=== PATIENT | female | born 1930 | race Caucasian/White ===

== ENCOUNTER 2017-03-23 16:14 | Observation (INO) | payer MEDICARE, BC ==
[2017-03-23 16:52] LABS: Mean Platelet Volume 5.7 fL (7.4-10.4); Red Blood Cell (RBC) Count 3.39 mill/uL (4.20-5.40); White Blood Cell (WBC) Count 8.8 thou/uL (4.8-10.8)
--- NOTE | 2017-03-23 17:10 | RAD ---
PORTABLE AP CHEST X-RAY 03/23/17 HISTORY: Dizziness and left sided rib pain. History of CHF. COMPARISON: 09/22/16. Biapical pleural and parenchymal scarring is again seen, asymmetrically greater on the left, but sim ilar to the prior exam. The cardiac silhouette and pulmonary vasculature are within normal limits. I nterstitial prominence noted on the prior study is not appreciated on today's exam. The lungs are ot herwise clear. Vascular calcifications are seen in the thoracic aorta. There is osteopenia. No other interval change. IMPRESSION: 1. Stable chronic lung changes with biapical pleural and parenchymal scarring, asymmetrically g reater on the left. No acute cardiopulmonary process is seen. 2. Osteopenia. POS: [facility]
[2017-03-23 17:11] LABS: #Basophils 0.1 thou/uL (0.0-0.2); #Eosinphils 0.1 thou/uL (0.0-0.7); #Lymphocytes 2.7 thou/uL (1.20-3.40); #Monocytes 0.8 thou/uL (0.11-0.59); #Neutrophils 5.2 thou/uL (1.40-6.50); %Basophils 0.6 % (0.0-1.0); %Eosinophils 1.2 % (0.0-10.0); %Lymphocytes 30.6 % (21.0-51.0); %Monocytes 8.7 % (0.0-10.0)
[2017-03-23 17:12] LABS: Macrocytosis SLIGHT = 6-15 cells (100X) (0-5/hpf)
[2017-03-23 17:18] LABS: ALT (SGPT) 28 U/L (8-55); AST (SGOT) 32 U/L (5-34); Alkaline Phosphatase 59 U/L (40-150); Anion Gap 11 mmol/L (10-20); BUN (Urea Nitrogen) 47 mg/dL (9.8-20.1); Bilirubin, Total 0.4 mg/dL (0.2-1.2); Calc. Creatinine Clearance 0 mL/min (70-130); Calcium 10.1 mg/dL (7.8-10.44); Carbon Dioxide 30 mmol/L (23-31); Chloride 103 mmol/L (98-107); Estimated GFR-MDRD 31; Protein, Total 7.8 g/dL (6.0-8.3); Troponin I Less than 0.010 ng/mL (< 0.028)
[2017-03-23] MEDS ORDERED: Acetaminophen 500 MG TAB ONE (18:02)
--- NOTE | 2017-03-23 18:14 | CT ---
CT ABDOMEN AND PELVIS WITHOUT IV CONTRAST 03/23/17 HISTORY: Left sided abdominal pain, predominantly in the left upper quadrant. history of hysterectomy as well as prior bowel resection and appendectomy and cholecystectomy. COMPARISON: 07/12/13. FINDINGS: As noted on a prior exam, there are bilateral nonobstructing renal calculi. There is a large hypodense lesion at the inferior pole left kidney with prominent hypodense lesion a gain seen at the superior pole left kidney, each of which is large in size compared to the prior angella dy but again likely represents cysts. There are subcentimeter too small to characterize hypodense l esions in the right kidney also statistically likely representing cysts. The liver, spleen, pancreas, bilateral adrenal glands, and urinary bladder demonstrate a grossly nor mal nonenhanced CT appearance. No ureteral calculi are seen and there is no hydronephrosis. Dense vascular calcifications are again seen in the abdominal aorta and involving the iliac arteries . Moderate amount of retained fecal material seen throughout the colon suggesting an element of consti pation. Degenerative changes are again present in the spine. Postsurgical changes related to cholecystectomy as well as hysterectomy are noted. There has been no other interval change from prior exam. IMPRESSION: 1. Nonobstructing bilateral renal calculi. 2. Large left renal cyst with difficult to characterize hypodense right renal lesions also stat istically likely representing cysts. 3. Cholecystectomy and hysterectomy. 4. Constipation. 5. Prominent degenerative changes in the spine. 6. No evidence of a bowel obstruction. POS: [facility]
[2017-03-23 18:36] LABS: Bilirubin Negative (Negative); Blood, Urine Negative (Negative); Glucose, Urine (Dipstick) Negative (Negative); Ketone, Urine Negative (Negative); Nitrite Negative (Negative); Protein, Urine (Dipstick) Negative (Neg-Trace); Urobilinogen 0.2 mg/dL (0.2-1.0)
[2017-03-23 21:55] LABS: Troponin I Less than 0.010 ng/mL (< 0.028)
[2017-03-23] MEDS ORDERED: Ondansetron ODT 4 MG TAB SL PRN (22:13)
[2017-03-23] MEDS ORDERED: Ondansetron HCl/PF 4 MG/2 ML Vial IVP PRN ×2 (22:13→22:36)
[2017-03-23] MEDS ORDERED: Acetaminophen 325 MG TAB PO PRN (22:13)
[2017-03-23] MEDS ORDERED: Ondansetron ODT 4 MG TAB PO PRN (22:36)
[2017-03-23] MEDS ORDERED: cloNIDine HCl 0.1 MG TAB PO PRN (22:36)
[2017-03-23] MEDS ORDERED: Acetaminophen 500 MG TAB PO PRN (22:36)
[2017-03-23 22:58] VITALS: BMI 16.6
[2017-03-24 00:22] LABS: Troponin I 0.012 ng/mL (< 0.028)
[2017-03-24] MEDS: Sodium Chloride 0.9% 1,000 ML IV SCH ×2 (00:50→13:36)
--- NOTE | 2017-03-24 01:07 | HP ---
DATE OF ADMISSION: 03/23/2017 PRIMARY CARE PHYSICIAN: Dr. Sukhwinder Dawson. CHIEF COMPLAINT: General weakness, headache, abdominal pain, and rib pain. HISTORY OF PRESENT ILLNESS: This is an 86-year-old female who presents to [facility] with a multitude of complaints seemingly unrelated. The patient's history is dif ficult to follow as she complains of multiple somatic complaints including abdominal pain, constipat ion, rib pain, headache and general weakness. The patient denies any specific fever, chills or expo sure history. The patient states she is living in the [place], [place] area with her family. Ambulates with a rolling walker, but does have a history of falls. The patient denies any recent fall or inj ury, decreased appetite or change to her bowel habits other than the constipation, which is chronic. The patient denies any specific increased shortness of breath, fever, chills, cough, congestion or recent vaccinations. The patient is unsure of any change to her chronic medication regimen. The p atient gives a vague description of her symptoms and does not correlate them as clusters of symptoms or any relationship. The patient denied any specific visual change, unilateral weakness, recent lo calize trauma, hematemesis or melena. In the emergency room, the patient underwent general evaluati on including CT of the abdomen and pelvis showing large amount of retained fecal material consistent with constipation. Chronic changes noted on the scan, please see dictated report for full details. The patient also underwent chest imaging showing no evidence of acute infiltrate. The patient rec eived Tylenol and was transferred to the telemetry unit for observation. PAST MEDICAL HISTORY: 1. History of diastolic congestive heart failure with ejection fraction of 50% to 55%. 2. Hypertension. 3. Hypothyroidism. 4. Chronic kidney disease, stage 3. 5. Chronic macrocytic anemia. 6. Moderate protein calorie malnutrition. 7. Gastroesophageal reflux disease. 8. Anxiety. 9. Question of Alzheimer's dementia. 10. Chronic obstructive pulmonary disease. 11. Chronic hyponatremia. PAST SURGICAL HISTORY: 1. Status post appendectomy. 2. Status post cholecystectomy. 3. Status post renal lithiasis with lithotripsy. 4. Status post hysterectomy. CURRENT MEDICATIONS: 1. Vitamin C 1 tab p.o. daily. 2. Azelastine 0.15% one spray in each naris daily p.r.n. 3. Symbicort 160/4.5 one puff inhaled b.i.d. 4. Multivitamin 1 tab p.o. daily. 5. Coreg 6.25 mg p.o. b.i.d. 6. Cranberry extract 500 mg p.o. daily. 7. Vitamin B12 of 1000 mcg p.o. daily. 8. Estradiol 0.01% vaginal cream 1 unit vaginally daily. 9. Ferrous sulfate 325 mg p.o. b.i.d. 10. Flovent Diskus 50 mcg 1 spray in each naris daily. 11. Latanoprost 0.005% ophthalmic solution 1 drop to each eye daily. 12. Levothyroxine 50 mcg p.o. daily. 13. Lisinopril 10 mg one tab p.o. daily. 14. Myrbetriq 50 mg p.o. daily. 15. Remeron 15 mg p.o. at bedtime. 16. Osphena 60 mg 1 tab p.o. daily. 17. Protonix 40 mg 1 tab p.o. daily. 18. MiraLax 17 grams p.o. daily. 19. Seroquel 50 mg p.o. at bedtime. 20. BuSpar 15 mg p.o. b.i.d. ALLERGIES: ASPIRIN, CODEINE, DOXYCYCLINE, ERYTHROMYCIN, and ADHESIVE TAPE. FAMILY HISTORY: No inheritable diseases per patient report. SOCIAL HISTORY: The patient resides with multiple family members in the [place], [place] area. Ambulat ory with use of a rolling walker. No current tobacco, alcohol or illicit drug use. REVIEW OF SYSTEMS: The following complete review of systems was negative, unless otherwise mentione d in the HPI or below: Constitutional: Weight loss or gain, ability to conduct usual activities. Skin: Rash, itching. Eyes: Double vision, pain. ENT/Mouth: Nose bleeding, neck stiffness, pain, tenderness. Cardiovascular: Palpitations, dyspnea on exertion, orthopnea. Respiratory: Shortness of breath, wheezing, cough, hemoptysis, fever or night sweats. Gastrointestinal: Poor appetite, abdominal pain, heartburn, nausea, vomiting, constipation, or diar jayshree. Genitourinary: Urgency, frequency, dysuria, nocturia. Musculoskeletal: Pain, swelling. Neurologic/Psychiatric: Anxiety, depression. Allergy/Immunologic: Skin rash, bleeding tendency. PHYSICAL EXAMINATION: VITAL SIGNS: On admission, blood pressure 127/67, pulse 80, respiratory rate 20, temperature 98 deg alyssia Fahrenheit, O2 saturation 100% on room air. GENERAL APPEARANCE: This is an 86-year-old female, alert and oriented x2, pleasant, conve rsant, in no acute distress. HEENT: Pupils are equal, round, and reactive to light and accommodation. Extraocular muscles are i ntact. No scleral icterus, no conjunctival injection. Nares patent. OP is clear. Teeth in fair r epair. NECK: Supple, no cervical adenopathy, no thyromegaly, no carotid bruits, no JVD appreciated. Cervi patrica spine with full active and passive range of motion. CHEST: Lungs are clear to auscultation bilaterally. CARDIOVASCULAR: S1, S2, with a 2/6 systolic ejection murmur in the left upper sternal border. ABDOMEN: Rounded, soft, nontender, nondistended. Bowel sounds are positive in all four quadrants. There is no hepatosplenomegaly, no abdominal bruits, no rebound or guarding appreciated. EXTREMITIES: Warm and dry with fair turgor. No clubbing, cyanosis or asymmetric edema appreciated. Pulses palpable distally at the dorsalis pedis, posterior tibial and popliteal arteries bilaterall y. Capillary refill less than 2 seconds. NEUROLOGIC: Cranial nerves II-XII are grossly intact. No focal or lateralizing signs appreciated. PERTINENT LABORATORY AND X-RAY FINDINGS: BUN 47, creatinine 1.59 with estimated GFR of 31, glucose 131, calcium 10.1. LFTs within normal limits. Troponin I negative x2. BNP 251, previously noted 1 423 on 09/22/2016. CBC showed a white blood cell count of 8.8, hemoglobin 12, hematocrit 37, MCV 10 9, platelet count 344 with normal differential. Urinalysis shows small leukocyte esterase. Portabl e chest x-ray dated 03/23/2017 showed chronic changes in bilateral lung glass. CT of the abdomen a nd pelvis dated 03/23/2017 showed moderate amount of retained fecal material throughout the colon maldonado ggestive of constipation. Large left renal cyst. Right renal lesion consistent with cysts. Nonobs tructive bilateral renal calculi. Prominent degenerative changes of the spine. EKG dated 7 by my interpretation shows sinus mechanism with heart rates in the 80s. Premature atrial complexe s noted. Normal R-wave progression noted in the precordial leads. Normal axis. No acute ST-T wave changes appreciated. ASSESSMENT AND PLAN: 1. Abdominal pain, appears secondary to constipation. Continue supportive measures. Stool softene rs and lactulose 20 grams p.o. daily p.r.n. Continue to monitor voiding. 2. Multiple somatic complaints, etiology unclear. No specific evidence of acute pathology. Suspec t musculoskeletal in origin. 3. Acute kidney injury on chronic kidney disease, stage 2-3. We will continue intravenous normal s lian at 75 mL per hour and avoid nephrotoxic agents and contrast media. Repeat creatinine in the a .m. 4. Anxiety/depression. Appears prominent role in patient's presentation. We will resume home nakia men of anxiolytics and monitor clinically. 5. Hypertension. We will resume home antihypertensive regimen and monitor clinically. Hold lisino pril due to acute kidney injury. 6. Deconditioning with history of falls. We will obtain PT evaluation in the a.m. General fall pr ecautions. 7. Prophylaxis. Sequential compression devices while in bed. Pepcid 20 mg p.o. b.i.d. PT evaluat ion pending. 8. Code status is FULL. Surrogate medical decision maker is the patient's daughter.
[2017-03-24 05:47] LABS: Band 7 % (5-11); Hematocrit 33.2 % (36.0-47.0); Mean Platelet Volume 5.7 fL (7.4-10.4); Neutrophil 55 % (42-75); Red Blood Cell (RBC) Count 3.03 mill/uL (4.20-5.40); White Blood Cell (WBC) Count 8.5 thou/uL (4.8-10.8)
[2017-03-24 05:52] LABS: Anion Gap 9 mmol/L (10-20); BUN (Urea Nitrogen) 49 mg/dL (9.8-20.1); Calc. Creatinine Clearance 20 mL/min (70-130); Calcium 9.3 mg/dL (7.8-10.44); Carbon Dioxide 28 mmol/L (23-31); Chloride 107 mmol/L (98-107); Estimated GFR-MDRD 34
[2017-03-24] MEDS ORDERED: Levothyroxine Sodium 50 MCG TAB PO SCH (06:00)
[2017-03-24] MEDS ORDERED: Polyethylene Glycol 3350 17 GM Packet PO SCH (09:00)
[2017-03-24] MEDS ORDERED: FLU VACC TS2017-18 (>65YR) 0.5 ML SYRINGE IM ONE (09:00)
[2017-03-24] MEDS ORDERED: Latanoprost 0.005% Ophth Soln 2.5 ml Bottle EA EYE SCH (09:00)
[2017-03-24] MEDS ORDERED: Famotidine 20 MG TAB PO SCH (09:00)
[2017-03-24] MEDS: Carvedilol 6.25 MG TAB PO SCH ×2 (09:16→20:36)
--- NOTE | 2017-03-24 13:56 | PDOC.PN ---
- Subjective Encounter Start Date: 03/24/17 Encounter Start Time: 08:00 Pt seen for followup re: constipation. Reports generalized weakness. No chest pain, fevers or chills. - Objective Resuscitation Status: Resuscitation Status FULL:Full Resuscitation MAR Reviewed: Yes Vital Signs & Weight: Vital Signs (12 hours) Temp Pulse Resp BP BP Pulse Ox 03/24/17 11:10 96.1 F L 83 12 132/99 H 96 03/24/17 09:16 169/74 H 03/24/17 09:10 96.1 F L 83 12 169/74 H 95 03/24/17 04:00 98.1 F 90 18 167/78 H 94 L Weight Admit Weight 100 lb Weight 100 lb I&O: 03/23/17 03/24/17 03/25/17 06:59 06:59 06:59 Intake Total 650 Output Total 600 Balance 50 Result Diagrams: 03/24/17 05:10 03/24/17 05:10 EKG Reviewed by me: Yes (Tele: NSR) Phys Exam - Physical Examination Constitutional: NAD HEENT: moist MMs, oral pharynx no lesions Neck: supple Respiratory: no wheezing, no rales, no rhonchi, clear to auscultation bilateral Cardiovascular: RRR, no rub Gastrointestinal: soft, no distention, positive bowel sounds Mild suprapubic tenderness, no guarding or rigidity Musculoskeletal: pulses present Neurological: moves all 4 limbs Psychiatric: normal affect Skin: no rash, normal turgor, cap refill <2 seconds Dx/Plan (1) Constipation Code(s): K59.00 - CONSTIPATION, UNSPECIFIED Status: Acute (2) Generalized weakness Code(s): R53.1 - WEAKNESS Status: Acute (3) Alzheimer's dementia Code(s): G30.9 - ALZHEIMER'S DISEASE, UNSPECIFIED Status: Chronic (4) COPD (chronic obstructive pulmonary disease) Status: Chronic Comment: (5) GERD (gastroesophageal reflux disease) Code(s): K21.9 - GASTRO-ESOPHAGEAL REFLUX DISEASE WITHOUT ESOPHAGITIS Status: Chronic (6) Glaucoma Code(s): H40.9 - UNSPECIFIED GLAUCOMA Status: Chronic (7) Hypertension Code(s): I10 - ESSENTIAL (PRIMARY) HYPERTENSION Status: Chronic (8) Hypothyroidism Code(s): E03.9 - HYPOTHYROIDISM, UNSPECIFIED Status: Chronic (9) Protein-calorie malnutrition, moderate Code(s): E44.0 - MODERATE PROTEIN-CALORIE MALNUTRITION Status: Chronic - Plan PT/OT, out of bed/ambulate, DVT proph w/SCDs * . laxatives for constipation. Rehab screen. CKD stable. Dementia stable. GERD stable. Monitor vital signs and titrate antihypertensives as needed. Review of Systems - Review of Systems Constitutional: negative: Fever, Chills, Sweats, Weakness, Malaise Respiratory: negative: Cough, Dry, Shortness of Breath, Hemoptysis, SOB with Excertion, Pleuritic Pain, Sputum, Wheezing Cardiovascular: negative: Chest Pain, Palpitations, Orthopnea, Paroxysmal Noc. Dyspnea, Edema, Light Headedness Gastrointestinal: Abdominal Pain, Constipation. negative: Nausea, Vomiting, Diarrhea, Melena, Hematochezia Genitourinary: negative: Dysuria, Frequency, Incontinence, Hematuria, Retention - Medications/Allergies Allergies/Adverse Reactions: Allergies Allergy/AdvReac Type Severity Reaction Status Date / Time adhesive Allergy Verified 09/04/16 03:52 aspirin Allergy Verified 09/04/16 03:52 codeine Allergy Verified 09/04/16 03:52 doxycycline Allergy Verified 09/04/16 03:52 erythromycin base Allergy Verified 09/04/16 03:52 [Erythromycin Base] Latex, Natural Rubber Allergy Verified 09/04/16 03:52 montelukast Allergy Verified 09/04/16 03:52 Penicillins Allergy Verified 09/04/16 03:52 Sulfa (Sulfonamide Allergy Verified 09/04/16 03:52 Antibiotics) Medications: Current Medications Acetaminophen (Tylenol) 1,000 mg PO Q6H PRN PRN Reason: Headache/Fever or Mild Pain Last Admin: 03/24/17 00:49 Dose: 1,000 mg Carvedilol (Coreg) 6.25 mg PO BID [facility] Last Admin: 03/24/17 09:16 Dose: 6.25 mg Clonidine HCl (Catapres) 0.1 mg PO Q4H PRN PRN Reason: Systolic BP > 180 Famotidine (Pepcid) 20 mg PO DAILY [facility] Last Admin: 03/24/17 09:17 Dose: 20 mg Hydralazine HCl (Apresoline) 10 mg SLOW IVP Q4H PRN PRN Reason: Systolic BP > 180 Sodium Chloride (Normal Saline 0.9%) 1,000 mls @ 75 mls/hr IV .[id number] [facility] Last Admin: 03/24/17 13:36 Dose: 1,000 mls Lactulose (Lactulose) 20 gm PO DAILYPRN PRN PRN Reason: Constipation Last Admin: 03/24/17 09:47 Dose: 20 gm Latanoprost (Xalatan 0.005% Ophth Soln) 1 drop EA EYE DAILY [facility] Last Admin: 03/24/17 08:24 Dose: Not Given Levothyroxine Sodium (Synthroid) 50 mcg PO 0600 [facility] Last Admin: 03/24/17 05:23 Dose: 50 mcg Mirabegron (Myrbetriq Er) 50 mg PO DAILY [facility] Last Admin: 03/24/17 08:24 Dose: Not Given Ondansetron HCl (Zofran Odt) 4 mg PO Q6H PRN PRN Reason: Nausea/Vomiting Ondansetron HCl (Zofran) 4 mg IVP Q6H PRN PRN Reason: Nausea/Vomiting Polyethylene Glycol (Miralax) 17 gm PO DAILY [facility] Last Admin: 03/24/17 09:17 Dose: 17 gm Sodium Chloride (Flush - Normal Saline) 10 ml IVF Q12HR [facility] Sodium Chloride (Flush - Normal Saline) 10 ml IVF PRN PRN PRN Reason: Saline Flush
[2017-03-24] MEDS ORDERED: Bisacodyl 5 MG TAB PO PRN (14:00)
[2017-03-24] MEDS ORDERED: Bisacodyl 5 MG TAB PO SCH (14:00)
--- NOTE | 2017-03-24 18:37 | DIS ---
DATE OF ADMISSION: 03/23/2017 DATE OF DISCHARGE: 03/24/2017 PRIMARY CARE PROVIDER: Sukhwinder Dawson M.D. DISCHARGE DIAGNOSIS: Constipation, resolved. CONDITION OF PATIENT AT THE TIME OF DISCHARGE: Stable. I assessed Ms. Pineda on the day of discha rge. Please refer to my daily hospitalist progress note for further information regarding this face -to-face encounter. DISCHARGE MEDICATIONS: In addition to the preadmission home medications listed on history and physi patrica note from 03/23/2017, she is being started on Dulcolax 10 mg daily as needed. HOSPITAL COURSE: Ms. Pineda is a pleasant 86-year-old lady who was admitted to [facility] for abdominal discomfort on 03/23/2017. She was found to be constipated. She improv ed with laxatives. She is being discharged home in a stable condition. On the day of discharge, she has sodium 140, potassium 4.3, blood urea nitrogen 49, creatinine 1.44, white count 8500, hemoglobin 10.9, and platelet count 282,000. She is advised to follow up with her primary care provider in 3-5 days. She was offered rehab sunge n during this admission. She refused rehab screen and wished to go home. She was ambulating with animal rehabilitator today without any complaints. Many thanks for allowing me to participate in your patient's care. Please feel free to contact me w ith any questions or concerns. DISCHARGE DISPOSITION: Home.
[2017-03-24 20:07] VITALS: BP 178/77; TEMP 97.9
== END 2017-03-24 21:29 | disposition home or self-care (01) ==
LOC: ERS 16:14 → 2NO 20:00
PROVIDERS: ADMIT Internal Medicine; ATTEND Internal Medicine
DX: K59.00 Constipation, unspecified (principal); R10.9 Unspecified abdominal pain; R07.81 Pleurodynia; R53.1 Weakness; I13.0 Hypertensive heart and chronic kidney disease with heart failure and stage 1 through stage 4 chronic kidney disease, or unspecified chronic kidney disease; I50.30 Unspecified diastolic (congestive) heart failure; N18.3 Chronic kidney disease, stage 3 (moderate); N17.9 Acute kidney failure, unspecified; E03.9 Hypothyroidism, unspecified; D64.9 Anemia, unspecified; E44.0 Moderate protein-calorie malnutrition; F41.9 Anxiety disorder, unspecified; F32.9 Major depressive disorder, single episode, unspecified; K21.9 Gastro-esophageal reflux disease without esophagitis; J44.9 Chronic obstructive pulmonary disease, unspecified; E87.1 Hypo-osmolality and hyponatremia; Z79.51 Long term (current) use of inhaled steroids; Z79.1 Long term (current) use of non-steroidal anti-inflammatories (NSAID); Z79.890 Hormone replacement therapy; Z79.899 Other long term (current) drug therapy; Z88.6 Allergy status to analgesic agent; Z88.1 Allergy status to other antibiotic agents; Z88.5 Allergy status to narcotic agent; Z91.048 Other nonmedicinal substance allergy status; Z91.040 Latex allergy status; Z88.0 Allergy status to penicillin; Z88.2 Allergy status to sulfonamides; Z90.49 Acquired absence of other specified parts of digestive tract; Z90.710 Acquired absence of both cervix and uterus; Z98.890 Other specified postprocedural states; Z91.81 History of falling; Z87.891 Personal history of nicotine dependence
CPT/HCPCS: 71010; 74176; 80048; 80053; 82553; 83880; 84484 ×2; 85007; 85025; 85027; 93005; 96360; 96361; 97116; 97139 ×2; 99285; G0378; G8978; G8979; G8980; 36415; 81003; 81015; A4353

== ENCOUNTER 2018-01-23 13:33 | Emergency (ER) | payer MEDICARE, BC ==
[2018-01-23 14:40] LABS: Bilirubin Negative (Negative); Clarity CLEAR (Clear); Glucose, Urine (Dipstick) Negative (Negative); Leukocyte Trace (Negative); Nitrite Negative (Negative); Protein, Urine (Dipstick) Negative (Neg-Trace); Specific Gravity, Urine 1.012 (1.002-1.036); Urobilinogen 0.2 mg/dL (0.2-1.0); pH, Urine 5.5 (5.0-9.0)
[2018-01-23 14:41] LABS: Bacteria/HPF None Seen HPF (None Seen); Hyaline Casts/LPF 0-3 HYALINE CAST LPF (0-3 Hyaline); Pathc Cast-AUWi Flag 0.29 (0-2.49); Squamous Epithelial 0-3 HPF (0-3)
[2018-01-23 14:53] LABS: Blood, Urine Small (Negative)
[2018-01-23 14:59] LABS: #Basophils 0.1 thou/uL (0.0-0.2); #Eosinphils 0.1 thou/uL (0.0-0.7); #Lymphocytes 1.3 thou/uL (1.20-3.40); #Monocytes 0.9 thou/uL (0.11-0.59); #Neutrophils 9.3 thou/uL (1.40-6.50); %Basophils 0.5 % (0.0-1.0); %Eosinophils 0.8 % (0.0-10.0); %Monocytes 7.9 % (0.0-10.0); %Neutrophils 79.8 % (42.0-75.0); Hemoglobin 10.3 g/dL (12.0-16.0); Mean Corpuscular HGB CONC 34.7 g/dL (32.0-36.0); Mean Corpuscular Hemoglobin 35.1 pg (27.0-31.0); Mean Platelet Volume 5.8 fL (7.4-10.4); Platelet Count 277 thou/uL (130-400); Red Blood Cell (RBC) Count 2.94 mill/uL (4.20-5.40); White Blood Cell (WBC) Count 11.7 thou/uL (4.8-10.8)
[2018-01-23 15:11] LABS: ALT (SGPT) 18 U/L (8-55); AST (SGOT) 29 U/L (5-34); Alkaline Phosphatase 129 U/L (40-150); Anion Gap 10 mmol/L (10-20); BUN (Urea Nitrogen) 43 mg/dL (9.8-20.1); Bilirubin, Total 0.5 mg/dL (0.2-1.2); Calc. Creatinine Clearance 0 mL/min (70-130); Calcium 9.3 mg/dL (7.8-10.44); Carbon Dioxide 27 mmol/L (23-31); Chloride 107 mmol/L (98-107); Estimated GFR-MDRD 31; Globulin 3.4 g/dL (2.4-3.5); Glucose 109 mg/dL (83-110); Potassium 4.4 mmol/L (3.5-5.1); Protein, Total 7.4 g/dL (6.0-8.3); Sodium 140 mmol/L (136-145)
--- NOTE | 2018-01-23 15:13 | RAD ---
CHEST 1 VIEW: HISTORY: Weakness. COMPARISON: Chest radiograph 03/23/17. FINDINGS: There is an abnormal nodular density in the left lung apex. Lungs are slightly hyperinflated. There is some scarring in the right lung apex. There is mild ectasia of the aorta. Dense calcifications of transverse aorta. IMPRESSION: Abnormal nodular density in the left lung apex appears relatively similar to slightly increased from 2016. Nonemergent CT chest may be performed if clinically warranted. POS: [facility]
[2018-01-23 15:16] LABS: CKMB 2.4 ng/mL (0-6.6); Troponin I Less than 0.010 ng/mL (< 0.028)
== END 2018-01-23 17:09 | disposition home or self-care (01) ==
LOC: ERS 13:33
DX: I11.0 Hypertensive heart disease with heart failure (principal); I50.9 Heart failure, unspecified; R55 Syncope and collapse; E03.9 Hypothyroidism, unspecified; Z79.899 Other long term (current) drug therapy
CPT/HCPCS: 36415; 51701; 71045; 80053; 81003; 81015; 82553; 83880; 84484; 85025; 87086; 93005; A4353

== ENCOUNTER 2018-02-17 10:49 | Inpatient (IN) | payer MEDICARE, BC ==
[~2018-02-17 10:49] MED LIST: ISOVUE-370 76%-LOCM 1 ML ONE
[2018-02-17 11:22] LABS: Hemoglobin 8.9 g/dL (12.0-16.0); Mean Corpuscular HGB CONC 31.4 g/dL (32.0-36.0); Mean Corpuscular Hemoglobin 31.5 pg (27.0-31.0); Platelet Count 278 thou/uL (130-400); RBC Distribution Width 12.4 % (11.5-14.5); Red Blood Cell (RBC) Count 2.82 mill/uL (4.20-5.40)
[2018-02-17] MEDS ORDERED: cefTRIAXone\\ROCEPHIN 2 GM VIAL ONE (11:29)
[2018-02-17] MEDS ORDERED: Acetaminophen 325 MG TAB ONE (11:29)
[2018-02-17 11:43] LABS: ALT (SGPT) 14 U/L (8-55); AST (SGOT) 23 U/L (5-34); Albumin 3.8 g/dL (3.4-4.8); Alkaline Phosphatase 114 U/L (40-150); Anion Gap 15 mmol/L (10-20); BUN (Urea Nitrogen) 37 mg/dL (9.8-20.1); Bilirubin, Total 0.3 mg/dL (0.2-1.2); Calc. Creatinine Clearance 26 mL/min (70-130); Calcium 9.3 mg/dL (7.8-10.44); Carbon Dioxide 19 mmol/L (23-31); Chloride 106 mmol/L (98-107); Estimated GFR-MDRD 42; Globulin 3.7 g/dL (2.4-3.5); Glucose 124 mg/dL (83-110); Potassium 4.3 mmol/L (3.5-5.1); Protein, Total 7.5 g/dL (6.0-8.3); Sodium 136 mmol/L (136-145)
[2018-02-17] MEDS ORDERED: GENTAMICIN SULFATE IVPB SCH (11:45)
[2018-02-17] MEDS ORDERED: SODIUM CHLORIDE 0.9% IVPB SCH (11:45)
[2018-02-17 11:58] LABS: Bilirubin Negative (Negative); Blood, Urine Small (Negative); Clarity CLEAR (Clear); Glucose, Urine (Dipstick) Negative (Negative); Leukocyte Negative (Negative); Nitrite Negative (Negative); Protein, Urine (Dipstick) Negative (Neg-Trace); Specific Gravity, Urine 1.014 (1.002-1.036); Urobilinogen 0.2 mg/dL (0.2-1.0)
[2018-02-17 11:59] LABS: Bacteria/HPF None Seen HPF (None Seen); Hyaline Casts/LPF 0-3 HYALINE CAST LPF (0-3 Hyaline); Pathc Cast-AUWi Flag 0.29 (0-2.49); Squamous Epithelial None Seen HPF (0-3); WBC/HPF 0-3 HPF (0-3)
[2018-02-17 12:00] LABS: Band 5 % (5-11); Hypochromia MODERATE=16-30 cells (100X) (0-5/hpf); Lymphocytes 8 % (21-51); MDiff Complete? YES; Mean Platelet Volume 6.5 fL (7.4-10.4); Microcytosis SLIGHT = 6-15 cells (100X) (0-5/hpf); Neutrophil 85 % (42-75); Reactive Lymphocytes 2 % (0-10); White Blood Cell (WBC) Count 20.5 thou/uL (4.8-10.8)
--- NOTE | 2018-02-17 14:21 | RAD ---
CHEST 1 VIEW: HISTORY: An 87-year-old female with a history of fever and urinary retention. COMPARISON: 01/23/18. FINDINGS: Stable biapical pleural-based parenchymal changes slightly more prominent on the left. Bilateral david ulder joint arthrosis. Minimal stable increased linear and interstitial markings in the lungs bilate rally. Heart size is within normal limits. IMPRESSION: Stable parenchymal changes bilaterally, particularly in the apices. No confluent pneumonia, overt ed graham, or pleural effusion. Atherosclerosis of the aorta with ectasia. No evidence for pneumonia. POS: [facility]
--- NOTE | 2018-02-17 14:49 | CT ---
ABDOMEN AND PELVIC CT SCAN WITH IV CONTRAST: HISTORY: An 87-year-old female with a history of urinary retention with chills and fever last night. FINDINGS: The lung bases show no acute process. Status post cholecystectomy. Minimal dilatation of the common bile duct and some mild central hepatic ductal dilatation. The pancreas is somewhat small. The spl een is unremarkable. Multiple bilateral renal cysts with some nonobstructing bilateral renal calculi . No evidence for acute obstruction. Postoperative changes in the region of the cecum. There is a Johnson catheter within the urinary bladder. There is some multilevel lumbar spinal canal stenosis. Arteriovascular calcific changes. No abscess or abnormal fluid collection. IMPRESSION: Nonobstructing bilateral renal calculi. Multiple bilateral renal cysts. Status post cholecystectomy with mild dilatation of the common bile duct and central intrahepatic ducts. No evidence for other significant acute process in the abdomen or pelvis. Other findings as above. Small right fat-contai jared inguinal hernia. POS: [facility]
[2018-02-17] MEDS ORDERED: PROVENTIL INHALER 6.7 G (200 INHALATIONS) INH PRN (15:31)
--- NOTE | 2018-02-17 16:13 | HP ---
REASON FOR ADMISSION: Sepsis, possible urinary tract infection. HISTORY OF PRESENTING ILLNESS: The patient gives history of having lower quadrant abdominal pain fro m yesterday evening. She initially thought she had trouble passing urine. She had to go multiple ti mes and was in fact having incontinence in addition to that. She woke up early this morning with fev er and chills. As this was unrelenting, patient was brought to emergency room. Patient says she has had upper respiratory infection 2 weeks back and was given doxycycline for 5 days along with antihis tamine as well. Her last bowel movement was yesterday. No diarrhea, nausea or vomiting. No complai nts of chest pain or palpitation. The patient normally ambulates by herself, but occasionally uses a walker. No complaints of cough or expectoration at present. PAST MEDICAL AND SURGICAL HISTORY: History of recurrent urinary tract infections, hypertension, hist ory of diastolic dysfunction with ejection fraction of 50%-55%, hypothyroidism, chronic anemia, GERD, anxiety, dementia, COPD, history of recurrent chronic hyponatremia, appendectomy, cholecystectomy, p rior history of multiple cysts in the kidneys with stones and prior lithotripsy, history of hysterect tad. CURRENT MEDICATIONS: Patient is on mirtazapine 15 mg p.o. daily, levothyroxine 50 mcg p.o. daily, as pirin 81 mg p.o. daily, Tylenol 500 mg p.o. twice daily, Osphena 60 mg twice daily, this is to build her vaginal tissue in view of recurrent UTIs and low estrogen, Coreg 6.25 mg twice daily, Seroquel 50 mg p.o. at bedtime, Meloxicam 15 mg p.o. daily, buspirone 15 mg p.o. twice daily, lisinopril 10 mg p .o. q.a.m., ferrous sulfate 325 mg twice daily, glucosamine 1000 mg daily, Symbicort inhaler 160/4.5 mcg 2 puffs twice daily, azelastine nasal spray, albuterol inhaler q.6 hourly p.r.n., vitamin D 600 m g p.o. daily, Lasix 20 mg daily, lisinopril 10 mg daily. ALLERGIES: ADHESIVES, CODEINE, ERYTHROMYCIN, LATEX, SINGULAIR and SULFA. Please note, patient is no t allergic to aspirin and has been taking it for the last 2 weeks now. PERSONAL HISTORY: Quit smoking more than 30 years ago. Does not abuse alcohol or drugs. Ambulates by herself, occasionally uses a walker. She lives with her daughter. FAMILY HISTORY: There is no history of heart disease, stroke or cancer in the family. CODE STATUS: The patient is a DNR. I have discussed this with her at bedside. This was confirmed w ith her daughter, Ms. Minor. Ms. Minor is the power of environmental sciences professor for her and the number to reach her is [phone] and [phone] that is her cell number; in case one cannot reach Ms. Minor, her nep hew's number, who also lives with them is [phone]. REVIEW OF SYSTEMS: The following complete review of systems was negative, unless otherwise mentioned in the HPI or below: Constitutional: Weight loss or gain, ability to conduct usual activities. Skin: Rash, itching. Eyes: Double vision, pain. ENT/Mouth: Nose bleeding, neck stiffness, pain, tenderness. Cardiovascular: Palpitations, dyspnea on exertion, orthopnea. Respiratory: Shortness of breath, wheezing, cough, hemoptysis, fever or night sweats. Gastrointestinal: Poor appetite, abdominal pain, heartburn, nausea, vomiting, constipation, or diarr hea. Genitourinary: Urgency, frequency, dysuria, nocturia. Musculoskeletal: Pain, swelling. Neurologic/Psychiatric: Anxiety, depression. Allergy/Immunologic: Skin rash, bleeding tendency. PHYSICAL EXAMINATION: GENERAL: The patient is an 87-year-old female who is currently not in any acute distress. VITAL SIGNS: Blood pressure 120/64, pulse 120 per minute, respiratory rate 20 per minute, temperatur e 98.6 degrees Fahrenheit, saturating 94% on room air. NECK: Supple, no elevated JVD. EYES: Extraocular muscles intact. Pupils reacting to light. ORAL CAVITY: Mucous membranes are dry. No exudates or congestion. CARDIOVASCULAR SYSTEM: S1, S2 heard. Regular rhythm. RESPIRATORY SYSTEM: Air entry 1+ bilaterally. No rales or rhonchi. ABDOMEN: Soft, bowel sounds heard. Mild tenderness in the suprapubic area. No guarding or rigidity . EXTREMITIES: Mild peripheral edema. There is mild calf tenderness in the right lower extremity. No ischemic ulcerations or gangrene. CENTRAL NERVOUS SYSTEM: No gross focal deficits noted. Patient moves all 4 extremities. PSYCHIATRIC SYSTEM: The patient's mood is euthymic. No hallucinations or delusions. IMAGING DATA AND LABORATORY DATA: EKG done shows sinus tachycardia at 112 beats per minute. White c ount of 20, hemoglobin and hematocrit 9 and 28, platelet count 278 with 85% neutrophils, MCV is 100, serum bicarbonate 19, BUN 37, creatinine 1.2, glucose 124. Liver enzymes are within normal limits. Albumin is 3.8. Chest x-ray done shows no acute infiltrate. CT of the abdomen and pelvis with IV co ntrast done shows nonobstructing bilateral renal calculi and multiple bilateral renal cysts. There i s no acute process in the abdomen or pelvis. There is a small right fat-containing inguinal hernia. CLINICAL IMPRESSION AND PLAN: The patient will be admitted to medical floor for sepsis from unknown source. She has had fever with chills early this morning and has had abdominal colic last evening. No diarrhea as such. Her last bowel movement was yesterday. Patient has plenty of stool seen on the CAT scan. It is unclear if patient has constipation in addition to probable urinary tract infection . Blood and urine cultures have been obtained in the ER. She will be placed on Levaquin for now. S he is also dehydrated and we will gently hydrate her. The patient has been on fluid restriction for diastolic dysfunction at home and also takes Lasix. For now, she will be on Symbicort inhaler, buspi carine, Coreg, Xalatan eyedrops, Seroquel, MiraLax, Colace, Osphena, Remeron, Synthroid as before. She will be on normal saline at 80 mL per hour for a total of 2 liters for now.
--- NOTE | 2018-02-17 16:42 | ULT ---
VENOUS DUPLEX SONOGRAM BILATERAL LOWER EXTREMITY 02/17/18 HISTORY: Bilateral leg pain and edema. FINDINGS: Each common femoral vein and greater saphenous junction are evaluated along with each femoral, deep f emoral, popliteal, and posterior tibial vein. Incompletely occlusive thrombus involves the right femo ral vein with incomplete compressibility. Good color and spectral doppler flow are present throughout the remainder of the visualized deep venous structures of each lower extremity. IMPRESSION: Incompletely occlusive thrombus right femoral vein. Findings were called to Dr. Dennison in the Emergency Department at 1629 hours. Code CR POS: [facility]
[2018-02-17 17:30] VITALS: BMI 21.7
[2018-02-17] MEDS: Mometasone/Formoterol 120 PUFF INHALER INH SCH (18:10)
[2018-02-17] MEDS: Sodium Chloride 0.9% 1,000 ML IV SCH (18:16)
[2018-02-17 18:34] LABS: INR-International Normal Ratio 1.1; PTT 32.2 SEC (22.9-36.1); Prothrombin Time 14.1 SEC (12.0-14.7)
[2018-02-17] MEDS: Docusate 100 MG CAP PO SCH (20:57)
[2018-02-17] MEDS: Famotidine 20 MG TAB PO SCH (20:57)
[2018-02-17] MEDS: Carvedilol 6.25 MG TAB PO SCH (20:57)
[2018-02-17] MEDS: Mirtazapine 15 MG TAB PO SCH (20:57)
[2018-02-17] MEDS: busPIRone HCl 10 MG TAB PO SCH (20:57)
[2018-02-17] MEDS: Enoxaparin Sodium 60 MG/0.6 ML SYRINGE SC SCH (20:58)
[2018-02-17] MEDS: Latanoprost 0.005% Ophth Soln 2.5 ml Bottle EA EYE SCH (20:58)
[2018-02-17] MEDS: Guaifenesin DM 100-10/5 ML UDCUP PO PRN (21:23)
[2018-02-17] MEDS: Acetaminophen 325 MG TAB PO PRN (21:23)
[2018-02-18] MEDS ORDERED: Ondansetron HCl/PF 4 MG/2 ML Vial IVP PRN (02:55)
[2018-02-18] MEDS ORDERED: Ondansetron ODT 4 MG TAB PO PRN (02:55)
[2018-02-18 05:29] LABS: #Eosinphils 0.1 thou/uL (0.0-0.7); #Lymphocytes 1.7 thou/uL (1.20-3.40); #Monocytes 1.2 thou/uL (0.11-0.59); #Neutrophils 14.3 thou/uL (1.40-6.50); %Basophils 0.1 % (0.0-1.0); %Eosinophils 0.5 % (0.0-10.0); %Lymphocytes 9.9 % (21.0-51.0); %Monocytes 6.9 % (0.0-10.0); %Neutrophils 82.6 % (42.0-75.0); Hemoglobin 9.2 g/dL (12.0-16.0); Mean Corpuscular HGB CONC 33.9 g/dL (32.0-36.0); Mean Corpuscular Hemoglobin 34.7 pg (27.0-31.0); Mean Platelet Volume 6.2 fL (7.4-10.4); Platelet Count 262 thou/uL (130-400); RBC Distribution Width 12.4 % (11.5-14.5); Red Blood Cell (RBC) Count 2.63 mill/uL (4.20-5.40); White Blood Cell (WBC) Count 17.3 thou/uL (4.8-10.8)
[2018-02-18 05:34] LABS: Anion Gap 14 mmol/L (10-20); BUN (Urea Nitrogen) 28 mg/dL (9.8-20.1); Calc. Creatinine Clearance 30 mL/min (70-130); Calcium 8.6 mg/dL (7.8-10.44); Carbon Dioxide 18 mmol/L (23-31); Chloride 107 mmol/L (98-107); Estimated GFR-MDRD 49; Glucose 90 mg/dL (83-110); Potassium 4.6 mmol/L (3.5-5.1); Sodium 134 mmol/L (136-145)
[2018-02-18] MEDS: Levothyroxine Sodium 50 MCG TAB PO SCH (06:08)
[2018-02-18] MEDS: Sodium Chloride 0.9% 1,000 ML IV SCH (06:08)
[2018-02-18] MEDS: Mometasone/Formoterol 120 PUFF INHALER INH SCH ×2 (07:01→19:18)
[2018-02-18] MEDS ORDERED: Ospemifene [Osphena] 60 MG PO SCH (08:00)
[2018-02-18] MEDS: busPIRone HCl 10 MG TAB PO SCH ×2 (08:12→20:57)
[2018-02-18] MEDS: Carvedilol 6.25 MG TAB PO SCH ×2 (08:12→20:57)
[2018-02-18] MEDS: Docusate 100 MG CAP PO SCH ×2 (08:13→20:58)
[2018-02-18] MEDS: Polyethylene Glycol 3350 17 GM Packet PO SCH (08:13)
[2018-02-18] MEDS ORDERED: Enoxaparin Sodium 40 MG/0.4 ML SYRINGE SC SCH (09:00)
[2018-02-18] MEDS: Enoxaparin Sodium 60 MG/0.6 ML SYRINGE SC SCH ×2 (09:02→20:59)
--- NOTE | 2018-02-18 11:17 | PDOC.PN ---
- Subjective Encounter Start Date: 02/18/18 Encounter Start Time: 08:00 Subjective: awake, oriented well -: no sob or abd pain -: feels better, is fixing to eat her breakfast - Objective Resuscitation Status: Resuscitation Status DNR:Do Not Resuscitate MAR Reviewed: Yes Vital Signs & Weight: Vital Signs (12 hours) Temp Pulse Resp BP BP Pulse Ox 02/18/18 08:12 154/71 H 02/18/18 08:00 98.3 F 95 16 98 02/18/18 07:30 98.3 F 95 16 154/71 H 98 02/18/18 07:01 89 18 100 02/18/18 04:07 98.7 F 91 16 154/82 H 98 02/18/18 00:07 98.7 F 74 16 144/72 H 98 Weight Weight 115 lb 1.6 oz I&O: 02/17/18 02/18/18 02/19/18 06:59 06:59 06:59 Intake Total 1320 Output Total 625 Balance 695 Result Diagrams: 02/18/18 04:41 02/18/18 04:41 Phys Exam - Physical Examination HEENT: PERRLA dry mucosa Neck: no JVD, supple Respiratory: no wheezing, no rales Cardiovascular: RRR, no significant murmur Gastrointestinal: soft, non-tender, positive bowel sounds Musculoskeletal: no edema, pulses present Neurological: non-focal, moves all 4 limbs Psychiatric: A&O x 3 Dx/Plan (1) Sepsis Code(s): A41.9 - SEPSIS, UNSPECIFIED ORGANISM Status: Acute (2) CHF (congestive heart failure) Code(s): I50.9 - HEART FAILURE, UNSPECIFIED Status: Chronic Qualifiers: Qualified Code(s): I50.31 - Acute diastolic (congestive) heart failure Comment: diastolic ef 50-55% (3) Constipation Code(s): K59.00 - CONSTIPATION, UNSPECIFIED Status: Acute Qualifiers: Constipation type: unspecified constipation type Qualified Code(s): K59.00 - Constipation, unspecified (4) Alzheimer's dementia Code(s): G30.9 - ALZHEIMER'S DISEASE, UNSPECIFIED Status: Chronic Qualifiers: Alzheimer's disease onset: unspecified onset Dementia behavioral disturbance: without behavioral disturbance Qualified Code(s): G30.9 - Alzheimer's disease, unspecified; F02.80 - Dementia in other diseases classified elsewhere without behavioral disturbance (5) Anxiety and depression Code(s): F41.9 - ANXIETY DISORDER, UNSPECIFIED; F32.9 - MAJOR DEPRESSIVE DISORDER, SINGLE EPISODE, UNSPECIFIED Status: Chronic (6) COPD (chronic obstructive pulmonary disease) Status: Chronic Qualifiers: COPD type: chronic bronchitis Chronic bronchitis type: unspecified Qualified Code(s): J42 - Unspecified chronic bronchitis Comment: (7) GERD (gastroesophageal reflux disease) Code(s): K21.9 - GASTRO-ESOPHAGEAL REFLUX DISEASE WITHOUT ESOPHAGITIS Status: Chronic Qualifiers: Esophagitis presence: esophagitis presence not specified Qualified Code(s) : K21.9 - Gastro-esophageal reflux disease without esophagitis (8) Hypertension Code(s): I10 - ESSENTIAL (PRIMARY) HYPERTENSION Status: Chronic Qualifiers: Hypertension type: essential hypertension Qualified Code(s): I10 - Essential (primary) hypertension (9) Hypothyroidism Code(s): E03.9 - HYPOTHYROIDISM, UNSPECIFIED Status: Chronic Qualifiers: Hypothyroidism type: unspecified Qualified Code(s): E03.9 - Hypothyroidism , unspecified - Plan is on levaquin, prelim blood and urine cs show no growth -: CT abd/pelvis no ac path -: has dvt of right LE-incomplete occlusion, on lovenox -: d/w patient and daughter about going home on anticoagulant pills -: wbc down to 17k, unclear source. DC if fluids after 2nd bag. * . Review of Systems - Medications/Allergies Allergies/Adverse Reactions: Allergies Allergy/AdvReac Type Severity Reaction Status Date / Time adhesive Allergy Verified 02/17/18 17:23 aspirin Allergy Verified 09/04/16 03:52 codeine Allergy Verified 09/04/16 03:52 doxycycline Allergy Verified 09/04/16 03:52 erythromycin base Allergy Verified 09/04/16 03:52 [Erythromycin Base] Latex, Natural Rubber Allergy Verified 09/04/16 03:52 montelukast Allergy Verified 09/04/16 03:52 Penicillins Allergy Verified 02/17/18 17:24 Sulfa (Sulfonamide Allergy Verified 09/04/16 03:52 Antibiotics) Medications: Current Medications Acetaminophen (Tylenol) 650 mg PO Q4H PRN PRN Reason: Headache/Fever or Pain Last Admin: 09/08/18 21:23 Dose: 650 mg Albuterol Sulfate (Proventil Hfa) 2 puff INH Q6HR PRN PRN Reason: SOB &/or Wheezing Buspirone HCl (Buspar) 15 mg PO BID [facility] Last Admin: 02/18/18 08:12 Dose: 15 mg Carvedilol (Coreg) 6.25 mg PO BID [facility] Last Admin: 02/18/18 08:12 Dose: 6.25 mg Docusate Sodium (Colace) 100 mg PO BID [facility] Last Admin: 02/18/18 08:13 Dose: 100 mg Enoxaparin Sodium (Lovenox) 50 mg SC 00,2099 [facility] Last Admin: 02/18/18 09:02 Dose: 50 mg Famotidine (Pepcid) 20 mg PO 2100 [facility] Last Admin: 02/17/18 20:57 Dose: 20 mg Guaifenesin/Dextromethorphan (Robitussin Dm) 15 ml PO Q4H PRN PRN Reason: Cough Last Admin: 02/17/18 21:23 Dose: 15 ml Levofloxacin 500 mg/ Device 100 mls @ 100 mls/hr IVPB Q2D@1700 [facility] Sodium Chloride (Normal Saline 0.9%) 1,000 mls @ 80 mls/hr IV .[id number] [facility] Stop: 02/18/18 16:30 Last Admin: 02/18/18 06:08 Dose: 1,000 mls Latanoprost (Xalatan 0.005% Oph Soln) 1 drop EA [facility] Last Admin: 02/17/18 20:58 Dose: 1 drop Levothyroxine Sodium (Synthroid) 50 mcg PO 0600 [facility] Last Admin: 02/18/18 06:08 Dose: 50 mcg Mirtazapine (Remeron) 15 mg PO [facility] Last Admin: 02/17/18 20:57 Dose: 15 mg Mometasone Furoate/Formoterol Fumar (Dulera 200 Mcg/5 Mcg Inhaler) 2 puff INH BID-RT [facility] Last Admin: 02/18/18 07:01 Dose: 2 puff Ondansetron HCl (Zofran) 4 mg IVP Q6H PRN PRN Reason: Nausea/Vomiting Ondansetron HCl (Zofran Odt) 4 mg PO Q6H PRN PRN Reason: Nausea/Vomiting Ospemifene [Osphena] (60 Mg) 0 each PO QAM[facility] Polyethylene Glycol (Miralax) 17 gm PO DAILY [facility] Last Admin: 02/18/18 08:13 Dose: 17 gm Quetiapine Fumarate (Seroquel) 50 mg PO [facility] Last Admin: 02/17/18 20:57 Dose: 50 mg
[2018-02-18] MEDS: Famotidine 20 MG TAB PO SCH (20:57)
[2018-02-18] MEDS: Mirtazapine 15 MG TAB PO SCH (20:57)
[2018-02-18] MEDS: Latanoprost 0.005% Ophth Soln 2.5 ml Bottle EA EYE SCH (20:58)
[2018-02-18] MEDS: Guaifenesin DM 100-10/5 ML UDCUP PO PRN (20:59)
[2018-02-19] MEDS: Levothyroxine Sodium 50 MCG TAB PO SCH (05:43)
[2018-02-19] MEDS: Mometasone/Formoterol 120 PUFF INHALER INH SCH ×2 (06:37→18:50)
[2018-02-19] MEDS: Polyethylene Glycol 3350 17 GM Packet PO SCH (09:42)
[2018-02-19] MEDS: Docusate 100 MG CAP PO SCH ×2 (09:42→21:05)
[2018-02-19] MEDS: busPIRone HCl 10 MG TAB PO SCH ×2 (09:46→21:05)
[2018-02-19] MEDS: Enoxaparin Sodium 60 MG/0.6 ML SYRINGE SC SCH (09:46)
[2018-02-19] MEDS: Carvedilol 6.25 MG TAB PO SCH ×2 (09:48→21:05)
[2018-02-19 10:50] LABS: #Eosinphils 0.3 thou/uL (0.0-0.7); #Lymphocytes 1.9 thou/uL (1.20-3.40); #Monocytes 0.7 thou/uL (0.11-0.59); #Neutrophils 4.7 thou/uL (1.40-6.50); %Basophils 0.1 % (0.0-1.0); %Eosinophils 4.4 % (0.0-10.0); %Lymphocytes 24.4 % (21.0-51.0); %Monocytes 9.4 % (0.0-10.0); %Neutrophils 61.8 % (42.0-75.0); Hemoglobin 8.9 g/dL (12.0-16.0); Mean Corpuscular HGB CONC 33.8 g/dL (32.0-36.0); Mean Corpuscular Hemoglobin 34.6 pg (27.0-31.0); Mean Platelet Volume 6.1 fL (7.4-10.4); Platelet Count 304 thou/uL (130-400); RBC Distribution Width 12.2 % (11.5-14.5); Red Blood Cell (RBC) Count 2.57 mill/uL (4.20-5.40); White Blood Cell (WBC) Count 7.6 thou/uL (4.8-10.8)
[2018-02-19 11:10] LABS: Anion Gap 12 mmol/L (10-20); BUN (Urea Nitrogen) 22 mg/dL (9.8-20.1); Calc. Creatinine Clearance 33 mL/min (70-130); Calcium 8.7 mg/dL (7.8-10.44); Carbon Dioxide 22 mmol/L (23-31); Chloride 107 mmol/L (98-107); Estimated GFR-MDRD 54; Glucose 99 mg/dL (83-110); Potassium 4.3 mmol/L (3.5-5.1); Sodium 137 mmol/L (136-145)
--- NOTE | 2018-02-19 13:18 | RAD ---
CHEST ONE VIEW: History: Infiltrate. Dyspnea. Follow up. Comparison: 02-17-18 FINDINGS: Cardiac silhouette is magnified by projection. Pulmonary vasculature upper limits of normal. Mediasti num is midline with aortic calcification. Linear parenchymal opacities of each apex and to a lesser e xtent, at the lung bases, are stable. No lobar consolidation or evidence of pneumothorax. IMPRESSION: Stable radiographic appearance of the chest. POS: [facility]
--- NOTE | 2018-02-19 13:57 | PDOC.PN ---
- Subjective Encounter Start Date: 02/19/18 Encounter Start Time: 11:50 Subjective: feels better, no sob or chest pain -: eating better - Objective Resuscitation Status: Resuscitation Status DNR:Do Not Resuscitate MAR Reviewed: Yes Vital Signs & Weight: Vital Signs (12 hours) Temp Pulse Resp BP BP Pulse Ox 02/19/18 09:48 147/68 H 02/19/18 08:00 99.0 F 79 18 02/19/18 07:08 99.0 F 79 18 147/68 H 95 Weight Weight 115 lb 1.6 oz I&O: 02/18/18 02/19/18 02/20/18 06:59 06:59 06:59 Intake Total 1320 2290 Output Total 625 1975 Balance 695 315 Result Diagrams: 02/19/18 10:25 02/19/18 10:25 Phys Exam - Physical Examination HEENT: PERRLA, moist MMs Neck: no JVD, supple Respiratory: no wheezing, no rales Cardiovascular: RRR, no significant murmur Gastrointestinal: soft, non-tender, positive bowel sounds Musculoskeletal: no edema, pulses present Neurological: non-focal, moves all 4 limbs Psychiatric: normal affect, A&O x 3 Dx/Plan (1) Sepsis Code(s): A41.9 - SEPSIS, UNSPECIFIED ORGANISM Status: Acute Qualifiers: Sepsis type: sepsis due to unspecified organism Qualified Code(s): A41.9 - Sepsis, unspecified organism (2) CHF (congestive heart failure) Code(s): I50.9 - HEART FAILURE, UNSPECIFIED Status: Chronic Qualifiers: Qualified Code(s): I50.31 - Acute diastolic (congestive) heart failure Comment: diastolic ef 50-55% (3) Constipation Code(s): K59.00 - CONSTIPATION, UNSPECIFIED Status: Resolved Qualifiers: Constipation type: unspecified constipation type Qualified Code(s): K59.00 - Constipation, unspecified (4) Alzheimer's dementia Code(s): G30.9 - ALZHEIMER'S DISEASE, UNSPECIFIED Status: Chronic Qualifiers: Alzheimer's disease onset: unspecified onset Dementia behavioral disturbance: without behavioral disturbance Qualified Code(s): G30.9 - Alzheimer's disease, unspecified; F02.80 - Dementia in other diseases classified elsewhere without behavioral disturbance (5) Anxiety and depression Code(s): F41.9 - ANXIETY DISORDER, UNSPECIFIED; F32.9 - MAJOR DEPRESSIVE DISORDER, SINGLE EPISODE, UNSPECIFIED Status: Chronic (6) COPD (chronic obstructive pulmonary disease) Status: Chronic Qualifiers: COPD type: chronic bronchitis Chronic bronchitis type: unspecified Qualified Code(s): J42 - Unspecified chronic bronchitis Comment: (7) GERD (gastroesophageal reflux disease) Code(s): K21.9 - GASTRO-ESOPHAGEAL REFLUX DISEASE WITHOUT ESOPHAGITIS Status: Chronic Qualifiers: Esophagitis presence: esophagitis presence not specified Qualified Code(s) : K21.9 - Gastro-esophageal reflux disease without esophagitis (8) Hypertension Code(s): I10 - ESSENTIAL (PRIMARY) HYPERTENSION Status: Chronic Qualifiers: Hypertension type: essential hypertension Qualified Code(s): I10 - Essential (primary) hypertension (9) Hypothyroidism Code(s): E03.9 - HYPOTHYROIDISM, UNSPECIFIED Status: Chronic Qualifiers: Hypothyroidism type: unspecified Qualified Code(s): E03.9 - Hypothyroidism , unspecified (10) DVT (deep venous thrombosis) Code(s): I82.409 - ACUTE EMBOLISM AND THOMBOS UNSP DEEP VN UNSP LOWER EXTREMITY Status: Acute Qualifiers: DVT location: lower extremity Affected thrombotic vein of extremity: femoral Chronicity: acute Laterality: right Qualified Code(s): I82.411 - Acute embolism and thrombosis of right femoral vein Comment: nonocclusive - Plan is on lovenox full dose, will start eliquis from today -: repeat cxr no ac infiltrate -: wbc down to 7 now, likely had dehydration with roxie and margination -: await opinion -: continue coreg, buspar. DC plan in am * . d/w pts daughter over phone last evening about her coming home on anticoagulation and safety issues including fall etc. Review of Systems - Medications/Allergies Allergies/Adverse Reactions: Allergies Allergy/AdvReac Type Severity Reaction Status Date / Time adhesive Allergy Verified 02/17/18 17:23 aspirin Allergy Verified 09/04/16 03:52 codeine Allergy Verified 09/04/16 03:52 doxycycline Allergy Verified 09/04/16 03:52 erythromycin base Allergy Verified 09/04/16 03:52 [Erythromycin Base] Latex, Natural Rubber Allergy Verified 09/04/16 03:52 montelukast Allergy Verified 09/04/16 03:52 Penicillins Allergy Verified 02/17/18 17:24 Sulfa (Sulfonamide Allergy Verified 09/04/16 03:52 Antibiotics) Medications: Current Medications Acetaminophen (Tylenol) 650 mg PO Q4H PRN PRN Reason: Headache/Fever or Pain Last Admin: 02/17/18 21:23 Dose: 650 mg Albuterol Sulfate (Proventil Hfa) 2 puff INH Q6HR PRN PRN Reason: SOB &/or Wheezing Buspirone HCl (Buspar) 15 mg PO BID [facility] Last Admin: 02/19/18 09:46 Dose: 15 mg Carvedilol (Coreg) 6.25 mg PO BID [facility] Last Admin: 02/19/18 09:48 Dose: 6.25 mg Docusate Sodium (Colace) 100 mg PO BID [facility] Last Admin: 02/19/18 09:42 Dose: Not Given Enoxaparin Sodium (Lovenox) 50 mg SC 0900,2100 [facility] Last Admin: 02/19/18 09:46 Dose: 50 mg Famotidine (Pepcid) 20 mg PO 2100 [facility] Last Admin: 02/18/18 20:57 Dose: 20 mg Guaifenesin/Dextromethorphan (Robitussin Dm) 15 ml PO Q4H PRN PRN Reason: Cough Last Admin: 02/18/18 20:59 Dose: 15 ml Levofloxacin 500 mg/ Device 100 mls @ 100 mls/hr IVPB Q2D@1700 [facility] Latanoprost (Xalatan 0.005% Oph Soln) 1 drop [facility] Last Admin: 02/18/18 20:58 Dose: 1 drop Levothyroxine Sodium (Synthroid) 50 mcg PO 0600 [facility] Last Admin: 02/19/18 05:43 Dose: 50 mcg Mirtazapine (Remeron) 15 mg PO HS [facility] Last Admin: 02/18/18 20:57 Dose: 15 mg Mometasone Furoate/Formoterol Fumar (Dulera 200 Mcg/5 Mcg Inhaler) 2 puff INH BID-RT [facility] Last Admin: 02/19/18 06:37 Dose: 2 puff Ondansetron HCl (Zofran) 4 mg IVP Q6H PRN PRN Reason: Nausea/Vomiting Ondansetron HCl (Zofran Odt) 4 mg PO Q6H PRN PRN Reason: Nausea/Vomiting Ospemifene [Osphena] (60 Mg) 0 each PO QAM[facility] Polyethylene Glycol (Miralax) 17 gm PO DAILY [facility] Last Admin: 02/19/18 09:42 Dose: Not Given Quetiapine Fumarate (Seroquel) 50 mg PO HS [facility] Last Admin: 02/18/18 20:58 Dose: 50 mg
--- NOTE | 2018-02-19 15:28 | CON ---
DATE OF CONSULTATION: 02/19/2018 REASON FOR CONSULTATION: Fever. HISTORY OF PRESENT ILLNESS: This is an 87-year-old, who has a history of COPD, recurrent UTIs, hypertension, some element of cognitive dysfunction, who has had chronic history of abdominal pain, which she localized to the suprapubic area. According to her, she has had this for years. The notes from admission, however, gives us a different account that this was more of an acute event associated with some element of dysuria. She developed fever and chills, was brought to the emergency room. Before this, there was some element of respiratory symptoms, which had been treated with doxycycline and antihistaminics. No headaches, no visual symptoms, sore throat, odynophagia, dysphagia. Some back pain, which is chronic. No diarrhea, no bleeding, vomiting, or nausea. No chest pain. She did have some lower extremity pain as well, particularly on the left side. PAST MEDICAL HISTORY: Recurrent UTIs, hypertension, diastolic dysfunction, GERD , COPD, hyponatremia, appendectomy, cholecystectomy, nephrolithiasis, prior lithotripsy. ALLERGIES: ADHESIVE, ERYTHROMYCIN, LATEX, SINGULAIR, SULFA DRUGS. MEDICATIONS: Mirtazapine, levothyroxine, aspirin, Tylenol, Osphena, Coreg, Seroquel, Meloxicam, BuSpar, lisinopril, ferrous sulfate, Symbicort, glucosamine , azelastine, albuterol, vitamin D, Lasix. SOCIAL HISTORY: Former smoker, quit many years ago, lives with family. Uses a walker for ambulation, but is mobility impaired. FAMILY HISTORY: Noncontributory. PHYSICAL EXAMINATION: VITAL SIGNS: T-max 99.2, blood pressure 147/68, pulse of 79, respirations 18, O2 sat 95%. SKIN EXAM: Shows areas of bruising in the lower extremities, peripheral IV access, and she is voiding with a Johnson catheter assistance. No lymphadenopathy. HEENT: Ocular movements conjugate. Oral cavity with no remarkable findings. NECK: Supple, no jugular vein distention. LUNGS: With diminished breath sounds, but no crackles or wheezing. Mild tenderness in the spine area on palpation. HEART: S1 and S2 with a soft aortic murmur. No S3 or S4. Regular rate. ABDOMEN: Soft with tenderness in the suprapubic area. She has some tenderness in lower extremities, particularly on the left side, medial thigh and medial calf region. NEUROLOGIC: Plantar responses are flexure. Pulses 1+ in dorsalis pedis. She has quite a bit of hearing impairment. Recollection is somewhat limited. Ability to place a sequence of events is also limited. LABORATORY DATA: White cell count 20,000, down to 7.6, hemoglobin 8.9, platelets 305,000, 85% neutrophils. The chemistry with creatinine down to 0.97. Liver profile normal. Urinalysis was essentially normal with 0-3 wbcs. IMAGING STUDIES: Include an abdomen and pelvis CT, which shows a nonobstructing bilateral renal calculi, renal cysts, mild dilatation of common bile duct. No other acute process noted. There is a venogram done on admission , which showed incompletely occlusive thrombus, right femoral vein. ASSESSMENT: 1. Chronic obstructive pulmonary disease. 2. Recurrent urinary tract infections. 3. Mobility impairment. 4. Deep vein thrombosis, right lower extremity 5. New onset of fever. 6. Chronic low abdominal tenderness. 7. Neutrophilia, which has improved since admission. DISCUSSION: The urinalysis argues against urinary tract infection. She does not have evidence of obstruction, so I believe that we can probably rule out urinary tract infection as the culprit here. She does have this deep vein thrombosis in the right lower extremity, and the possibility of pulmonary embolism needs to be considered, particularly in view of the respiratory symptoms that she has had for the past few days, which has been treated as pneumonia with doxycycline. Pulmonary embolism may mimick pneumonia even with fever as part of clinical presentation. If blood cultures remain negative, discontinue antimicrobial therapy. Check respiratory virus PCR. [facility]
[2018-02-19] MEDS: Latanoprost 0.005% Ophth Soln 2.5 ml Bottle EA EYE SCH (21:04)
[2018-02-19] MEDS: Apixaban 2.5 MG TAB PO SCH (21:05)
[2018-02-19] MEDS: Mirtazapine 15 MG TAB PO SCH (21:05)
[2018-02-19] MEDS: Famotidine 20 MG TAB PO SCH (21:05)
[2018-02-19] MEDS ORDERED: hydrALAZINE 20 MG/ML VIAL SLOW IVP PRN (22:57)
[2018-02-19] MEDS ORDERED: hydrALAZINE 20 MG/ML VIAL SLOW IVP SCH (23:00)
[2018-02-20] MEDS: Acetaminophen 325 MG TAB PO PRN ×2 (00:05→20:12)
[2018-02-20 04:31] LABS: #Eosinphils 0.3 thou/uL (0.0-0.7); #Neutrophils 4.5 thou/uL (1.40-6.50); %Basophils 0.1 % (0.0-1.0); %Eosinophils 3.5 % (0.0-10.0); %Lymphocytes 25.8 % (21.0-51.0); %Monocytes 12.7 % (0.0-10.0); %Neutrophils 57.8 % (42.0-75.0); Hemoglobin 8.8 g/dL (12.0-16.0); Mean Corpuscular Hemoglobin 34.4 pg (27.0-31.0); Mean Platelet Volume 6.2 fL (7.4-10.4); Platelet Count 307 thou/uL (130-400); RBC Distribution Width 12.1 % (11.5-14.5); Red Blood Cell (RBC) Count 2.55 mill/uL (4.20-5.40); White Blood Cell (WBC) Count 7.7 thou/uL (4.8-10.8)
[2018-02-20 04:50] LABS: Anion Gap 12 mmol/L (10-20); BUN (Urea Nitrogen) 25 mg/dL (9.8-20.1); Calc. Creatinine Clearance 34 mL/min (70-130); Calcium 9.2 mg/dL (7.8-10.44); Carbon Dioxide 25 mmol/L (23-31); Chloride 104 mmol/L (98-107); Estimated GFR-MDRD 56; Glucose 97 mg/dL (83-110); Potassium 4.1 mmol/L (3.5-5.1); Sodium 137 mmol/L (136-145)
[2018-02-20] MEDS: Levothyroxine Sodium 50 MCG TAB PO SCH (05:38)
[2018-02-20] MEDS: Mometasone/Formoterol 120 PUFF INHALER INH SCH ×2 (07:15→19:06)
[2018-02-20] MEDS: Carvedilol 6.25 MG TAB PO SCH ×2 (10:05→20:05)
[2018-02-20] MEDS: Apixaban 2.5 MG TAB PO SCH ×2 (10:05→20:04)
[2018-02-20] MEDS: busPIRone HCl 10 MG TAB PO SCH ×2 (10:05→20:08)
[2018-02-20] MEDS: Polyethylene Glycol 3350 17 GM Packet PO SCH (10:33)
[2018-02-20] MEDS: Docusate 100 MG CAP PO SCH ×2 (10:33→20:05)
--- NOTE | 2018-02-20 15:00 | PDOC.PN ---
- Subjective Encounter Start Date: 02/20/18 Encounter Start Time: 11:15 Subjective: didn't sleep last night, no sob or abd pain or diarrhea - Objective Resuscitation Status: Resuscitation Status DNR:Do Not Resuscitate MAR Reviewed: Yes Vital Signs & Weight: Vital Signs (12 hours) Temp Pulse Resp BP BP Pulse Ox 02/20/18 11:57 174/70 H 02/20/18 10:05 177/88 H 02/20/18 08:00 98.4 F 87 16 179/67 H 97 02/20/18 03:30 97.7 F 93 16 138/68 94 L Weight Weight 115 lb 1.6 oz I&O: 02/19/18 02/20/18 02/21/18 06:59 06:59 06:59 Intake Total 2290 1240 Output Total 1975 2650 Balance 315 -1410 Result Diagrams: 02/20/18 03:57 02/20/18 03:57 Phys Exam - Physical Examination HEENT: PERRLA, moist MMs Neck: no JVD, supple Respiratory: no wheezing, no rales Cardiovascular: RRR, no significant murmur Gastrointestinal: soft, non-tender, positive bowel sounds Musculoskeletal: no edema, pulses present Neurological: non-focal, moves all 4 limbs Psychiatric: normal affect, A&O x 3 Dx/Plan (1) Sepsis Code(s): A41.9 - SEPSIS, UNSPECIFIED ORGANISM Status: Acute Qualifiers: Sepsis type: sepsis due to unspecified organism Qualified Code(s): A41.9 - Sepsis, unspecified organism (2) CHF (congestive heart failure) Code(s): I50.9 - HEART FAILURE, UNSPECIFIED Status: Chronic Qualifiers: Qualified Code(s): I50.31 - Acute diastolic (congestive) heart failure Comment: diastolic ef 50-55% (3) Constipation Code(s): K59.00 - CONSTIPATION, UNSPECIFIED Status: Resolved Qualifiers: Constipation type: unspecified constipation type Qualified Code(s): K59.00 - Constipation, unspecified (4) Alzheimer's dementia Code(s): G30.9 - ALZHEIMER'S DISEASE, UNSPECIFIED Status: Chronic Qualifiers: Alzheimer's disease onset: unspecified onset Dementia behavioral disturbance: without behavioral disturbance Qualified Code(s): G30.9 - Alzheimer's disease, unspecified; F02.80 - Dementia in other diseases classified elsewhere without behavioral disturbance (5) Anxiety and depression Code(s): F41.9 - ANXIETY DISORDER, UNSPECIFIED; F32.9 - MAJOR DEPRESSIVE DISORDER, SINGLE EPISODE, UNSPECIFIED Status: Chronic (6) COPD (chronic obstructive pulmonary disease) Status: Chronic Qualifiers: COPD type: chronic bronchitis Chronic bronchitis type: unspecified Qualified Code(s): J42 - Unspecified chronic bronchitis Comment: (7) GERD (gastroesophageal reflux disease) Code(s): K21.9 - GASTRO-ESOPHAGEAL REFLUX DISEASE WITHOUT ESOPHAGITIS Status: Chronic Qualifiers: Esophagitis presence: esophagitis presence not specified Qualified Code(s) : K21.9 - Gastro-esophageal reflux disease without esophagitis (8) Hypertension Code(s): I10 - ESSENTIAL (PRIMARY) HYPERTENSION Status: Chronic Qualifiers: Hypertension type: essential hypertension Qualified Code(s): I10 - Essential (primary) hypertension (9) Hypothyroidism Code(s): E03.9 - HYPOTHYROIDISM, UNSPECIFIED Status: Chronic Qualifiers: Hypothyroidism type: unspecified Qualified Code(s): E03.9 - Hypothyroidism , unspecified (10) DVT (deep venous thrombosis) Code(s): I82.409 - ACUTE EMBOLISM AND THOMBOS UNSP DEEP VN UNSP LOWER EXTREMITY Status: Acute Qualifiers: DVT location: lower extremity Affected thrombotic vein of extremity: femoral Chronicity: acute Laterality: right Qualified Code(s): I82.411 - Acute embolism and thrombosis of right femoral vein Comment: nonocclusive - Plan on eliquis, no fever last 24hrs, wbc is normal -: dc neil -: on levaquin, will dc in am -: dc plan in am -: to amb as tolerated * . Review of Systems - Medications/Allergies Allergies/Adverse Reactions: Allergies Allergy/AdvReac Type Severity Reaction Status Date / Time adhesive Allergy Verified 02/17/18 17:23 aspirin Allergy Verified 09/04/16 03:52 codeine Allergy Verified 09/04/16 03:52 doxycycline Allergy Verified 09/04/16 03:52 erythromycin base Allergy Verified 09/04/16 03:52 [Erythromycin Base] Latex, Natural Rubber Allergy Verified 09/04/16 03:52 montelukast Allergy Verified 09/04/16 03:52 Penicillins Allergy Verified 02/17/18 17:24 Sulfa (Sulfonamide Allergy Verified 09/04/16 03:52 Antibiotics) Medications: Current Medications Acetaminophen (Tylenol) 650 mg PO Q4H PRN PRN Reason: Headache/Fever or Pain Last Admin: 02/20/18 00:05 Dose: 650 mg Albuterol Sulfate (Proventil Hfa) 2 puff INH Q6HR PRN PRN Reason: SOB &/or Wheezing Apixaban (Eliquis) 2.5 mg PO BID [facility] Last Admin: 02/20/18 10:05 Dose: 2.5 mg Buspirone HCl (Buspar) 15 mg PO BID [facility] Last Admin: 02/20/18 10:05 Dose: 15 mg Carvedilol (Coreg) 6.25 mg PO BID [facility] Last Admin: 02/20/18 10:05 Dose: 6.25 mg Docusate Sodium (Colace) 100 mg PO BID [facility] Last Admin: 02/20/18 10:33 Dose: Not Given Famotidine (Pepcid) 20 mg PO 2100 [facility] Last Admin: 02/19/18 21:05 Dose: 20 mg Guaifenesin/Dextromethorphan (Robitussin Dm) 15 ml PO Q4H PRN PRN Reason: Cough Last Admin: 02/18/18 20:59 Dose: 15 ml Hydralazine HCl (Apresoline) 10 mg SLOW IVP Q6H PRN PRN Reason: SBP > 180 Levofloxacin 500 mg/ Device 100 mls @ 100 mls/hr IVPB Q2D@1700 [facility] Last Admin: 02/19/18 18:22 Dose: 100 mls Latanoprost (Xalatan 0.005% [facility]) 1 drop EA EYE [facility] Last Admin: 02/19/18 21:04 Dose: 1 drop Levothyroxine Sodium (Synthroid) 50 mcg PO 0600 [facility] Last Admin: 02/20/18 05:38 Dose: 50 mcg Mirtazapine (Remeron) 15 mg PO [facility] Last Admin: 02/19/18 21:05 Dose: 15 mg Mometasone Furoate/Formoterol Fumar (Dulera 200 Mcg/5 Mcg Inhaler) 2 puff INH BID-RT [facility] Last Admin: 02/20/18 07:15 Dose: 2 puff Ondansetron HCl (Zofran) 4 mg IVP Q6H PRN PRN Reason: Nausea/Vomiting Ondansetron HCl (Zofran Odt) 4 mg PO Q6H PRN PRN Reason: Nausea/Vomiting Ospemifene [Osphena] (60 Mg) 0 each PO QAM-WM [facility] Polyethylene Glycol (Miralax) 17 gm PO DAILY [facility] Last Admin: 02/20/18 10:33 Dose: Not Given Quetiapine Fumarate (Seroquel) 50 mg PO HS [facility] Last Admin: 02/19/18 21:05 Dose: 50 mg
--- NOTE | 2018-02-20 16:48 | PQF ---
CLINICAL DOCUMENTATION IMPROVEMENT CLARIFICATION FORM: ICD-10 Updated PLEASE DO AN ADDENDUM TO THE PROGRESS NOTE WITH ANY DOCUMENTATION UPDATES OR ADDITIONS AND CARRY THROUGH TO DC SUMMARY. THANK YOU. DATE: 02/20/18 ATTN: Dr. Warner Please exercise your independent, professional judgment in responding to the clarification form. Clinical indicators are provided on the bottom of this form for your review Please check appropriate box(s): Conflicting documentation was noted in the Medical Record, please clarify if patient is being treated/monitored for: [ x ] Chronic Diastolic CHF [ ] Acute Diastolic CHF [ ] Other diagnosis [ ] Unable to determine In addition, please specify: Present on Admission (POA): [ ] Yes [ ] No [ ] Unable to determine For continuity of documentation, please document condition throughout progress notes and discharge summary. Thank You. CLINICAL INDICATORS - SIGNS / SYMPTOMS/ LABS H&P: MILD PERIPHERAL EDEMA. CHEST XRAY DONE SHOWS NO ACUTE INFILTRATE PN 02/18-02/20: CHF (CONGESTIVE HEART FAILURE) STATUS: CHRONIC. ACUTE DIASTOLIC (CONGESTIVE) HEART FAILURE RISKS H&P 02/17: HX OF DIASTOLIC DYSFUNCTION WITH EF 50-55%. HX HTN, COPD. ADMITTED TO MEDICAL FLOOR FOR SEPSIS FROM UNKNOWN SOURCE. TREATMENT: CPOE 02/17: COREG 6.25 MG PO BID Thank you, Cher (This form is maintained as a part of the permanent medical record) 2014 [employer], [place] All Rights Reserved Cher Mendoza RN, BSN [email or web address] Office: [phone] [facility]
[2018-02-20] MEDS: Famotidine 20 MG TAB PO SCH (20:05)
[2018-02-20] MEDS: Mirtazapine 15 MG TAB PO SCH (20:05)
[2018-02-20] MEDS: Latanoprost 0.005% Ophth Soln 2.5 ml Bottle EA EYE SCH (20:08)
[2018-02-21 04:24] LABS: #Basophils 0.1 thou/uL (0.0-0.2); #Eosinphils 0.2 thou/uL (0.0-0.7); #Lymphocytes 1.9 thou/uL (1.20-3.40); #Monocytes 0.9 thou/uL (0.11-0.59); #Neutrophils 4.3 thou/uL (1.40-6.50); %Basophils 0.8 % (0.0-1.0); %Eosinophils 2.7 % (0.0-10.0); %Lymphocytes 26.3 % (21.0-51.0); %Monocytes 11.8 % (0.0-10.0); %Neutrophils 58.4 % (42.0-75.0); Hemoglobin 9.1 g/dL (12.0-16.0); Mean Corpuscular HGB CONC 33.5 g/dL (32.0-36.0); Mean Platelet Volume 6.2 fL (7.4-10.4); Platelet Count 326 thou/uL (130-400); RBC Distribution Width 12.1 % (11.5-14.5); Red Blood Cell (RBC) Count 2.68 mill/uL (4.20-5.40); White Blood Cell (WBC) Count 7.3 thou/uL (4.8-10.8)
[2018-02-21 04:47] LABS: Anion Gap 13 mmol/L (10-20); BUN (Urea Nitrogen) 26 mg/dL (9.8-20.1); Calc. Creatinine Clearance 29 mL/min (70-130); Carbon Dioxide 25 mmol/L (23-31); Chloride 103 mmol/L (98-107); Estimated GFR-MDRD 46; Glucose 99 mg/dL (83-110); Potassium 4.6 mmol/L (3.5-5.1); Sodium 136 mmol/L (136-145)
[2018-02-21] MEDS: Levothyroxine Sodium 50 MCG TAB PO SCH (05:29)
[2018-02-21] MEDS: Mometasone/Formoterol 120 PUFF INHALER INH SCH (07:11)
[2018-02-21] MEDS: Carvedilol 6.25 MG TAB PO SCH (08:54)
[2018-02-21] MEDS: busPIRone HCl 10 MG TAB PO SCH (08:54)
[2018-02-21] MEDS: Docusate 100 MG CAP PO SCH (08:55)
[2018-02-21] MEDS: Polyethylene Glycol 3350 17 GM Packet PO SCH (08:55)
[2018-02-21] MEDS: Apixaban 2.5 MG TAB PO SCH (08:55)
[2018-02-21 10:58] VITALS: BP 121/57; TEMP 98.5
--- NOTE | 2018-02-21 11:39 | PDOC.PN ---
- Subjective Encounter Start Date: 02/21/18 Encounter Start Time: 08:30 Subjective: awake, feels good, no sob or abd pain -: no leg pain or diarrhea - Objective Resuscitation Status: Resuscitation Status DNR:Do Not Resuscitate MAR Reviewed: Yes Vital Signs & Weight: Vital Signs (12 hours) Temp Pulse Resp BP BP BP Pulse Ox 02/21/18 10:57 98.5 F 83 20 121/57 L 94 L 02/21/18 08:54 174/74 H 02/21/18 08:00 96 02/21/18 07:28 98.0 F 101 H 18 175/74 H 96 02/21/18 07:11 83 16 95 Weight Weight 115 lb 1.6 oz I&O: 02/20/18 02/21/18 02/22/18 06:59 06:59 06:59 Intake Total 1240 900 Output Total 2650 1095 Balance -2760 195 Result Diagrams: 02/21/18 03:49 02/21/18 03:49 Phys Exam - Physical Examination HEENT: PERRLA, moist MMs Neck: no JVD, supple Respiratory: no wheezing, no rales Cardiovascular: RRR, no significant murmur Gastrointestinal: soft, non-tender, positive bowel sounds Musculoskeletal: no edema, pulses present Neurological: non-focal, moves all 4 limbs Psychiatric: normal affect, A&O x 3 Dx/Plan (1) Sepsis Code(s): A41.9 - SEPSIS, UNSPECIFIED ORGANISM Status: Acute Qualifiers: Sepsis type: sepsis due to unspecified organism Qualified Code(s): A41.9 - Sepsis, unspecified organism (2) CHF (congestive heart failure) Code(s): I50.9 - HEART FAILURE, UNSPECIFIED Status: Chronic Qualifiers: Qualified Code(s): I50.31 - Acute diastolic (congestive) heart failure Comment: diastolic ef 50-55%, class 2 (3) Constipation Code(s): K59.00 - CONSTIPATION, UNSPECIFIED Status: Resolved Qualifiers: Constipation type: unspecified constipation type Qualified Code(s): K59.00 - Constipation, unspecified (4) Alzheimer's dementia Code(s): G30.9 - ALZHEIMER'S DISEASE, UNSPECIFIED Status: Chronic Qualifiers: Alzheimer's disease onset: unspecified onset Dementia behavioral disturbance: without behavioral disturbance Qualified Code(s): G30.9 - Alzheimer's disease, unspecified; F02.80 - Dementia in other diseases classified elsewhere without behavioral disturbance (5) Anxiety and depression Code(s): F41.9 - ANXIETY DISORDER, UNSPECIFIED; F32.9 - MAJOR DEPRESSIVE DISORDER, SINGLE EPISODE, UNSPECIFIED Status: Chronic (6) COPD (chronic obstructive pulmonary disease) Status: Chronic Qualifiers: COPD type: chronic bronchitis Chronic bronchitis type: unspecified Qualified Code(s): J42 - Unspecified chronic bronchitis Comment: (7) GERD (gastroesophageal reflux disease) Code(s): K21.9 - GASTRO-ESOPHAGEAL REFLUX DISEASE WITHOUT ESOPHAGITIS Status: Chronic Qualifiers: Esophagitis presence: esophagitis presence not specified Qualified Code(s) : K21.9 - Gastro-esophageal reflux disease without esophagitis (8) Hypertension Code(s): I10 - ESSENTIAL (PRIMARY) HYPERTENSION Status: Chronic Qualifiers: Hypertension type: essential hypertension Qualified Code(s): I10 - Essential (primary) hypertension (9) Hypothyroidism Code(s): E03.9 - HYPOTHYROIDISM, UNSPECIFIED Status: Chronic Qualifiers: Hypothyroidism type: unspecified Qualified Code(s): E03.9 - Hypothyroidism , unspecified (10) DVT (deep venous thrombosis) Code(s): I82.409 - ACUTE EMBOLISM AND THOMBOS UNSP DEEP VN UNSP LOWER EXTREMITY Status: Acute Qualifiers: DVT location: lower extremity Affected thrombotic vein of extremity: femoral Chronicity: acute Laterality: right Qualified Code(s): I82.411 - Acute embolism and thrombosis of right femoral vein Comment: nonocclusive - Plan on eliquis based on age -: hemostable -: dc pt home -: d/w daughter over phone * .
--- NOTE | 2018-02-22 01:26 | DIS ---
DATE OF ADMISSION: 02/17/2018 DATE OF DISCHARGE: 02/21/2018 DISCHARGE DISPOSITION: To home. PRIMARY DISCHARGE DIAGNOSES: Sepsis, right lower extremity nonocclusive deep venous thrombosis, hypothyroidism, hypertension, chronic obstructive pulmonary disease, anxiety, depression, gastroesophageal reflux disease, dementia, congestive heart failure with diastolic dysfunction an ejection fraction of 50%- 55%, constipation. PROCEDURES DONE DURING HOSPITALIZATION: CTA of the abdomen and pelvis with IV contrast done showed nonobstructing bilateral renal calculi, multiple bilateral renal cysts were seen. Mild dilatation of common bile duct with prior history of cholecystectomy, no evidence of acute process in the abdomen or pelvis. There is a small right fat-containing inguinal hernia seen. Ultrasound venous Doppler of lower extremities done showed incompletely occlusive thrombus in the right femoral vein. Chest x-ray done showed chronic parenchymal changes bilaterally. No acute infiltrate was seen. Blood cultures x2 no growth. Urine culture no growth. Had a white count of 20 on the day of admission with discharge numbers of 7, H&H 9 and 27, platelet count 326. BUN 26, creatinine 1.1. Albumin is 3.8. DISCHARGE MEDICATIONS: Patient to continue Eliquis 2.5 mg p.o. twice daily, vitamin C 500 mg p.o. daily, albuterol inhaler q.6 hourly p.r.n., Symbicort inhaler 2 puffs twice daily, buspirone 15 mg twice daily, estradiol daily vaginal cream, ferrous sulfate 325 mg p.o. twice daily, Flovent inhaler daily, latanoprost eyedrops as before, levothyroxine 50 mcg p.o. daily, lisinopril 10 mg p.o. daily, meloxicam 15 mg p.o. daily, Myrbetriq 50 mg p.o. daily extended release, Remeron 15 mg p.o. at bedtime, Osphena 60 mg p.o. daily, MiraLax 17 grams daily, Colace 100 mg twice daily, Seroquel 50 mg p.o. at bedtime, Coreg 6.25 mg twice daily, Lasix 20 mg daily, Levaquin 250 mg daily for another 4 days. ALLERGIES: Patient is allergic to ADHESIVES, ASPIRIN, CODEINE, DOXYCYCLINE, ERYTHROMYCIN, PENICILLIN, SULFA, SINGULAIR, and LATEX. INPATIENT CONSULTS: Dr. Castañeda for infectious disease. DISCHARGE PLAN: Patient to follow up with primary care physician in 1 week. BRIEF COURSE DURING HOSPITALIZATION: Patient initially was brought to emergency room for complaints of lower quadrant abdominal pain. She also had trouble passing urine and had to go multiple times. She was also constipated. Her initial white count was 20 and she was essentially admitted to medical floor for sepsis from unknown source. Patient had multiple workups done and was found to have had nonocclusive thrombus in right lower extremity. She was placed on Lovenox and later switched over to Eliquis age-based dosing for DVT. Her fever has subsided. Patient's white count also is back to normal at 7.3. Patient likely had ntphithb-oh-xsstit dehydration. Multiple workups done including blood culture and urine cultures have not grown any organism or a source for infection as such. I have discussed her findings with her daughter, Ms. Minor and the need for blood thinners. Blood thinner safety including fall precautions were discussed with Ms. Minor the patient's daughter and patient Ms. Pineda as well. She needs to follow up with primary care physician in 1 week. Please see a [id number] day [facility]. MEGAND
== END 2018-02-21 12:58 | disposition home or self-care (01) | DRG 872 ==
LOC: ERS 10:49 → T4-A 17:12
PROVIDERS: ADMIT Internal Medicine; ATTEND Internal Medicine
DX: A41.9 Sepsis, unspecified organism (principal); I82.411 Acute embolism and thrombosis of right femoral vein; I50.32 Chronic diastolic (congestive) heart failure; E03.9 Hypothyroidism, unspecified; J44.9 Chronic obstructive pulmonary disease, unspecified; F41.9 Anxiety disorder, unspecified; F32.9 Major depressive disorder, single episode, unspecified; K21.9 Gastro-esophageal reflux disease without esophagitis; F03.90 Unspecified dementia, unspecified severity, without behavioral disturbance, psychotic disturbance, mood disturbance, and anxiety; I11.0 Hypertensive heart disease with heart failure; K59.00 Constipation, unspecified; Z88.0 Allergy status to penicillin; Z88.2 Allergy status to sulfonamides; E86.0 Dehydration; Z66 Do not resuscitate; G30.9 Alzheimer's disease, unspecified; F02.80 Dementia in other diseases classified elsewhere, unspecified severity, without behavioral disturbance, psychotic disturbance, mood disturbance, and anxiety
CPT/HCPCS: 36415; 51702; 71045; 74177; 80048; 80053; 81003; 81015; 83605; 85025; 85610; 85730; 87040; 87070; 87086; 87205; 93005; 93970; 96365; 96367; G8978-GP-CI; G8979-GP-CI; G8980-GP-CI; G8987-GO-CI; G8988-GO-CI; G8989-GO-CI; J0360; J0696; J1580; J1650; J1956; J2405; J3370; J7050

== ENCOUNTER 2018-03-09 16:45 | Inpatient (IN) | payer MEDICARE, BC ==
[2018-03-09 17:28] LABS: Hemoglobin 5.7 g/dL (12.0-16.0); Mean Corpuscular HGB CONC 32.5 g/dL (32.0-36.0); Mean Corpuscular Hemoglobin 34.8 pg (27.0-31.0); Mean Platelet Volume 5.8 fL (7.4-10.4); Platelet Count 407 thou/uL (130-400); RBC Distribution Width 16.2 % (11.5-14.5); Red Blood Cell (RBC) Count 1.65 mill/uL (4.20-5.40); White Blood Cell (WBC) Count 9.2 thou/uL (4.8-10.8)
[2018-03-09 17:39] LABS: ALT (SGPT) 14 U/L (8-55); AST (SGOT) 26 U/L (5-34); Albumin 3.8 g/dL (3.4-4.8); Alkaline Phosphatase 82 U/L (40-150); Anion Gap 14 mmol/L (10-20); BUN (Urea Nitrogen) 43 mg/dL (9.8-20.1); Bilirubin, Total 0.3 mg/dL (0.2-1.2); Calc. Creatinine Clearance 0 mL/min (70-130); Calcium 8.8 mg/dL (7.8-10.44); Carbon Dioxide 20 mmol/L (23-31); Chloride 106 mmol/L (98-107); Estimated GFR-MDRD 32; Glucose 108 mg/dL (83-110); Potassium 4.5 mmol/L (3.5-5.1); Protein, Total 6.8 g/dL (6.0-8.3); Sodium 135 mmol/L (136-145)
[2018-03-09 17:45] LABS: #Eosinphils 0.1 thou/uL (0.0-0.7); #Lymphocytes 1.4 thou/uL (1.20-3.40); #Monocytes 0.7 thou/uL (0.11-0.59); %Basophils 0.2 % (0.0-1.0); %Eosinophils 1.1 % (0.0-10.0); %Lymphocytes 14.9 % (21.0-51.0); %Monocytes 7.6 % (0.0-10.0); %Neutrophils 76.3 % (42.0-75.0); Anisocytosis SLIGHT = 6-15 cells (100X) (0-5/hpf); Band 3 % (5-11); Eosinophils 1 % (0-10); Lymphocytes 13 % (21-51); MDiff Complete? YES; Macrocytosis SLIGHT = 6-15 cells (100X) (0-5/hpf); Monocytes 7 % (0-10); Neutrophil 76 % (42-75); PLT Morphology Comment Appears Increased; Poikilocytosis SLIGHT = 6-15 cells (100X) (0-5/hpf); Polychromasia SLIGHT = 2-3 cells (100X) (0-2/hpf)
[2018-03-09 18:18] LABS: INR-International Normal Ratio 1.3; PTT 32.1 SEC (22.9-36.1); Prothrombin Time 16.1 SEC (12.0-14.7)
[2018-03-09 18:30] LABS: Troponin I Less than 0.010 ng/mL (< 0.028)
[2018-03-09 18:40] LABS: Bilirubin Negative (Negative); Blood, Urine Negative (Negative); Clarity CLOUDY (Clear); Glucose, Urine (Dipstick) Negative (Negative); Leukocyte Moderate (Negative); Nitrite Negative (Negative); Protein, Urine (Dipstick) Negative (Neg-Trace); Specific Gravity, Urine 1.009 (1.002-1.036); Urobilinogen 0.2 mg/dL (0.2-1.0)
[2018-03-09 18:43] LABS: Bacteria/HPF 4+ HPF (None Seen); Hyaline Casts/LPF 4-6 HYALINE CAST LPF (0-3 Hyaline); Pathc Cast-AUWi Flag 0.58 (0-2.49); RBC/HPF 0-3 HPF (0-3); Squamous Epithelial None Seen HPF (0-3); WBC/HPF 21-50 HPF (0-3)
[2018-03-09] MEDS ORDERED: diphenhydrAMINE 50 MG/ML VIAL ONE (20:33)
[2018-03-09] MEDS ORDERED: methylPREDNISolone Sod Succ/PF 125 MG/2 ML VIAL ONE (20:33)
--- NOTE | 2018-03-09 20:44 | CT ---
CT ABDOMEN WITH CONTRAST CT PELVIS WITH CONTRAST: DATE: 03/09/18 HISTORY: 87-year-old female with fever, chills, and urinary retention. COMPARISON: 02/17/18. TECHNIQUE: IV injection of iodinated contrast media: Isovue Oral contrast media: not administered. FINDINGS: Multiple bilateral renal cysts, including large ones on the left. Several bilateral small renal calcu li. No hydronephrosis. Hepatic margins are mildly nodular, which may or may not represent cirrhosis. No portal vein thrombosis. No focal hepatic neoplasm or abscess. Heavy atherosclerotic calcification without aneurysm, of abdominal aorta. Pelvic relaxation. Thin, normal miles of bladder. Absent uterus . No abscess, colonic diverticulitis, small bowel dilation, pneumoperitoneum, or ascites. The appendi x is difficult to identify and to separate from the multiple adjacent small caliber small bowel loops in the right lower quadrant adjacent to the cecum. Absent gallbladder. Moderate dilation of common d uct, presumably due to the status post cholecystectomy. No acute pancreatitis or pancreatic mass. Adr enals and spleen normal. Lung bases are clear of consolidation and pleural effusion. No major interva l change. IMPRESSION: 1. No acute findings. 2. Multiple bilateral renal cysts. 3. Bilateral nephrolithiasis. 4. Status post cholecystectomy and hysterectomy. 5. Pelvic relaxation. EMILIANO Meraz POS: KIMANI
[2018-03-09 21:05] LABS: #Eosinphils 0.1 thou/uL (0.0-0.7); #Lymphocytes 1.7 thou/uL (1.20-3.40); #Monocytes 0.9 thou/uL (0.11-0.59); #Neutrophils 7.8 thou/uL (1.40-6.50); %Basophils 0.3 % (0.0-1.0); %Eosinophils 0.8 % (0.0-10.0); %Lymphocytes 16.1 % (21.0-51.0); %Monocytes 8.5 % (0.0-10.0); %Neutrophils 74.3 % (42.0-75.0); Hemoglobin 8.3 g/dL (12.0-16.0); Mean Corpuscular HGB CONC 33.6 g/dL (32.0-36.0); Mean Corpuscular Hemoglobin 32.9 pg (27.0-31.0); Mean Platelet Volume 6.1 fL (7.4-10.4); Platelet Count 364 thou/uL (130-400); RBC Distribution Width 19.9 % (11.5-14.5); Red Blood Cell (RBC) Count 2.53 mill/uL (4.20-5.40); White Blood Cell (WBC) Count 10.6 thou/uL (4.8-10.8)
[2018-03-09 21:21] LABS: Anion Gap 16 mmol/L (10-20); BUN (Urea Nitrogen) 40 mg/dL (9.8-20.1); Calc. Creatinine Clearance 0 mL/min (70-130); Calcium 8.9 mg/dL (7.8-10.44); Carbon Dioxide 19 mmol/L (23-31); Chloride 103 mmol/L (98-107); Estimated GFR-MDRD 34; Glucose 96 mg/dL (83-110); Potassium 4.4 mmol/L (3.5-5.1); Sodium 134 mmol/L (136-145)
[2018-03-09] MEDS ORDERED: Ondansetron HCl/PF 4 MG/2 ML Vial IVP PRN (21:43)
[2018-03-09 22:30] VITALS: BMI 19.2
--- NOTE | 2018-03-09 23:36 | ULT ---
ULTRASOUND WITH DOPPLER DUPLEX VENOUS LOWER EXTREMITIES BILATERAL: 03/09/18 HISTORY: Bilateral lower extremity pain in 87-year-old female. TECHNIQUE: Color flow Doppler, spectral waveform analysis of pulsed Doppler, and adan-scale imaging with saroj jimmy and augmentation, were used to evaluate the bilateral common femoral, femoral, popliteal, security investigator ior tibial, and superficial femoral, veins; and the proximal portions of the profunda femoral and gre ater saphenous, veins. FINDINGS: There is normal compressibility, demonstration of blood flow by color Doppler and pulsed Doppler, and response to augmentation, in all interrogated veins. IMPRESSION: Negative. No deep vein thrombosis in the bilateral lower extremities. jn[] POS: KIMANI
[2018-03-10] MEDS: Acetaminophen 325 MG TAB PO PRN (01:00)
[2018-03-10 05:00] LABS: Anion Gap 13 mmol/L (10-20); BUN (Urea Nitrogen) 41 mg/dL (9.8-20.1); Calc. Creatinine Clearance 22 mL/min (70-130); Calcium 8.9 mg/dL (7.8-10.44); Carbon Dioxide 21 mmol/L (23-31); Chloride 104 mmol/L (98-107); Estimated GFR-MDRD 33; Glucose 154 mg/dL (83-110); Potassium 4.5 mmol/L (3.5-5.1); Sodium 133 mmol/L (136-145)
[2018-03-10] MEDS ORDERED: PROVENTIL INHALER 6.7 G (200 INHALATIONS) INH PRN (05:44)
[2018-03-10] MEDS ORDERED: Azelastine 137 MCG/Spray 30 ML NS PRN (05:44)
[2018-03-10] MEDS: Sodium Chloride 0.9% 1,000 ML IV SCH ×2 (05:57→15:27)
[2018-03-10] MEDS ORDERED: Levothyroxine Sodium 50 MCG TAB PO SCH (06:15)
[2018-03-10] MEDS: Mometasone/Formoterol 120 PUFF INHALER INH SCH ×2 (06:24→18:59)
[2018-03-10 07:16] LABS: #Monocytes 0.1 thou/uL (0.11-0.59); #Neutrophils 7.3 thou/uL (1.40-6.50); %Basophils 0.2 % (0.0-1.0); %Eosinophils 0.3 % (0.0-10.0); %Lymphocytes 11.5 % (21.0-51.0); %Monocytes 0.6 % (0.0-10.0); %Neutrophils 87.5 % (42.0-75.0); Anisocytosis SLIGHT = 6-15 cells (100X) (0-5/hpf); MDiff Complete? YES; Mean Corpuscular Hemoglobin 33.2 pg (27.0-31.0); Mean Corpuscular Volume 97.8 fL (78.0-98.0); Platelet Count 363 thou/uL (130-400); Polychromasia SLIGHT = 2-3 cells (100X) (0-2/hpf); RBC Distribution Width 20.6 % (11.5-14.5); White Blood Cell (WBC) Count 8.4 thou/uL (4.8-10.8)
--- NOTE | 2018-03-10 08:18 | HP ---
TIME OF EVALUATION: 7:40 p.m. PRIMARY CARE PHYSICIAN: Sukhwinder Dawson MD CODE STATUS: DNR/DNI as stated by the patient, thought it was a witnessed CHIEF COMPLAINT: Severe weakness. HISTORY OF PRESENT ILLNESS: This is an 87-year-old female patient with a past medical history of hyp othyroidism, hypertension, chronic UTIs, came to the hospital after having generalized weakness, that was severe, worsening with exertion, patient had been started on Eliquis in previous admissions due to presence of DVT in the lower extremities. The patient had been doing well; however, due to worsen ing weakness, patient decided to come to the hospital. She was found to have hemoglobin of 5. REVIEW OF SYSTEMS: Constitutional: No fever or chills. The patient reported generalized weakness. Respiratory: No cough, sputum production, or shortness of breath. Cardiovascular: No chest pain o r palpitation. Gastrointestinal: No nausea, vomiting, diarrhea, or abdominal pain. Central Nervous Systems: No dizziness, headache, or feeling lightheaded. Genitourinary: No burning on urination. Extremities: No leg swelling. All other systems were reviewed and are negative except for the find ings mentioned above. PAST MEDICAL HISTORY: Already mentioned in the HPI. PAST SURGICAL HISTORY: Appendectomy, cholecystectomy, hysterectomy. PSYCHIATRIC HISTORY: No previous psych history. SOCIAL HISTORY: Patient drinks socially, denies any drug use. No smoking history. Lives in home wi th family. KNOWN ALLERGIES: ADHESIVES, CODEINE, ERYTHROMYCIN, LATEX, . REPORTED MEDICATIONS: Diazepam, levothyroxine, Tylenol, Coreg, Seroquel, meloxicam, buspirone, lisin opril, Lasix, iron, glucosamine sulfate, Symbicort, azelastine, ProAir HFA, Caltrate 600, aspirin 81, Eliquis 2.5 mg. PHYSICAL EXAMINATION: VITAL SIGNS: On presentation, blood pressure 117/66 with heart rate 98, respiratory rate was 18, tem perature 98.8, pain 8, oxygen saturation 95 on room air. GENERAL APPEARANCE: Patient is alert, oriented, not in any acute distress. Patient is pale. HEENT: Eyes: Normal conjunctivae. Moist oral mucosa, anicteric. RESPIRATORY: Bilateral air entry. No rales, no wheezes. Symmetric expansion. CARDIOVASCULAR: Normal rate, regular rhythm. No murmurs, no gallop. EXTREMITIES: no edema. ABDOMEN: Soft with normal bowel sounds. MUSCULOSKELETAL: Baseline range of motion and strength. No tenderness. Peripheral pulses are prese nt. Capillary refill seems to be intact. SKIN: Warm and intact. Pale, no rash, no redness. NEUROLOGIC: Baseline sensory. No evidence of any new focal weakness. Baseline speech. Cranial ner ves seem to be intact. PSYCHIATRIC: The patient is in good mood. No anxiety. Oriented, optimal judgment. IMAGING: EKG showed normal sinus rhythm at the rate of 92. ST segments are normal. T waves are nor mal. CT abdomen with contrast showed no acute findings. Multiple bilateral renal cysts, bilateral n ephrolithiasis, status post cholecystectomy and hysterectomy, pelvic relaxation. DVT studies were re peated, no deep vein thrombosis of the bilateral lower extremities worsen. LABORATORY DATA: The patient has white count 9.2, the patient's hemoglobin was 5.7 and after the inf usion 8.3, hematocrit 17, went up to 24, platelet count 407. Chemistry: Sodium 135, potassium 4.5, carbon dioxide was 20, anion gap 14, BUN 43 with a creatinine of 1.5. In previous admissions, the pa tient's creatinine was 1.1. The UA was positive for an infection with a white count of 21-50. ASSESSMENT AND PLAN: The patient will be placed in the hospital with following medical problems: 1. Severe anemia, likely secondary for the patient to blood thinners probably have chronic gastroint estinal bleeding. Patient has been stable, receiving blood transfusion. We will stop blood thinners at this point. Deep vein thrombosis studies were repeated and there is no clot present in the study , so we safely to stop the blood thinners at this point. Continue to monitor hemoglobin. We will tr ansfuse as needed. 2. Hyponatremia. This is mild. Sodium 135. No need for any acute intervention at this point. We will monitor. 3. Acute kidney injury. The patient presented with a creatinine of 1.5; in previous admission, it w as 1.1. There is an increase of more than 0.3 mg per deciliter from previous admission. Likely due to hypovolemia due to acute blood loss. We will monitor. Adjust as needed. We will place the patien t on hydration. 4. Hypothyroidism. Continue hormone replacement. 5. Uncontrolled hypertension. Reconcile home meds, take p.r.n. medication might be needed for optim al control. 6. Urinary tract infection. The patient will be placed on antibiotics. Cultures will follow.
[2018-03-10] MEDS ORDERED: Sodium Bicarb 50 MEQ/50 ML Abboject 8.4% SYRINGE ONE (08:33)
[2018-03-10] MEDS ORDERED: Ospemifene [Osphena] 60 MG PO SCH (09:00)
[2018-03-10] MEDS ORDERED: Aspirin 81 mg Enteric Coated Tablet PO SCH (09:00)
[2018-03-10] MEDS ORDERED: Apixaban 2.5 MG TAB PO SCH (09:00)
[2018-03-10] MEDS ORDERED: Meloxicam 15 MG TAB PO SCH (09:00)
[2018-03-10] MEDS: Estradiol 0.01% Vaginal Cream 42.5 gm Tube VAG SCH (09:04)
[2018-03-10] MEDS: busPIRone HCl 5 MG TAB PO SCH ×2 (09:08→20:36)
[2018-03-10] MEDS: Carvedilol 6.25 MG TAB PO SCH ×2 (09:09→20:36)
[2018-03-10] MEDS: Calcium Carbonate + Vit D 1 TAB PO SCH ×2 (09:09→20:36)
[2018-03-10] MEDS: Lisinopril 10 MG TAB PO SCH (09:09)
[2018-03-10] MEDS: Acetaminophen 500 MG TAB PO SCH ×2 (09:09→20:36)
[2018-03-10] MEDS: Ascorbic Acid 500 mg Chewable Tablet PO SCH (09:09)
[2018-03-10] MEDS: Latanoprost 0.005% Ophth Soln 2.5 ml Bottle EA EYE SCH (09:10)
[2018-03-10] MEDS: Ferrous Sulfate 325 MG TAB PO SCH ×2 (09:10→17:27)
[2018-03-10] MEDS: Fluticasone Propionate Nasal Spray 16 gm Bottle NASAL SCH (09:10)
[2018-03-10] MEDS: Polyethylene Glycol 3350 17 GM Packet PO SCH (09:10)
[2018-03-10] MEDS ORDERED: Midazolam HCl 2 mg/2 ml Vial ONE (12:54)
[2018-03-10] MEDS ORDERED: Propofol 1,000 MG/100 ML VIAL IV ONE (13:16)
--- NOTE | 2018-03-10 13:22 | PDOC.PN ---
- Subjective Encounter Start Date: 03/10/18 Encounter Start Time: 13:19 Subjective: feels weak but no new complaints -: denies naay BRB [place].mild abd pain but chronic - Objective Resuscitation Status: Resuscitation Status DNR:Do Not Resuscitate MAR Reviewed: Yes Vital Signs & Weight: Vital Signs (12 hours) Temp Pulse Resp BP Pulse Ox 03/10/18 12:05 97.8 F 101 H 16 138/63 100 03/10/18 07:55 97.2 F L 91 18 130/55 L 95 03/10/18 07:46 98 03/10/18 06:24 99 16 99 03/10/18 04:00 99.3 F 90 18 127/61 98 Weight Weight 115 lb 6.4 oz I&O: 03/09/18 03/10/18 03/11/18 06:59 06:59 06:59 Intake Total 500 Balance 500 Result Diagrams: 03/10/18 04:10 03/10/18 04:10 Additional Labs: Laboratory Tests 02/20/18 02/21/18 02/21/18 03:57 03:49 03:49 Hgb 9.1 L Creatinine 0.95 1.12 H 03/09/18 03/09/18 03/09/18 10:40 10:40 17:08 Hgb 7.8 L 5.7 L* Creatinine 1.35 H 03/09/18 03/09/18 03/09/18 17:08 20:54 20:54 Hgb 8.3 L Creatinine 1.54 H 1.46 H 03/10/18 03/10/18 04:10 04:10 Hgb 8.0 L Creatinine 1.49 H Phys Exam - Physical Examination Constitutional: NAD HEENT: PERRLA, moist MMs, sclera anicteric, oral pharynx no lesions Neck: no nodes, no JVD, supple, full ROM Respiratory: no wheezing, no rales, no rhonchi, clear to auscultation bilateral Cardiovascular: RRR, no significant murmur, no rub Gastrointestinal: soft, non-tender, no distention, positive bowel sounds Musculoskeletal: no edema, pulses present Neurological: non-focal, normal sensation, moves all 4 limbs Psychiatric: normal affect, A&O x 3 Skin: no rash Dx/Plan (1) Anemia due to acute blood loss Code(s): D62 - ACUTE POSTHEMORRHAGIC ANEMIA Status: Acute (2) UTI (urinary tract infection) Status: Acute (3) Generalized weakness Code(s): R53.1 - WEAKNESS Status: Acute (4) CKD (chronic kidney disease) stage 3, GFR 30-59 ml/min Code(s): N18.3 - CHRONIC KIDNEY DISEASE, STAGE 3 (MODERATE) Status: Chronic (5) Alzheimer's dementia Code(s): G30.9 - ALZHEIMER'S DISEASE, UNSPECIFIED Status: Chronic Qualifiers: Alzheimer's disease onset: unspecified onset Dementia behavioral disturbance: without behavioral disturbance Qualified Code(s): G30.9 - Alzheimer's disease, unspecified; F02.80 - Dementia in other diseases classified elsewhere without behavioral disturbance (6) Anxiety and depression Code(s): F41.9 - ANXIETY DISORDER, UNSPECIFIED; F32.9 - MAJOR DEPRESSIVE DISORDER, SINGLE EPISODE, UNSPECIFIED Status: Chronic (7) CHF (congestive heart failure) Code(s): I50.9 - HEART FAILURE, UNSPECIFIED Status: Chronic Qualifiers: Qualified Code(s): I50.31 - Acute diastolic (congestive) heart failure Comment: diastolic ef 50-55%, class 2 (8) COPD (chronic obstructive pulmonary disease) Status: Chronic Qualifiers: COPD type: chronic bronchitis Chronic bronchitis type: unspecified Qualified Code(s): J42 - Unspecified chronic bronchitis Comment: (9) GERD (gastroesophageal reflux disease) Code(s): K21.9 - GASTRO-ESOPHAGEAL REFLUX DISEASE WITHOUT ESOPHAGITIS Status: Chronic Qualifiers: Esophagitis presence: esophagitis presence not specified Qualified Code(s) : K21.9 - Gastro-esophageal reflux disease without esophagitis (10) Glaucoma Code(s): H40.9 - UNSPECIFIED GLAUCOMA Status: Chronic (11) Hypertension Code(s): I10 - ESSENTIAL (PRIMARY) HYPERTENSION Status: Chronic Qualifiers: Hypertension type: essential hypertension Qualified Code(s): I10 - Essential (primary) hypertension (12) Hypothyroidism Code(s): E03.9 - HYPOTHYROIDISM, UNSPECIFIED Status: Chronic Qualifiers: Hypothyroidism type: unspecified Qualified Code(s): E03.9 - Hypothyroidism , unspecified (13) Protein-calorie malnutrition, moderate Code(s): E44.0 - MODERATE PROTEIN-CALORIE MALNUTRITION Status: Chronic - Plan PT/OT, out of bed/ambulate, DVT proph w/SCDs Hold ASA,NSAIDs.Stop eliquis as H/O GIB and No DVT at this time -: monitor H/H -: EGD/Colonoscopy last year.no active bleed this time.suspect chr bleed -: Hemodynamically stable. -: If further drop in H/H-will get GI consult. * .OT.PT. * Empiric ABx,urine cx * am labs Review of Systems - Review of Systems Constitutional: weakness. negative: fever, chills, sweats, malaise, other ENT: negative: Ear Pain, Ear Discharge, Nose Pain, Nose Discharge, Nose Congestion, Mouth Pain, Mouth Swelling, Throat Pain, Throat Swelling, Other Respiratory: negative: Cough, Dry, Shortness of Breath, Hemoptysis, SOB with Excertion, Pleuritic Pain, Sputum, Wheezing Cardiovascular: negative: chest pain, palpitations, orthopnea, paroxysmal nocturnal dyspnea, edema, light headedness, other Gastrointestinal: Abdominal Pain. negative: Nausea, Vomiting, Diarrhea, Constipation, Melena, Hematochezia, Other Genitourinary: negative: Dysuria, Frequency, Incontinence, Hematuria, Retention , Other Musculoskeletal: negative: Neck Pain, Shoulder Pain, Arm Pain, Back Pain, Hand Pain, Leg Pain, Foot Pain, Other Skin: negative: Rash, Lesions, Hoang, Bruising, Other Neurological: negative: Weakness, Numbness, Incoordination, Change in Speech, Confusion, Seizures, Other - Medications/Allergies Allergies/Adverse Reactions: Allergies Allergy/AdvReac Type Severity Reaction Status Date / Time adhesive Allergy Verified 02/17/18 17:23 codeine Allergy Verified 09/04/16 03:52 doxycycline Allergy Verified 09/04/16 03:52 erythromycin base Allergy Verified 09/04/16 03:52 [Erythromycin Base] Latex, Natural Rubber Allergy Verified 09/04/16 03:52 montelukast Allergy Verified 09/04/16 03:52 Penicillins Allergy Verified 02/17/18 17:24 Sulfa (Sulfonamide Allergy Verified 09/04/16 03:52 Antibiotics) Medications: Current Medications Acetaminophen (Tylenol) 650 mg PO Q4H PRN PRN Reason: Headache/Fever or Pain Last Admin: 03/10/18 01:00 Dose: 650 mg Acetaminophen (Tylenol) 1,000 mg PO BID [facility] Last Admin: 03/10/18 09:09 Dose: 1,000 mg Albuterol Sulfate (Proventil Hfa) 2 puff INH Q6H PRN PRN Reason: SOB &/or Wheezing Ascorbic Acid (Vitamin C) 500 mg PO DAILY [facility] Last Admin: 03/10/18 09:09 Dose: 500 mg Azelastine HCl (Azelastine) 0 ml NS PRN PRN PRN Reason: DRAINAGE Buspirone HCl (Buspar) 15 mg PO BID [facility] Last Admin: 03/10/18 09:08 Dose: 15 mg Calcium/Vitamin D (Caltrate 600 + Vit D) 1 tab PO BID [facility] Last Admin: 03/10/18 09:09 Dose: 1 tab Carvedilol (Coreg) 6.25 mg PO BID [facility] Last Admin: 03/10/18 09:09 Dose: 6.25 mg Estradiol (Estrace 0.01% Vaginal Cream) 0 gm VAG DAILY [facility] Last Admin: 03/10/18 09:04 Dose: 1 gm Ferrous Sulfate (Feosol) 325 mg PO BID-[facility] Last Admin: 03/10/18 09:10 Dose: 325 mg Fluticasone Propionate (Flonase Nasal [place]) 0 gm NASAL DAILY [facility] Last Admin: 03/10/18 09:10 Dose: 1 spr Levofloxacin 750 mg/ Device 150 mls @ 100 mls/hr IVPB Q2D [facility] Sodium Chloride (Normal Saline 0.9%) 1,000 mls @ 75 mls/hr IV .[id number] PEND[facility] TO [facility] Last Admin: 03/10/18 05:57 Dose: 1,000 mls Latanoprost (Xalatan 0.005% [facility]) 1 drop EA EYE DAILY [facility] Last Admin: 03/10/18 09:10 Dose: 1 drop Levothyroxine Sodium (Synthroid) 50 mcg PO 0600 [facility] Lisinopril (Zestril) 10 mg PO DAILY [facility] Last Admin: 03/10/18 09:09 Dose: 10 mg Mirabegron (Myrbetriq Er) 50 mg PO DAILY [facility] Last Admin: 03/10/18 09:07 Dose: 50 mg Mirtazapine (Remeron) 15 mg PO HS [facility] Mometasone Furoate/Formoterol Fumar (Dulera 200 Mcg/5 Mcg Inhaler) 2 puff INH BID-RT [facility] Last Admin: 03/10/18 06:24 Dose: 2 puff Ondansetron HCl (Zofran) 4 mg IVP Q6H PRN PRN Reason: Nausea/Vomiting Pantoprazole Sodium (Protonix) 40 mg PO DAILY [facility] Glucosamine Sulfate [Glucosamine Sulfate ] 1,000 Mg 0 each PO BID [facility] Ospemifene [Osphena] (60 Mg) 0 each PO DAILY [facility] Polyethylene Glycol (Miralax) 17 gm PO DAILY [facility] Last Admin: 03/10/18 09:10 Dose: 17 gm Quetiapine Fumarate (Seroquel) 50 mg PO HS [facility] Quetiapine Fumarate (Seroquel) 50 mg PO HS [facility]
[2018-03-10] MEDS: Mirtazapine 15 MG TAB PO SCH (20:37)
[2018-03-10] MEDS: Enoxaparin Sodium 40 MG/0.4 ML SYRINGE SC SCH (20:37)
[2018-03-11 05:40] LABS: Hemoglobin 7.4 g/dL (12.0-16.0); Platelet Count 350 thou/uL (130-400)
[2018-03-11] MEDS: Levothyroxine Sodium 50 MCG TAB PO SCH (06:18)
[2018-03-11] MEDS: Sodium Chloride 0.9% 1,000 ML IV SCH ×3 (06:43→20:31)
--- NOTE | 2018-03-11 07:02 | CON ---
DATE OF CONSULTATION: 03/10/2018 HISTORY OF PRESENT ILLNESS: Ms. Pineda is an 87-year-old female who presented with severe anemia. Her complaints were weakness. She has been on Eliquis for DVT in the past. She subsequently feeling better after transfusion. She has had a Doppler this admission showing no clots. Discharge with DVT actually was only 6 days ago. PAST MEDICAL HISTORY: Remarkable for; 1. Urinary tract infections. 2. Hypertension. 3. Diastolic dysfunction. 4. Hypothyroidism. 5. Reflux disease. 6. COPD. 7. History reportedly in past admissions of dementia. 8. History of appendectomy. 9. History of cholecystectomy. 10. History of nephrolithiasis with lithotripsy in the past. 11. Status post hysterectomy. SOCIAL HISTORY: She is a nonsmoker and had smoked in over 30 years. She got drank. She is weak. Ambulates with a walker, lives with her daughter. ALLERGIES: She reports allergies to CODEINE, ERYTHROMYCIN, SINGULAIR, LATEX, AND SULFA. FAMILY HISTORY: Negative for lung disease in early age. REVIEW OF SYSTEMS: 10 point system review completed, otherwise negative. PHYSICAL EXAMINATION: GENERAL: Her complaints were weakness VITAL SIGNS: Afebrile, heart rate 94, respiratory rate 16, blood pressure 152/ 66. HEENT: Pupils react. Sclerae are anicteric. Extraocular movements are full. NECK: Supple. LUNGS: Clear. HEART: Regular rhythm. S1 and S2 are normal. ABDOMEN: Soft and nontender. EXTREMITIES: Without clubbing, cyanosis, or edema. LABORATORY DATA: Hemoglobin yesterday afternoon at 5:00 was 5.7. It is interesting that her MCV is 107 on her initial blood. Obviously, after transfusion, her hemoglobin is 8.3 and her MCV has come down to 98. Renal function is adequate with a creatinine of 1.49, potassium 4.5. B12 and folate levels normal. IMPRESSION: Severe anemia with an elevated mean corpuscular volume. I would wonder about myelodysplasia. There is no history of bleeding. She has been on iron tablets and says her stools green, but she says it always been green when she takes iron. It is reasonable to withhold anticoagulants at this point. It is also reasonable transfer out of the Intermediate Care Unit before. I would recommend placing an inferior vena cava filter in her. Before I would place an inferior vena cava filter, I would be sure the patient does have a blood loss anemia. I do not find any documentation of heme positive stool or blood per rectum. In her age group likely that she has myelodysplasia accounting for her dramatically elevated mean corpuscular volume. She has had an MCV is high as 110 dating back to 2017 where she does have cystitis again. I will be happy to follow with the other physicians caring for her. This was a 70-minute consult with greater than 50% of the time being spent on unit coordinating care. BINU
[2018-03-11] MEDS: Mometasone/Formoterol 120 PUFF INHALER INH SCH ×2 (07:03→18:58)
[2018-03-11] MEDS: Acetaminophen 500 MG TAB PO SCH ×2 (08:27→20:34)
[2018-03-11] MEDS: Calcium Carbonate + Vit D 1 TAB PO SCH ×2 (08:27→20:32)
[2018-03-11] MEDS: Ferrous Sulfate 325 MG TAB PO SCH ×2 (08:27→16:30)
[2018-03-11] MEDS: Lisinopril 10 MG TAB PO SCH (08:27)
[2018-03-11] MEDS: Ascorbic Acid 500 mg Chewable Tablet PO SCH (08:28)
[2018-03-11] MEDS: busPIRone HCl 5 MG TAB PO SCH ×2 (08:28→20:31)
[2018-03-11] MEDS: Carvedilol 6.25 MG TAB PO SCH ×2 (08:28→20:32)
[2018-03-11] MEDS: Polyethylene Glycol 3350 17 GM Packet PO SCH (08:28)
[2018-03-11] MEDS ORDERED: Meropenem 1 GM in Sodium Chloride 0.9% 100 ML IVPB SCH (09:11)
[2018-03-11] MEDS: Latanoprost 0.005% Ophth Soln 2.5 ml Bottle EA EYE SCH (09:53)
[2018-03-11] MEDS: Estradiol 0.01% Vaginal Cream 42.5 gm Tube VAG SCH (09:53)
[2018-03-11] MEDS: Fluticasone Propionate Nasal Spray 16 gm Bottle NASAL SCH (09:54)
[2018-03-11] MEDS: MEROPENEM 1 GM/50 ML 1 GM in Premix Bag 1 BAG IVPB SCH ×2 (11:33→20:31)
--- NOTE | 2018-03-11 13:12 | PDOC.PN ---
- Subjective Encounter Start Date: 03/11/18 Encounter Start Time: 12:54 Subjective: feels better.denies any abd pain/chest pain/SOB -: having greenish stools. no obviuos blood in stools - Objective Resuscitation Status: Resuscitation Status DNR:Do Not Resuscitate MAR Reviewed: Yes Vital Signs & Weight: Vital Signs (12 hours) Temp Pulse Resp BP BP Pulse Ox 03/11/18 08:28 165/79 H 03/11/18 08:27 165/79 H 03/11/18 08:00 98.2 F 98 18 165/79 H 96 03/11/18 07:03 81 16 95 03/11/18 04:00 98.3 F 98 16 179/68 H 98 Weight Weight 115 lb 6.4 oz I&O: 03/10/18 03/11/18 03/12/18 06:59 06:59 06:59 Intake Total 500 2048 Balance 500 2048 Result Diagrams: 03/11/18 05:20 03/11/18 05:20 Additional Labs: Microbiology 03/11/18 08:50 Stool - Formed Stool Occult Blood (PATRICIA) - Final 03/09/18 18:15 Urine clean catch Urine Culture - Preliminary Gram Negative Cristofer 03/09/18 10:40 Urine clean catch Urine Culture - Preliminary Escherichia coli Phys Exam - Physical Examination Constitutional: NAD HEENT: PERRLA, moist MMs, sclera anicteric, oral pharynx no lesions Neck: no nodes, no JVD, supple, full ROM Respiratory: no wheezing, no rales, no rhonchi, wheezing present, clear to auscultation bilateral Cardiovascular: RRR, no significant murmur, no rub Gastrointestinal: soft, non-tender, no distention, positive bowel sounds Musculoskeletal: no edema, pulses present Neurological: non-focal, normal sensation, moves all 4 limbs Psychiatric: normal affect, A&O x 3 Skin: no rash Dx/Plan (1) Anemia due to acute blood loss Code(s): D62 - ACUTE POSTHEMORRHAGIC ANEMIA Status: Acute Comment: FOBT positive but history of Internal hemmorhoids (2) UTI (urinary tract infection) Status: Acute Comment: E.coli resistant to Quinolones.Pt allergic to PCN (3) Generalized weakness Code(s): R53.1 - WEAKNESS Status: Acute (4) CKD (chronic kidney disease) stage 3, GFR 30-59 ml/min Code(s): N18.3 - CHRONIC KIDNEY DISEASE, STAGE 3 (MODERATE) Status: Chronic (5) Alzheimer's dementia Code(s): G30.9 - ALZHEIMER'S DISEASE, UNSPECIFIED Status: Chronic Qualifiers: Alzheimer's disease onset: unspecified onset Dementia behavioral disturbance: without behavioral disturbance Qualified Code(s): G30.9 - Alzheimer's disease, unspecified; F02.80 - Dementia in other diseases classified elsewhere without behavioral disturbance (6) Anxiety and depression Code(s): F41.9 - ANXIETY DISORDER, UNSPECIFIED; F32.9 - MAJOR DEPRESSIVE DISORDER, SINGLE EPISODE, UNSPECIFIED Status: Chronic (7) CHF (congestive heart failure) Code(s): I50.9 - HEART FAILURE, UNSPECIFIED Status: Chronic Qualifiers: Qualified Code(s): I50.31 - Acute diastolic (congestive) heart failure Comment: diastolic ef 50-55%, class 2 (8) COPD (chronic obstructive pulmonary disease) Status: Chronic Qualifiers: COPD type: chronic bronchitis Chronic bronchitis type: unspecified Qualified Code(s): J42 - Unspecified chronic bronchitis Comment: (9) GERD (gastroesophageal reflux disease) Code(s): K21.9 - GASTRO-ESOPHAGEAL REFLUX DISEASE WITHOUT ESOPHAGITIS Status: Chronic Qualifiers: Esophagitis presence: esophagitis presence not specified Qualified Code(s) : K21.9 - Gastro-esophageal reflux disease without esophagitis (10) Glaucoma Code(s): H40.9 - UNSPECIFIED GLAUCOMA Status: Chronic (11) Hypertension Code(s): I10 - ESSENTIAL (PRIMARY) HYPERTENSION Status: Chronic Qualifiers: Hypertension type: essential hypertension Qualified Code(s): I10 - Essential (primary) hypertension (12) Hypothyroidism Code(s): E03.9 - HYPOTHYROIDISM, UNSPECIFIED Status: Chronic Qualifiers: Hypothyroidism type: unspecified Qualified Code(s): E03.9 - Hypothyroidism , unspecified (13) Protein-calorie malnutrition, moderate Code(s): E44.0 - MODERATE PROTEIN-CALORIE MALNUTRITION Status: Chronic - Plan continue antibiotics, PT/OT, respiratory therapy, incentive spirometry, out of bed/ambulate, DVT proph w/SCDs change Abx to meropenam.Hemodynamically stable -: ? need for Colonoscope .Pt poor candidate for invasive procedures -: tried calling daughter Ms Minor-but no response.Will consult Palliative.DNR -: H/h stable but lower again today.Suspect Microscopic bleed-may need RBC sca -: Increase PPI to BID.Pt can not tell if she would want aggressive measures * .Agree w IVC filter as pt has H/O GIB and DVT as well. * am labs. * conservative management for now. * transfuse if Hb <7. H/H q12h * Review of Systems - Review of Systems Constitutional: negative: fever, chills, sweats, weakness, malaise, other ENT: negative: Ear Pain, Ear Discharge, Nose Pain, Nose Discharge, Nose Congestion, Mouth Pain, Mouth Swelling, Throat Pain, Throat Swelling, Other Respiratory: negative: Cough, Dry, Shortness of Breath, Hemoptysis, SOB with Excertion, Pleuritic Pain, Sputum, Wheezing Cardiovascular: negative: chest pain, palpitations, orthopnea, paroxysmal nocturnal dyspnea, edema, light headedness, other Genitourinary: negative: Dysuria, Frequency, Incontinence, Hematuria, Retention , Other Musculoskeletal: negative: Neck Pain, Shoulder Pain, Arm Pain, Back Pain, Hand Pain, Leg Pain, Foot Pain, Other Neurological: negative: Weakness, Numbness, Incoordination, Change in Speech, Confusion, Seizures, Other - Medications/Allergies Allergies/Adverse Reactions: Allergies Allergy/AdvReac Type Severity Reaction Status Date / Time adhesive Allergy Verified 02/17/18 17:23 codeine Allergy Verified 09/04/16 03:52 doxycycline Allergy Verified 09/04/16 03:52 erythromycin base Allergy Verified 09/04/16 03:52 [Erythromycin Base] Latex, Natural Rubber Allergy Verified 09/04/16 03:52 montelukast Allergy Verified 09/04/16 03:52 Penicillins Allergy Verified 02/17/18 17:24 Sulfa (Sulfonamide Allergy Verified 09/04/16 03:52 Antibiotics) Medications: Current Medications Acetaminophen (Tylenol) 650 mg PO Q4H PRN PRN Reason: Headache/Fever or Pain Last Admin: 03/10/18 01:00 Dose: 650 mg Acetaminophen (Tylenol) 1,000 mg PO BID [facility] Last Admin: 03/11/18 08:27 Dose: 1,000 mg Albuterol Sulfate (Proventil Hfa) 2 puff INH Q6H PRN PRN Reason: SOB &/or Wheezing Ascorbic Acid (Vitamin C) 500 mg PO DAILY [facility] Last Admin: 03/11/18 08:28 Dose: 500 mg Azelastine HCl (Azelastine) 0 ml NS PRN PRN PRN Reason: DRAINAGE Buspirone HCl (Buspar) 15 mg PO BID [facility] Last Admin: 03/11/18 08:28 Dose: 15 mg Calcium/Vitamin D (Caltrate 600 + Vit D) 1 tab PO BID [facility] Last Admin: 03/11/18 08:27 Dose: 1 tab Carvedilol (Coreg) 6.25 mg PO BID [facility] Last Admin: 03/11/18 08:28 Dose: 6.25 mg Enoxaparin Sodium (Lovenox) 40 mg SC 2100 [facility] Last Admin: 03/10/18 20:37 Dose: 40 mg Estradiol (Estrace 0.01% Vaginal Cream) 0 gm VAG DAILY [facility] Last Admin: 03/11/18 09:53 Dose: 1 gm Ferrous Sulfate (Feosol) 325 mg PO BID-[facility] Last Admin: 03/11/18 08:27 Dose: 325 mg Fluticasone Propionate (Flonase Nasal [place]) 0 gm NASAL DAILY [facility] Last Admin: 03/11/18 09:54 Dose: 1 spr Sodium Chloride (Normal Saline 0.9%) 1,000 mls @ 75 mls/hr IV .[id number] [facility] Last Admin: 03/11/18 06:43 Dose: 1,000 mls Meropenem 1 gm/ Device 50 mls @ 100 mls/hr IVPB 0400,1200,2000 [facility] Last Admin: 03/11/18 11:33 Dose: 50 mls Latanoprost (Xalatan 0.005% [facility]) 1 drop EA EYE DAILY [facility] Last Admin: 03/11/18 09:53 Dose: 1 drop Levothyroxine Sodium (Synthroid) 50 mcg PO 0600 [facility] Last Admin: 03/11/18 06:18 Dose: 50 mcg Lisinopril (Zestril) 10 mg PO DAILY [facility] Last Admin: 03/11/18 08:27 Dose: 10 mg Mirabegron (Myrbetriq Er) 50 mg PO DAILY [facility] Last Admin: 03/11/18 09:52 Dose: 50 mg Mirtazapine (Remeron) 15 mg PO HS [facility] Last Admin: 03/10/18 20:37 Dose: 15 mg Mometasone Furoate/Formoterol Fumar (Dulera 200 Mcg/5 Mcg Inhaler) 2 puff INH BID-[facility] Last Admin: 03/11/18 07:03 Dose: 2 puff Ondansetron HCl (Zofran) 4 mg IVP Q6H PRN PRN Reason: Nausea/Vomiting Pantoprazole Sodium (Protonix) 40 mg PO BID [facility] Ospemifene [Osphena] (60 Mg) 0 each PO DAILY [facility] Polyethylene Glycol (Miralax) 17 gm PO DAILY [facility] Last Admin: 03/11/18 08:28 Dose: 17 gm Quetiapine Fumarate (Seroquel) 50 mg PO HS [facility] Last Admin: 03/10/18 20:37 Dose: 50 mg Sodium Chloride (Flush - Normal Saline) 10 ml IVF Q12HR [facility] Last Admin: 03/11/18 10:11 Dose: Not Given Sodium Chloride (Flush - Normal Saline) 10 ml IVF PRN PRN PRN Reason: Saline Flush
[2018-03-11] MEDS: GLUCOSAMINE SULFATE 1000 MG PO SCH ×2 (14:21→19:34)
--- NOTE | 2018-03-11 15:16 | CON ---
DATE OF CONSULTATION: 03/11/2018 REASON FOR CONSULTATION: Possible GI bleed. HISTORY OF PRESENT ILLNESS: Ms. Pineda is a pleasant 87-year-old female, who recently came into the hospital on the , secondary to weakness. She was started on Eliquis about a month prior for DVT and had been feeling more weak and tired. She has a long history of suprapubic discomfort, chronic or intermittent UTIs, although, on admission, had no overt bleeding, bright blood per rectum, or hetcor turia. The patient is unsure if she has been having bleeding at home, although she is on chronic iro n. She came in on 03/09/2018 with hemoglobin 7.8, which then subsequently dropped to 5.7; hemoglobin 9.1 on 02/21/2018. Her hemoglobin usually runs in the 9-10 range, reviewing her records. She was a dmitted to the hospital and transfused 1 unit of blood on the ; however, hemoglobin has been joshua tored since then and it went up to 8.3, and today, it is 7.4. Reportedly, she has had 3 bowel moveme nts today, which have been dark. The nurse sent one off and it was heme positive. Here, the patient has been seen by Dr. Mena, who felt she was at high risk for endoscopy and recommended just holding the Eliquis that they would pursue having an IVC filter put in. She has been started on a PPI. Presently, the patient states her stools typically are dark at home. She denies any abdominal pain. She states she has had breakfast. She has no nausea or vomiting. She denies any bright red blood p er rectum. She states that the hospital doctor wanted her to have a colonoscopy; however, she states that Dr. Mena told her he did not think she should undergo that. Reviewing her old records, she has had a pretty extensive GI history. Per Dr. Marcelo's consultation no te dated 09/04/2016, she had had a history of chronic iron deficiency anemia with an endoscopy with Chandrakant Savage for AVMs in 2007. Apparently, she had a colonoscopy in 2007, which was normal except fo r diverticulosis and hemorrhoids, and in 2010, she had a colonoscopy with Dr. Loya at this facility and that was normal. Those records are no longer available in the EMR to confirm. On 09/05/2016, Dr Jong Marcelo did perform upper and lower endoscopy for rectal bleeding. She has some friable internal hemo rrhoids, but otherwise normal upper and lower endoscopy with no AV malformation seen at that time. PAST MEDICAL HISTORY: COPD, recurrent UTIs, presbycusis, chronic suprapubic abdominal pain, diastoli c dysfunction, reflux, COPD, hyponatremia. PAST SURGICAL HISTORY: Include appendectomy; cholecystectomy; nephrolithiasis; prior lithotripsy; pr ior upper and lower endoscopies as noted above; and DVT, diagnosed on 02/17/2018 of right femoral vein , for which she was started on anticoagulation. SOCIAL HISTORY: Patient lives in home with family. She drinks very rarely in social situations. Sh e does not use drugs. She does not smoke. ALLERGIES: ADHESIVES, CODEINE, LATEX, DOXYCYCLINE, ERYTHROMYCIN, MONTELUKAST, PENICILLIN, SULFA DRUG S. PRESENT MEDICATIONS: Tylenol, Proventil, vitamin C, BuSpar, Caltrate, Coreg, Lovenox 40 subcu once d aily, iron, fluticasone propionate, latanoprost eye drops, levothyroxine, lisinopril, meropenem, mirt azapine, Protonix 40 p.o. b.i.d., Zofran, Remeron, Myrbetriq, MiraLax, Seroquel, and normal saline at 75 an hour. HOME MEDICATIONS: BuSpar, Seroquel, MiraLax, Osphena, Remeron, Myrbetriq, Mobic, lisinopril, levothy roxine, , furosemide, estradiol, calcium, budesonide, azelastine spray, ascorbic acid, Eliquis, albuterol. REVIEW OF SYSTEMS: No dysphagia, odynophagia, weight loss. Patient is very hard of hearing. She lyons s difficult to comply and answering questions. PHYSICAL EXAMINATION: VITAL SIGNS: Blood pressure 165/79, 98.2, respirations 16. GENERAL: She is comfortable. She is very thin. She is alert and oriented. She has got some mild t emporal wasting. LUNGS: Clear. HEENT: Oropharynx without lesions. NECK: Supple. ABDOMEN: Soft and nontender. There are no palpable hernias, inguinal areas. GENITOURINARY: Rectal examination reveals some dark green stool, is not overtly melenic, it smells l eric as a heavy smell of iron. EXTREMITIES: No clubbing, cyanosis, or edema. LABORATORY STUDIES: Hemoglobin today is 7.4, platelets were 363 yesterday, white count 8.4 yesterday . INR was 1.3 yesterday with chemistries, when she came in on the , her BUN was 43, typically it is in the 20s, it is 41 now with a creatinine of 1.49. Sodium 133, potassium 4.5. Liver function t ests were normal on admission. Albumin is 3.8 with a protein of 6.8. Troponin was less than 0.01. ASSESSMENT AND PLAN: This is an 87-year-old female, who was recently seen in the hospital with deep venous thrombosis and discharged home on Eliquis and NSAIDs. She returned with a drop in hemoglobin from baseline of around 8-5. She has Hemoccult positive stools. There was some history of melena at home, but there is no melena now. This in the background setting of a prior history of gastric renzo riovenous malformations, which were present in 2008, but not present in 2017, when she had endoscopy at this hospital. It is likely that she has had a subacute to acute gastrointestinal blood loss. Vianca zuniga seems hemodynamically stable now. She is high risk for endoscopy with significant chronic obstruct rashard pulmonary disease and other comorbidities and shows no signs of acute bleeding presently. Dr. Dieudonne woodward, who called me about her last night, notes that he felt that she would be high risk for endoscopy and he was not inclined to proceed with endoscopy unless there was overt hemorrhage. RECOMMENDATIONS: 1. Protonix 40 IV q.12 hours. 2. The patient has ongoing bleeding. Would need endoscopy as the patient is definitely at high risk for having gastric ulcers, having been on Meloxicam in the outpatient setting with no prophylaxis. 3. If she is going to need to stay on anticoagulation, she probably needs an upper endoscopy. So, urbano zuniga are going to switch to therapy with IVC filter and forgo anticoagulation and I would continue on PP I therapy, and if she does not show signs of bleeding and stable hemoglobin, we can hold off on endos copy. We will follow along with you.
--- NOTE | 2018-03-11 17:46 | PRG ---
DATE OF SERVICE: 03/11/2018 SUBJECTIVE: I discussed Ms. Pineda last night with Dr. Wang. He tells me that Dr. Savage has identified AV malformations in her stomach in the past and Dr. Marcelo has found diverticulosis in her c olon. She had no gross bleeding overnight. Her hemoglobin is 8.3 two days ago, 8.0 yesterday, 7.4 this mor jared. It is likely that she will need more blood. Electrolytes were unremarkable. Order reticulocyte count today. Given a 3-gram drop in hemoglobin, I do not really see any way we can continue with full dose anticoa gulation, so I placed a consult in the morning for Cardiothoracic Surgery for an inferior vena cava f ilter. She is agreeable to this. She has gram negative celestino in her urine. E. coli was identified that is ampicillin, Mefoxin and joaquin lone resistant. It is sensitive to sulfa. She had E. coli identified with a sulfa resistance pattern back in August of this year. IMPRESSION AND PLAN: Severe anemia in part secondary to blood loss. I suspect that her reticulocyte count will be low. I do not feel that all of this is iron deficiency. I think there is some likeli brink that she may have myelodysplasia, although I would like to think her platelet count would be low er. In any event, the consult will be placed in the morning. Cystitis will be managed by the hospitalist.
[2018-03-11 18:23] LABS: Reticulocyte Count 9.3 % (0.5-1.5)
[2018-03-11 18:24] LABS: Hemoglobin 8.2 g/dL (12.0-16.0)
[2018-03-11] MEDS: Mirtazapine 15 MG TAB PO SCH (20:31)
[2018-03-11] MEDS: Enoxaparin Sodium 40 MG/0.4 ML SYRINGE SC SCH (20:32)
[2018-03-12] MEDS: Levothyroxine Sodium 50 MCG TAB PO SCH (04:42)
[2018-03-12] MEDS: MEROPENEM 1 GM/50 ML 1 GM in Premix Bag 1 BAG IVPB SCH ×3 (04:44→20:07)
[2018-03-12] MEDS: Mometasone/Formoterol 120 PUFF INHALER INH SCH ×2 (06:46→19:14)
--- NOTE | 2018-03-12 07:14 | CON ---
DATE OF CONSULTATION: 03/12/2018 HISTORY OF PRESENT ILLNESS: Ms. Pineda is an 87-year-old woman, who was admitted with anemia. She has a history of AVM and diverticulosis. She also has a history of recent right femoral DVT, which w as treated with Eliquis. Eliquis has been stopped. I have been asked to see her to place an inferio r vena cava filter. PAST MEDICAL HISTORY: 1. Hypertension. 2. Chronic obstructive pulmonary disease. 3. Gastroesophageal reflux disease. 4. Hypothyroidism. 5. Diastolic dysfunction. 6. Dementia. PAST SURGICAL HISTORY: 1. Appendectomy. 2. Cholecystectomy. 3. Nephrolithiasis. 4. Status post hysterectomy. ALLERGIES: CODEINE, ERYTHROMYCIN, SINGULAIR, LATEX, AND SULFA. REVIEW OF SYSTEMS: Ten-point review of systems is negative per her chart. PHYSICAL EXAMINATION: GENERAL: This is a diminutive elderly woman, resting comfortably in bed, answering all questions leonor ropriately. VITAL SIGNS: Her height is 5 feet 5 inches, weight is 115 pounds, temperature is 98.4, pulse is 90, blood pressure is 152/74. LUNGS: Clear bilaterally. HEART: Rhythm is regular. ABDOMEN: Soft and nontender. EXTREMITIES: There is no edema. I have reviewed her previous ultrasounds. She currently has no DVT in either leg. Her current hemog lobin is 8.2, which is up from 5.7 at admission. She has a creatinine of 1.3 currently. ASSESSMENT AND PLAN: History of deep vein thrombosis with failure of anticoagulant therapy due to a gastrointestinal bleed and anemia. I have discussed permanent inferior vena cava filter placement wi th her. Post-filter, she would need to be on an aspirin 81 mg every day and she is agreeable to this .
[2018-03-12 07:18] LABS: Hemoglobin 8.5 g/dL (12.0-16.0)
[2018-03-12] MEDS: Ferrous Sulfate 325 MG TAB PO SCH ×2 (07:54→17:18)
[2018-03-12] MEDS: Carvedilol 6.25 MG TAB PO SCH ×2 (07:55→20:10)
[2018-03-12] MEDS: Ascorbic Acid 500 mg Chewable Tablet PO SCH (07:55)
[2018-03-12] MEDS: Calcium Carbonate + Vit D 1 TAB PO SCH ×2 (07:55→20:10)
[2018-03-12] MEDS: Acetaminophen 500 MG TAB PO SCH ×2 (07:55→20:09)
[2018-03-12] MEDS: Estradiol 0.01% Vaginal Cream 42.5 gm Tube VAG SCH (07:55)
[2018-03-12] MEDS: busPIRone HCl 5 MG TAB PO SCH ×2 (07:55→20:09)
[2018-03-12] MEDS: Lisinopril 10 MG TAB PO SCH (07:56)
[2018-03-12] MEDS: Latanoprost 0.005% Ophth Soln 2.5 ml Bottle EA EYE SCH (07:56)
[2018-03-12] MEDS: Fluticasone Propionate Nasal Spray 16 gm Bottle NASAL SCH (07:56)
[2018-03-12] MEDS: Polyethylene Glycol 3350 17 GM Packet PO SCH (07:57)
[2018-03-12] MEDS ORDERED: Iopamidol 370 76% 50 ML VIAL FS ONE (09:25)
--- NOTE | 2018-03-12 09:38 | PRG ---
DATE OF SERVICE: 03/12/2018 Ms. Pineda has no new complaints. She denies shortness of breath. PHYSICAL EXAMINATION: VITAL SIGNS: She is afebrile, blood pressure is modestly elevated 170/75 this morning, respiratory r ate 16, oximetry is 95 on room air. LUNGS: Lungs are clear. She is being evaluated for a filter placement today. IMPRESSION: 1. Recent deep venous thrombosis with a high risk for recurrence. 2. Gastrointestinal blood loss. 3. Elevated mean corpuscular volume with no B12 or folate deficiency, still concerned about myelodys plasia, but the workup is probably not necessary at this time. We will continue with current supportive care.
[2018-03-12] MEDS ORDERED: Lidocaine 1% (PF) 30 ML VIAL ONE (10:49)
[2018-03-12] MEDS: Sodium Chloride 0.9% 1,000 ML IV SCH ×2 (10:49→20:09)
--- NOTE | 2018-03-12 12:28 | OP ---
DATE OF PROCEDURE: 03/12/2018 PREOPERATIVE DIAGNOSIS: Right femoral deep venous thrombosis with contraindication to anticoagulatio n. POSTOPERATIVE DIAGNOSIS: Right femoral deep venous thrombosis with contraindication to anticoagulati on. PROCEDURES: 1. Ultrasound guided venous access. 2. Abdominal IVC gram. 3. Inferior vena cava filter placement -- TrapEase placed with its tip at the cephalad border of L2. TOTAL CONTRAST: 4 mL TOTAL FLUOROSCOPY TIME: 0.5 minutes. ESTIMATED BLOOD LOSS: Minimal. PROCEDURE IN DETAIL: After consent was obtained, the patient was brought to the laborer aquatic life, placed in supine position on the laborer aquatic life table. Appropriate monitoring was placed. The groins were prepped a nd draped in the usual sterile fashion. Using ultrasound guidance, the left common femoral vein was isolated. Access was obtained and a sheath placed at the level of L2. Hand injected inferior vena c avogram was performed. The vena cava below the renal veins measured less than 2.5 cm. Renal veins w ere located at the mid body of L1. Filter was positioned with its tip at the cephalad border of L2 a nd deployed. Filter seated nicely. Sheath was removed and manual pressure held for hemostasis. The patient tolerated the procedure well and was transferred back to her room.
--- NOTE | 2018-03-12 14:22 | PDOC.PN ---
- Subjective Encounter Start Date: 03/12/18 Encounter Start Time: 15:05 Subjective: s/p IVC filter placement -: denies any pain/discomfort.feels very good - Objective Resuscitation Status: Resuscitation Status DNR:Do Not Resuscitate MAR Reviewed: Yes Vital Signs & Weight: Vital Signs (12 hours) Temp Pulse Pulse Resp BP BP BP 03/12/18 11:22 91 177/69 H 03/12/18 08:00 03/12/18 07:56 170/75 H 03/12/18 07:55 170/75 H 03/12/18 07:31 99 F 91 16 170/75 H 03/12/18 04:00 98.4 F 90 16 152/74 H Pulse Ox Pulse Ox 03/12/18 11:22 95 03/12/18 08:00 95 03/12/18 07:56 03/12/18 07:55 03/12/18 07:31 95 03/12/18 04:00 95 Weight Weight 115 lb 6.4 oz I&O: 03/11/18 03/12/18 03/13/18 06:59 06:59 06:59 Intake Total 2047 3029 Output Total 2 Balance 2047 3028 Result Diagrams: 03/12/18 07:03 03/11/18 05:20 Additional Labs: Microbiology 03/11/18 08:50 Stool - Formed Stool Occult Blood (PATRICIA) - Final 03/09/18 18:15 Urine clean catch Urine Culture - Final Escherichia coli Phys Exam - Physical Examination Constitutional: NAD sitting up in chair HEENT: PERRLA, moist MMs, sclera anicteric, oral pharynx no lesions Neck: no nodes, no JVD, supple, full ROM Respiratory: no wheezing, no rales, no rhonchi, clear to auscultation bilateral Cardiovascular: RRR, no significant murmur, no rub Gastrointestinal: soft, non-tender, no distention, positive bowel sounds Musculoskeletal: no edema, pulses present Neurological: non-focal, normal sensation, moves all 4 limbs Psychiatric: normal affect, A&O x 3 Skin: no rash Dx/Plan (1) Anemia due to acute blood loss Code(s): D62 - ACUTE POSTHEMORRHAGIC ANEMIA Status: Acute Comment: FOBT positive but history of Internal hemmorhoids (2) UTI (urinary tract infection) Status: Acute Comment: E.coli resistant to Quinolones.Pt allergic to PCN (3) Generalized weakness Code(s): R53.1 - WEAKNESS Status: Acute Comment: OT/PT (4) CKD (chronic kidney disease) stage 3, GFR 30-59 ml/min Code(s): N18.3 - CHRONIC KIDNEY DISEASE, STAGE 3 (MODERATE) Status: Chronic (5) Alzheimer's dementia Code(s): G30.9 - ALZHEIMER'S DISEASE, UNSPECIFIED Status: Chronic Qualifiers: Alzheimer's disease onset: unspecified onset Dementia behavioral disturbance: without behavioral disturbance Qualified Code(s): G30.9 - Alzheimer's disease, unspecified; F02.80 - Dementia in other diseases classified elsewhere without behavioral disturbance (6) Anxiety and depression Code(s): F41.9 - ANXIETY DISORDER, UNSPECIFIED; F32.9 - MAJOR DEPRESSIVE DISORDER, SINGLE EPISODE, UNSPECIFIED Status: Chronic (7) CHF (congestive heart failure) Code(s): I50.9 - HEART FAILURE, UNSPECIFIED Status: Chronic Comment: diastolic ef 50-55%, class 2 (8) COPD (chronic obstructive pulmonary disease) Status: Chronic Qualifiers: COPD type: chronic bronchitis Chronic bronchitis type: unspecified Qualified Code(s): J42 - Unspecified chronic bronchitis Comment: (9) GERD (gastroesophageal reflux disease) Code(s): K21.9 - GASTRO-ESOPHAGEAL REFLUX DISEASE WITHOUT ESOPHAGITIS Status: Chronic Qualifiers: Esophagitis presence: esophagitis presence not specified Qualified Code(s) : K21.9 - Gastro-esophageal reflux disease without esophagitis (10) Glaucoma Code(s): H40.9 - UNSPECIFIED GLAUCOMA Status: Chronic (11) Hypertension Code(s): I10 - ESSENTIAL (PRIMARY) HYPERTENSION Status: Chronic Qualifiers: Hypertension type: essential hypertension Qualified Code(s): I10 - Essential (primary) hypertension (12) Hypothyroidism Code(s): E03.9 - HYPOTHYROIDISM, UNSPECIFIED Status: Chronic Qualifiers: Hypothyroidism type: unspecified Qualified Code(s): E03.9 - Hypothyroidism , unspecified (13) Protein-calorie malnutrition, moderate Code(s): E44.0 - MODERATE PROTEIN-CALORIE MALNUTRITION Status: Chronic (14) H/O deep venous thrombosis Code(s): Z86.718 - PERSONAL HISTORY OF OTHER VENOUS THROMBOSIS AND EMBOLISM Status: Acute - Plan PT/OT, out of bed/ambulate, DVT proph w/SCDs S/P IVC filter today.Not OAC candidate d/t GIB,fall risk -: susannah DUNIA home tomorrow w . -: hemodynamically stable -: await final urine Cx results * . Review of Systems - Review of Systems Constitutional: negative: fever, chills, sweats, weakness, malaise, other ENT: negative: Ear Pain, Ear Discharge, Nose Pain, Nose Discharge, Nose Congestion, Mouth Pain, Mouth Swelling, Throat Pain, Throat Swelling, Other Respiratory: negative: Cough, Dry, Shortness of Breath, Hemoptysis, SOB with Excertion, Pleuritic Pain, Sputum, Wheezing Cardiovascular: negative: chest pain, palpitations, orthopnea, paroxysmal nocturnal dyspnea, edema, light headedness, other Gastrointestinal: negative: Nausea, Vomiting, Abdominal Pain, Diarrhea, Constipation, Melena, Hematochezia, Other Genitourinary: negative: Dysuria, Frequency, Incontinence, Hematuria, Retention , Other Musculoskeletal: negative: Neck Pain, Shoulder Pain, Arm Pain, Back Pain, Hand Pain, Leg Pain, Foot Pain, Other Neurological: negative: Weakness, Numbness, Incoordination, Change in Speech, Confusion, Seizures, Other - Medications/Allergies Allergies/Adverse Reactions: Allergies Allergy/AdvReac Type Severity Reaction Status Date / Time adhesive Allergy Verified 02/17/18 17:23 codeine Allergy Verified 09/04/16 03:52 doxycycline Allergy Verified 09/04/16 03:52 erythromycin base Allergy Verified 09/04/16 03:52 [Erythromycin Base] Latex, Natural Rubber Allergy Verified 09/04/16 03:52 montelukast Allergy Verified 09/04/16 03:52 Penicillins Allergy Verified 02/17/18 17:24 Sulfa (Sulfonamide Allergy Verified 09/04/16 03:52 Antibiotics) Medications: Current Medications Acetaminophen (Tylenol) 650 mg PO Q4H PRN PRN Reason: Headache/Fever or Pain Last Admin: 03/10/18 01:00 Dose: 650 mg Acetaminophen (Tylenol) 1,000 mg PO BID SRINIVAS Last Admin: 03/12/18 07:55 Dose: Not Given Albuterol Sulfate (Proventil Hfa) 2 puff INH Q6H PRN PRN Reason: SOB &/or Wheezing Ascorbic Acid (Vitamin C) 500 mg PO DAILY [facility] Last Admin: 03/12/18 07:55 Dose: Not Given Azelastine HCl (Azelastine) 0 ml NS PRN PRN PRN Reason: DRAINAGE Buspirone HCl (Buspar) 15 mg PO BID [facility] Last Admin: 03/12/18 07:55 Dose: Not Given Calcium/Vitamin D (Caltrate 600 + Vit D) 1 tab PO BID [facility] Last Admin: 03/12/18 07:55 Dose: Not Given Carvedilol (Coreg) 6.25 mg PO BID [facility] Last Admin: 03/12/18 07:55 Dose: 6.25 mg Enoxaparin Sodium (Lovenox) 40 mg SC 2100 [facility] Last Admin: 03/11/18 20:32 Dose: 40 mg Estradiol (Estrace 0.01% Vaginal Cream) 0 gm VAG DAILY [facility] Last Admin: 03/12/18 07:55 Dose: 1 gm Ferrous Sulfate (Feosol) 325 mg PO BID[facility] Last Admin: 03/12/18 07:54 Dose: Not Given Fluticasone Propionate (Flonase Nasal [place]) 0 gm NASAL DAILY [facility] Last Admin: 03/12/18 07:56 Dose: 1 spr Sodium Chloride (Normal Saline 0.9%) 1,000 mls @ 75 mls/hr IV .[id number] [facility] Last Admin: 03/12/18 10:49 Dose: Not Given Meropenem 1 gm/ Device 50 mls @ 100 mls/hr IVPB 0400,1200,2000 [facility] Last Admin: 03/12/18 12:34 Dose: 50 mls Latanoprost (Xalatan 0.005% [facility]) 1 drop EA EYE DAILY [facility] Last Admin: 03/12/18 07:56 Dose: 1 drop Levothyroxine Sodium (Synthroid) 50 mcg PO 0600 [facility] Last Admin: 03/12/18 04:42 Dose: Not Given Lisinopril (Zestril) 10 mg PO DAILY [facility] Last Admin: 03/12/18 07:56 Dose: Not Given Mirabegron (Myrbetriq Er) 50 mg PO DAILY [facility] Last Admin: 03/12/18 07:57 Dose: Not Given Mirtazapine (Remeron) 15 mg PO HS [facility] Last Admin: 03/11/18 20:31 Dose: 15 mg Mometasone Furoate/Formoterol Fumar (Dulera 200 Mcg/5 Mcg Inhaler) 2 puff INH BID-RT [facility] Last Admin: 03/12/18 06:46 Dose: 2 puff Ondansetron HCl (Zofran) 4 mg IVP Q6H PRN PRN Reason: Nausea/Vomiting Pantoprazole Sodium (Protonix) 40 mg PO BID [facility] Last Admin: 03/12/18 07:57 Dose: Not Given Ospemifene [Osphena] (60 Mg) 0 each PO DAILY [facility] Polyethylene Glycol (Miralax) 17 gm PO DAILY [facility] Last Admin: 03/12/18 07:57 Dose: Not Given Quetiapine Fumarate (Seroquel) 50 mg PO HS [facility] Last Admin: 03/11/18 20:31 Dose: 50 mg Sodium Chloride (Flush - Normal Saline) 10 ml IVF Q12HR [facility] Last Admin: 03/12/18 07:57 Dose: Not Given Sodium Chloride (Flush - Normal Saline) 10 ml IVF PRN PRN PRN Reason: Saline Flush
[2018-03-12 18:19] LABS: Hemoglobin 8.8 g/dL (12.0-16.0)
[2018-03-12] MEDS: Enoxaparin Sodium 40 MG/0.4 ML SYRINGE SC SCH (20:11)
[2018-03-12] MEDS: Mirtazapine 15 MG TAB PO SCH (20:11)
[2018-03-13] MEDS: MEROPENEM 1 GM/50 ML 1 GM in Premix Bag 1 BAG IVPB SCH ×2 (05:07→11:34)
[2018-03-13] MEDS: Levothyroxine Sodium 50 MCG TAB PO SCH (05:09)
[2018-03-13 05:52] LABS: Hemoglobin 8.1 g/dL (12.0-16.0); Platelet Count 357 thou/uL (130-400)
[2018-03-13] MEDS: Mometasone/Formoterol 120 PUFF INHALER INH SCH ×2 (06:23→19:00)
[2018-03-13 06:36] LABS: Hemoglobin 7.6 g/dL (12.0-16.0)
[2018-03-13] MEDS: busPIRone HCl 5 MG TAB PO SCH ×2 (08:13→20:02)
[2018-03-13] MEDS: Acetaminophen 500 MG TAB PO SCH ×2 (08:14→19:59)
[2018-03-13] MEDS: Carvedilol 6.25 MG TAB PO SCH ×2 (08:14→20:00)
[2018-03-13] MEDS: Ascorbic Acid 500 mg Chewable Tablet PO SCH (08:14)
[2018-03-13] MEDS: Lisinopril 10 MG TAB PO SCH (08:14)
[2018-03-13] MEDS: Ferrous Sulfate 325 MG TAB PO SCH ×2 (08:14→18:11)
[2018-03-13] MEDS: Fluticasone Propionate Nasal Spray 16 gm Bottle NASAL SCH (08:15)
[2018-03-13] MEDS: Calcium Carbonate + Vit D 1 TAB PO SCH ×2 (08:15→20:01)
[2018-03-13] MEDS: Latanoprost 0.005% Ophth Soln 2.5 ml Bottle EA EYE SCH (08:15)
[2018-03-13] MEDS: Polyethylene Glycol 3350 17 GM Packet PO SCH (08:15)
[2018-03-13] MEDS: Estradiol 0.01% Vaginal Cream 42.5 gm Tube VAG SCH (08:15)
[2018-03-13] MEDS: Sodium Chloride 0.9% 1,000 ML IV SCH (14:36)
--- NOTE | 2018-03-13 14:39 | PDOC.PN ---
- Subjective Encounter Start Date: 03/13/18 Encounter Start Time: 14:37 Subjective: feels very well. -: denies any Abd pain/Blood in stools or black stools - Objective Resuscitation Status: Resuscitation Status DNR:Do Not Resuscitate MAR Reviewed: Yes Vital Signs & Weight: Vital Signs (12 hours) Temp Pulse Resp BP BP Pulse Ox 03/13/18 08:14 191/65 H 03/13/18 08:08 98 F 93 16 191/65 H 94 L 03/13/18 08:00 94 L Weight Weight 115 lb 6.4 oz I&O: 03/12/18 03/13/18 03/14/18 06:59 06:59 06:59 Intake Total 3030 1450 Output Total 2 Balance 3028 1450 Result Diagrams: 03/13/18 05:55 03/13/18 04:11 Additional Labs: Microbiology 03/11/18 08:50 Stool - Formed Stool Occult Blood (PATRICIA) - Final 03/09/18 18:15 Urine clean catch Urine Culture - Final Escherichia coli Laboratory Tests 03/09/18 03/09/18 03/10/18 17:08 20:54 04:10 Hgb 5.7 L* 8.3 L 8.0 L 03/11/18 03/11/18 03/12/18 05:20 18:16 07:03 Hgb 7.4 L 8.2 L 8.5 L 03/12/18 03/13/18 03/13/18 18:08 04:11 05:55 Hgb 8.8 L 8.1 L 7.6 L Phys Exam - Physical Examination Constitutional: NAD HEENT: PERRLA, moist MMs, sclera anicteric, oral pharynx no lesions Neck: no nodes, no JVD, supple, full ROM Respiratory: no wheezing, no rales, no rhonchi, clear to auscultation bilateral Cardiovascular: RRR, no significant murmur, no rub Gastrointestinal: soft, non-tender, no distention, positive bowel sounds Musculoskeletal: no edema, pulses present Neurological: non-focal, normal sensation, moves all 4 limbs Psychiatric: normal affect, A&O x 3 Skin: no rash Dx/Plan (1) Anemia due to acute blood loss Code(s): D62 - ACUTE POSTHEMORRHAGIC ANEMIA Status: Acute Comment: FOBT positive but history of Internal hemmorhoids (2) UTI (urinary tract infection) Status: Acute Comment: E.coli resistant to Quinolones.Pt allergic to PCN (3) Generalized weakness Code(s): R53.1 - WEAKNESS Status: Acute Comment: OT/PT (4) CKD (chronic kidney disease) stage 3, GFR 30-59 ml/min Code(s): N18.3 - CHRONIC KIDNEY DISEASE, STAGE 3 (MODERATE) Status: Chronic (5) Alzheimer's dementia Code(s): G30.9 - ALZHEIMER'S DISEASE, UNSPECIFIED Status: Chronic Qualifiers: Alzheimer's disease onset: unspecified onset Dementia behavioral disturbance: without behavioral disturbance Qualified Code(s): G30.9 - Alzheimer's disease, unspecified; F02.80 - Dementia in other diseases classified elsewhere without behavioral disturbance (6) Anxiety and depression Code(s): F41.9 - ANXIETY DISORDER, UNSPECIFIED; F32.9 - MAJOR DEPRESSIVE DISORDER, SINGLE EPISODE, UNSPECIFIED Status: Chronic (7) CHF (congestive heart failure) Code(s): I50.9 - HEART FAILURE, UNSPECIFIED Status: Chronic Comment: diastolic ef 50-55%, class 2 (8) COPD (chronic obstructive pulmonary disease) Status: Chronic Qualifiers: COPD type: chronic bronchitis Chronic bronchitis type: unspecified Qualified Code(s): J42 - Unspecified chronic bronchitis Comment: (9) GERD (gastroesophageal reflux disease) Code(s): K21.9 - GASTRO-ESOPHAGEAL REFLUX DISEASE WITHOUT ESOPHAGITIS Status: Chronic Qualifiers: Esophagitis presence: esophagitis presence not specified Qualified Code(s) : K21.9 - Gastro-esophageal reflux disease without esophagitis (10) Glaucoma Code(s): H40.9 - UNSPECIFIED GLAUCOMA Status: Chronic (11) Hypertension Code(s): I10 - ESSENTIAL (PRIMARY) HYPERTENSION Status: Chronic Qualifiers: Hypertension type: essential hypertension Qualified Code(s): I10 - Essential (primary) hypertension (12) Hypothyroidism Code(s): E03.9 - HYPOTHYROIDISM, UNSPECIFIED Status: Chronic Qualifiers: Hypothyroidism type: unspecified Qualified Code(s): E03.9 - Hypothyroidism , unspecified (13) Protein-calorie malnutrition, moderate Code(s): E44.0 - MODERATE PROTEIN-CALORIE MALNUTRITION Status: Chronic (14) H/O deep venous thrombosis Code(s): Z86.718 - PERSONAL HISTORY OF OTHER VENOUS THROMBOSIS AND EMBOLISM Status: Acute - Plan DVT proph w/SCDs H/H lower again today w/o overt bleed. Discussed w GI Dr Marcelo -: last EGD/colonoscopy negative in 08/26.only internal hemorrhoids -: Discussed w Daughter Ms Minor at bedside.She agreeable to plan so far -: Will get GI opinion,but likley not related to any GIB -: ont FeSO4 w laxatives w OP f/u.? MDS but unlikley * .DC home w HH if no further procedures planned * s/p IVC filter. POD #1 for h/o DVT & not a candidate for OAC Review of Systems - Review of Systems Constitutional: negative: fever, chills, sweats, weakness, malaise, other ENT: negative: Ear Pain, Ear Discharge, Nose Pain, Nose Discharge, Nose Congestion, Mouth Pain, Mouth Swelling, Throat Pain, Throat Swelling, Other Respiratory: negative: Cough, Dry, Shortness of Breath, Hemoptysis, SOB with Excertion, Pleuritic Pain, Sputum, Wheezing Cardiovascular: negative: chest pain, palpitations, orthopnea, paroxysmal nocturnal dyspnea, edema, light headedness, other Gastrointestinal: negative: Nausea, Vomiting, Abdominal Pain, Diarrhea, Constipation, Melena, Hematochezia, Other Genitourinary: negative: Dysuria, Frequency, Incontinence, Hematuria, Retention , Other Musculoskeletal: negative: Neck Pain, Shoulder Pain, Arm Pain, Back Pain, Hand Pain, Leg Pain, Foot Pain, Other Neurological: negative: Weakness, Numbness, Incoordination, Change in Speech, Confusion, Seizures, Other - Medications/Allergies Allergies/Adverse Reactions: Allergies Allergy/AdvReac Type Severity Reaction Status Date / Time adhesive Allergy Verified 02/17/18 17:23 codeine Allergy Verified 09/04/16 03:52 doxycycline Allergy Verified 09/04/16 03:52 erythromycin base Allergy Verified 09/04/16 03:52 [Erythromycin Base] Latex, Natural Rubber Allergy Verified 09/04/16 03:52 montelukast Allergy Verified 09/04/16 03:52 Penicillins Allergy Verified 02/17/18 17:24 Sulfa (Sulfonamide Allergy Verified 09/04/16 03:52 Antibiotics) Medications: Current Medications Acetaminophen (Tylenol) 650 mg PO Q4H PRN PRN Reason: Headache/Fever or Pain Last Admin: 03/10/18 01:00 Dose: 650 mg Acetaminophen (Tylenol) 1,000 mg PO BID [facility] Last Admin: 03/13/18 08:14 Dose: 1,000 mg Albuterol Sulfate (Proventil Hfa) 2 puff INH Q6H PRN PRN Reason: SOB &/or Wheezing Ascorbic Acid (Vitamin C) 500 mg PO DAILY [facility] Last Admin: 03/13/18 08:14 Dose: 500 mg Azelastine HCl (Azelastine) 0 ml NS PRN PRN PRN Reason: DRAINAGE Buspirone HCl (Buspar) 15 mg PO BID [facility] Last Admin: 03/13/18 08:13 Dose: 15 mg Calcium/Vitamin D (Caltrate 600 + Vit D) 1 tab PO BID [facility] Last Admin: 03/13/18 08:15 Dose: 1 tab Carvedilol (Coreg) 6.25 mg PO BID [facility] Last Admin: 03/13/18 08:14 Dose: 6.25 mg Enoxaparin Sodium (Lovenox) 30 mg SC 2100 [facility] Estradiol (Estrace 0.01% Vaginal Cream) 0 gm VAG DAILY [facility] Last Admin: 03/13/18 08:15 Dose: Not Given Ferrous Sulfate (Feosol) 325 mg PO BID-[facility] Last Admin: 03/13/18 08:14 Dose: 325 mg Fluticasone Propionate (Flonase Nasal [place]) 0 gm NASAL DAILY [facility] Last Admin: 03/13/18 08:15 Dose: 1 spr Sodium Chloride (Normal Saline 0.9%) 1,000 mls @ 75 mls/hr IV .[id number] [facility] Last Admin: 03/13/18 14:36 Dose: 1,000 mls Meropenem 1 gm/ Device 50 mls @ 100 mls/hr IVPB 1200,2359 [facility] Latanoprost (Xalatan 0.005% Oph Soln) 1 drop EA EYE DAILY [facility] Last Admin: 03/13/18 08:15 Dose: 1 drop Levothyroxine Sodium (Synthroid) 50 mcg PO 0600 [facility] Last Admin: 03/13/18 05:09 Dose: 50 mcg Lisinopril (Zestril) 10 mg PO DAILY [facility] Last Admin: 03/13/18 08:14 Dose: 10 mg Mirabegron (Myrbetriq Er) 50 mg PO DAILY [facility] Last Admin: 03/13/18 08:16 Dose: 50 mg Mirtazapine (Remeron) 15 mg PO HS [facility] Last Admin: 03/12/18 20:11 Dose: 15 mg Mometasone Furoate/Formoterol Fumar (Dulera 200 Mcg/5 Mcg Inhaler) 2 puff INH BID-RT [facility] Last Admin: 03/13/18 06:23 Dose: 2 puff Ondansetron HCl (Zofran) 4 mg IVP Q6H PRN PRN Reason: Nausea/Vomiting Pantoprazole Sodium (Protonix) 40 mg PO BID [facility] Last Admin: 03/13/18 08:14 Dose: 40 mg Ospemifene [Osphena] (60 Mg) 0 each PO DAILY [facility] Polyethylene Glycol (Miralax) 17 gm PO DAILY [facility] Last Admin: 03/13/18 08:15 Dose: 17 gm Quetiapine Fumarate (Seroquel) 50 mg PO HS [facility] Last Admin: 03/12/18 20:11 Dose: 50 mg Sodium Chloride (Flush - Normal Saline) 10 ml IVF Q12HR [facility] Last Admin: 03/13/18 08:25 Dose: Not Given Sodium Chloride (Flush - Normal Saline) 10 ml IVF PRN PRN PRN Reason: Saline Flush
--- NOTE | 2018-03-13 15:51 | PRG ---
DATE OF SERVICE: 03/13/2018 SUBJECTIVE: Ms. Pineda says she is feeling well. OBJECTIVE: VITAL SIGNS: She is afebrile. She was hypertensive today with blood pressure as high as 191/65 this morning. I do not see a follow up blood pressure, heart rate 73, respiratory rate 16, oximetry is 9 4. LUNGS: Clear. HEART: Regular rhythm. ABDOMEN: Soft. Her hemoglobin 7.6 today, 8.1 yesterday. She had an inferior vena cava filter placed. IMPRESSION: 1. Recent deep venous thrombosis. 2. Probable gastrointestinal blood loss on top of chronic anemia. Hemoglobin is less than 8 grams may drift down more. She will probably benefit from a transfus ion prior to discharge.
--- NOTE | 2018-03-13 17:19 | PDOC.EVN ---
Event Note - Event Note Event Note: Discussed w GI . Pt will get 1 unit PRBC and then OK to DC from GI stand point.Will transfuse and monitor overnight w possible DC early tomorrow am if stable/no transfusion reactions.
[2018-03-13] MEDS: Mirtazapine 15 MG TAB PO SCH (20:01)
[2018-03-13] MEDS: Enoxaparin Sodium 30 MG/0.3 ML SYRINGE SC SCH (22:33)
[2018-03-14] MEDS: MEROPENEM 1 GM/50 ML 1 GM in Premix Bag 1 BAG IVPB SCH ×2 (00:11→12:02)
[2018-03-14] MEDS: Sodium Chloride 0.9% 1,000 ML IV SCH ×2 (01:30→08:26)
[2018-03-14] MEDS: Acetaminophen 325 MG TAB PO PRN (02:05)
[2018-03-14] MEDS: Levothyroxine Sodium 50 MCG TAB PO SCH ×2 (06:07→23:21)
[2018-03-14] MEDS: Mometasone/Formoterol 120 PUFF INHALER INH SCH ×2 (06:51→19:14)
[2018-03-14] MEDS: Ferrous Sulfate 325 MG TAB PO SCH ×2 (08:11→18:12)
[2018-03-14] MEDS: Acetaminophen 500 MG TAB PO SCH ×2 (08:11→21:25)
[2018-03-14] MEDS: Ascorbic Acid 500 mg Chewable Tablet PO SCH (08:12)
[2018-03-14] MEDS: busPIRone HCl 5 MG TAB PO SCH ×2 (08:12→21:26)
[2018-03-14] MEDS: Lisinopril 10 MG TAB PO SCH (08:13)
[2018-03-14] MEDS: Carvedilol 6.25 MG TAB PO SCH ×2 (08:13→21:26)
[2018-03-14] MEDS: Calcium Carbonate + Vit D 1 TAB PO SCH ×2 (08:14→21:26)
[2018-03-14] MEDS: Estradiol 0.01% Vaginal Cream 42.5 gm Tube VAG SCH (08:15)
[2018-03-14] MEDS: Fluticasone Propionate Nasal Spray 16 gm Bottle NASAL SCH (08:16)
[2018-03-14] MEDS: Latanoprost 0.005% Ophth Soln 2.5 ml Bottle EA EYE SCH (08:17)
[2018-03-14] MEDS: Polyethylene Glycol 3350 17 GM Packet PO SCH (08:18)
[2018-03-14 09:49] LABS: #Eosinphils 0.3 thou/uL (0.0-0.7); #Monocytes 0.6 thou/uL (0.11-0.59); #Neutrophils 2.6 thou/uL (1.40-6.50); %Basophils 0.6 % (0.0-1.0); %Eosinophils 7.5 % (0.0-10.0); %Lymphocytes 22.1 % (21.0-51.0); %Monocytes 12.2 % (0.0-10.0); %Neutrophils 57.6 % (42.0-75.0); Hemoglobin 10.4 g/dL (12.0-16.0); Mean Corpuscular HGB CONC 32.6 g/dL (32.0-36.0); Mean Corpuscular Hemoglobin 32.4 pg (27.0-31.0); Mean Corpuscular Volume 99.5 fL (78.0-98.0); Mean Platelet Volume 6.1 fL (7.4-10.4); Platelet Count 331 thou/uL (130-400); RBC Distribution Width 18.7 % (11.5-14.5); White Blood Cell (WBC) Count 4.6 thou/uL (4.8-10.8)
--- NOTE | 2018-03-14 13:29 | PRG ---
DATE OF SERVICE: 03/14/2018 SUBJECTIVE: The patient is sitting up at bedside in big chair. She has no complaint. She denies an y nausea, vomiting, or abdominal pain. No visible gastrointestinal bleeding seen by the patient. PHYSICAL EXAMINATION: VITAL SIGNS: Temperature is 97.3, blood pressure 151/68, pulse of 78. GENERAL: She is alert, conversant without any distress. HEENT: Shows anicteric sclerae. NECK: Supple. CARDIOVASCULAR: Shows normal S1, S2, regular rate and rhythm. CHEST: Shows normal breath sounds. ABDOMEN: Soft, nontender, no distention. She has active bowel sounds. EXTREMITIES: Did not show any edema. LABORATORY DATA: WBC is 4.6, hemoglobin 10.4 (1 unit given up from hemoglobin of 7.6), platelet coun t of 331. ASSESSMENT: 1. History of deep venous thrombosis, status post inferior vena cava filter placement. The patient had severe anemia on Eliquis, which has since been discontinued. 2. Chronic obstructive pulmonary disease. 3. History of gastric arteriovenous malformation in 2007. RECOMMENDATIONS: 1. The patient did have a drop of her blood count, status post 1 unit transfusion with more than exp ected rise. 2. The patient's respiratory status has improved. Given her history of prior gastric AVM, I would r ecommend doing an upper endoscopy prior to discharge. Of note, her colonoscopy was normal in 08/2016 . We will schedule for tomorrow since the patient has been on a diet today.
--- NOTE | 2018-03-14 13:40 | PDOC.PN ---
- Subjective Encounter Start Date: 03/14/18 Encounter Start Time: 11:45 Subjective: pt up in bed no complains - Objective Resuscitation Status: Resuscitation Status DNR:Do Not Resuscitate Vital Signs & Weight: Vital Signs (12 hours) Temp Pulse Resp BP BP BP Pulse Ox 03/14/18 11:53 97.3 F L 78 18 151/68 H 95 03/14/18 08:13 175/78 H 03/14/18 08:00 98.4 F 80 18 175/78 H 80 L 03/14/18 07:39 98.4 F 80 18 175/78 H 97 03/14/18 06:51 88 14 94 L 03/14/18 04:00 97.6 F 70 20 159/95 H 100 Weight Weight 115 lb 6.4 oz I&O: 03/13/18 03/14/18 03/15/18 06:59 06:59 06:59 Intake Total 1450 800 360 Balance 1450 800 360 Result Diagrams: 03/14/18 09:25 03/13/18 04:11 Phys Exam - Physical Examination Respiratory: no wheezing, no rales, no rhonchi, wheezing present, clear to auscultation bilateral Cardiovascular: RRR, no significant murmur, no rub, gallop, irregular Gastrointestinal: soft, non-tender, no distention, positive bowel sounds Musculoskeletal: no edema, pulses present, edema present Dx/Plan (1) Anemia due to acute blood loss Code(s): D62 - ACUTE POSTHEMORRHAGIC ANEMIA Status: Acute Comment: FOBT positive but history of Internal hemmorhoids (2) UTI (urinary tract infection) Status: Acute Comment: E.coli resistant to Quinolones.Pt allergic to PCN (3) DVT (deep venous thrombosis) Code(s): I82.409 - ACUTE EMBOLISM AND THOMBOS UNSP DEEP VN UNSP LOWER EXTREMITY Status: Acute Qualifiers: DVT location: lower extremity Affected thrombotic vein of extremity: femoral Chronicity: acute Laterality: right Qualified Code(s): I82.411 - Acute embolism and thrombosis of right femoral vein Comment: nonocclusive - Plan spoke with gi about pt's low hh will get EGD in am -: she got a total of 2u of blood ( one yest) -: she was on asa/eliquis/meloxicam -: abx changed to ceftriaxone * . Review of Systems - Review of Systems Respiratory: negative: Cough, Dry, Shortness of Breath, Hemoptysis, SOB with Excertion, Pleuritic Pain, Sputum, Wheezing Cardiovascular: negative: chest pain, palpitations, orthopnea, paroxysmal nocturnal dyspnea, edema, light headedness, other Gastrointestinal: negative: Nausea, Vomiting, Abdominal Pain, Diarrhea, Constipation, Melena, Hematochezia, Other Genitourinary: negative: Dysuria, Frequency, Incontinence, Hematuria, Retention , Other - Medications/Allergies Allergies/Adverse Reactions: Allergies Allergy/AdvReac Type Severity Reaction Status Date / Time adhesive Allergy Verified 02/17/18 17:23 codeine Allergy Verified 09/04/16 03:52 doxycycline Allergy Verified 09/04/16 03:52 erythromycin base Allergy Verified 09/04/16 03:52 [Erythromycin Base] Latex, Natural Rubber Allergy Verified 09/04/16 03:52 montelukast Allergy Verified 09/04/16 03:52 Penicillins Allergy Verified 02/17/18 17:24 Sulfa (Sulfonamide Allergy Verified 09/04/16 03:52 Antibiotics) Medications: Current Medications Acetaminophen (Tylenol) 650 mg PO Q4H PRN PRN Reason: Headache/Fever or Pain Last Admin: 03/14/18 02:05 Dose: 650 mg Acetaminophen (Tylenol) 1,000 mg PO BID [facility] Last Admin: 03/14/18 08:11 Dose: 1,000 mg Albuterol Sulfate (Proventil Hfa) 2 puff INH Q6H PRN PRN Reason: SOB &/or Wheezing Ascorbic Acid (Vitamin C) 500 mg PO DAILY [facility] Last Admin: 03/14/18 08:12 Dose: 500 mg Azelastine HCl (Azelastine) 0 ml NS PRN PRN PRN Reason: DRAINAGE Buspirone HCl (Buspar) 15 mg PO BID [facility] Last Admin: 03/14/18 08:12 Dose: 15 mg Calcium/Vitamin D (Caltrate 600 + Vit D) 1 tab PO BID [facility] Last Admin: 03/14/18 08:14 Dose: 1 tab Carvedilol (Coreg) 6.25 mg PO BID [facility] Last Admin: 03/14/18 08:13 Dose: 6.25 mg Enoxaparin Sodium (Lovenox) 30 mg SC 2100 [facility] Last Admin: 03/13/18 22:33 Dose: 30 mg Estradiol (Estrace 0.01% Vaginal Cream) 0 gm VAG DAILY [facility] Last Admin: 03/14/18 08:15 Dose: 42.5 gm Ferrous Sulfate (Feosol) 325 mg PO BID-[facility] Last Admin: 03/14/18 08:11 Dose: 325 mg Fluticasone Propionate (Flonase Nasal [place]) 0 gm NASAL DAILY [facility] Last Admin: 03/14/18 08:16 Dose: 1 spr Ceftriaxone Sodium 1 gm/ (Sodium Chloride) 100 mls @ 200 mls/hr IVPB 1400 [facility] Latanoprost (Xalatan 0.005% Oph Soln) 1 drop EA EYE DAILY [facility] Last Admin: 03/14/18 08:17 Dose: 1 drop Levothyroxine Sodium (Synthroid) 50 mcg PO 0600 [facility] Last Admin: 03/14/18 06:07 Dose: 50 mcg Lisinopril (Zestril) 10 mg PO DAILY [facility] Last Admin: 03/14/18 08:13 Dose: 10 mg Mirabegron (Myrbetriq Er) 50 mg PO DAILY [facility] Last Admin: 03/14/18 08:18 Dose: 50 mg Mirtazapine (Remeron) 15 mg PO HS [facility] Last Admin: 03/13/18 20:01 Dose: 15 mg Mometasone Furoate/Formoterol Fumar (Dulera 200 Mcg/5 Mcg Inhaler) 2 puff INH BID-RT [facility] Last Admin: 03/14/18 06:51 Dose: 2 puff Ondansetron HCl (Zofran) 4 mg IVP Q6H PRN PRN Reason: Nausea/Vomiting Pantoprazole Sodium (Protonix) 40 mg PO BID [facility] Last Admin: 03/14/18 08:13 Dose: 40 mg Ospemifene [Osphena] (60 Mg) 0 each PO DAILY [facility] Polyethylene Glycol (Miralax) 17 gm PO DAILY [facility] Last Admin: 03/14/18 08:18 Dose: 17 gm Quetiapine Fumarate (Seroquel) 50 mg PO HS [facility] Last Admin: 03/13/18 20:00 Dose: 50 mg Sodium Chloride (Flush - Normal Saline) 10 ml IVF Q12HR [facility] Last Admin: 03/14/18 08:19 Dose: 10 ml Sodium Chloride (Flush - Normal Saline) 10 ml IVF PRN PRN PRN Reason: Saline Flush
[2018-03-14] MEDS: cefTRIAXone\\ROCEPHIN 1 GM in Sodium Chloride 0.9% 100 ML IVPB SCH (13:53)
--- NOTE | 2018-03-14 18:01 | PRG ---
DATE OF SERVICE: 03/14/2018 SUBJECTIVE: Ms. Pineda is doing well. She has no complaints. Hemoglobin today was 10.4. OBJECTIVE: LUNGS: Clear. HEART: Regular rhythm. ABDOMEN: Soft. EXTREMITIES: She has no lower extremity asymmetry. EGD is planned for tomorrow.
[2018-03-14] MEDS: Enoxaparin Sodium 30 MG/0.3 ML SYRINGE SC SCH (21:27)
[2018-03-14] MEDS: Mirtazapine 15 MG TAB PO SCH (21:27)
[2018-03-15 04:45] LABS: Platelet Count 311 thou/uL (130-400)
[2018-03-15] MEDS: Carvedilol 6.25 MG TAB PO SCH ×2 (05:10→20:45)
[2018-03-15] MEDS: Mometasone/Formoterol 120 PUFF INHALER INH SCH ×2 (06:01→17:52)
[2018-03-15] MEDS: Ferrous Sulfate 325 MG TAB PO SCH ×3 (08:07→17:04)
[2018-03-15] MEDS ORDERED: Promethazine HCl 25 MG/ML VIAL SLOW IVP PRN (08:56)
[2018-03-15] MEDS ORDERED: Promethazine HCl 25 MG/ML VIAL IM PRN (08:56)
[2018-03-15] MEDS ORDERED: Ondansetron HCl/PF 4 MG/2 ML Vial IVP PRN (08:56)
[2018-03-15] MEDS: Acetaminophen 500 MG TAB PO SCH ×2 (10:27→21:14)
[2018-03-15] MEDS: Ascorbic Acid 500 mg Chewable Tablet PO SCH (10:28)
[2018-03-15] MEDS: busPIRone HCl 5 MG TAB PO SCH ×2 (10:28→20:44)
[2018-03-15] MEDS: Calcium Carbonate + Vit D 1 TAB PO SCH ×2 (10:29→20:45)
[2018-03-15] MEDS: Lisinopril 10 MG TAB PO SCH (10:30)
[2018-03-15] MEDS: Levothyroxine Sodium 50 MCG TAB PO SCH (10:30)
[2018-03-15] MEDS: Latanoprost 0.005% Ophth Soln 2.5 ml Bottle EA EYE SCH (10:31)
[2018-03-15] MEDS: Fluticasone Propionate Nasal Spray 16 gm Bottle NASAL SCH (10:31)
[2018-03-15] MEDS: Estradiol 0.01% Vaginal Cream 42.5 gm Tube VAG SCH (10:34)
[2018-03-15] MEDS: Polyethylene Glycol 3350 17 GM Packet PO SCH (10:34)
--- NOTE | 2018-03-15 11:08 | OP ---
DATE OF PROCEDURE: 03/15/2018 PROCEDURE: Esophagogastroduodenoscopy with control of hemorrhage. PREOPERATIVE DIAGNOSIS: Anemia of acute blood loss. OPERATIVE NOTE: Informed consent was obtained. The patient was sedated with total intravenous anest hesia. The bite block was placed and the endoscope was advanced easily to the second portion of the duodenum and retroflexion was performed in the stomach. The esophagus was normal. The GE junction w as normal. There was a 2 mm red spot in the antrum, which was cauterized with argon plasma coagulati on. There was a 2 mm arteriovenous malformation in the bulb of the duodenum. This was cauterized wi th argon plasma coagulation. This did bleed significantly on first touch and good hemostasis was con firmed with electrocautery with argon plasma coagulation. A second 2 mm AVM was cauterized in the se cond portion of the duodenum. The remainder of the gastric and duodenal mucosa was normal. IMPRESSION: 1. Two small 2 mm vascular ectasias in the first and second portions of the duodenum, cauterized wit h argon plasma coagulation. 2. One small vascular ectasia in the gastric antrum, cauterized with argon plasma coagulation. RECOMMENDATIONS: 1. Follow trend of the hemoglobin. 2. Proton pump inhibitor daily.
[2018-03-15] MEDS ORDERED: PROPOFOL 200 MG/20 ML VIAL ONE (13:24)
[2018-03-15] MEDS ORDERED: Lidocaine 1% PF 5 ML VIAL ONE (13:24)
--- NOTE | 2018-03-15 13:55 | PDOC.PN ---
- Subjective Encounter Start Date: 03/15/18 Encounter Start Time: 13:54 Feels well. No complaints. Tolerated the EGD well. Wants to change her code status back to Full Code. - Objective Resuscitation Status: Resuscitation Status DNR:Do Not Resuscitate Vital Signs & Weight: Vital Signs (12 hours) Temp Pulse Resp BP BP Pulse Ox 03/15/18 12:00 98.6 F 90 16 182/83 H 97 03/15/18 10:43 92 181/71 H 03/15/18 10:30 181/74 H 03/15/18 10:00 97.9 F 87 16 182/83 H 97 03/15/18 07:40 94 L 03/15/18 07:30 99.0 F 82 16 161/64 H 94 L 03/15/18 06:01 85 14 94 L 03/15/18 05:10 176/74 H Weight Weight 115 lb 6.4 oz I&O: 03/14/18 03/15/18 03/16/18 06:59 06:59 06:59 Intake Total 800 1950 240 Balance 800 1950 240 Result Diagrams: 03/15/18 03:54 03/15/18 03:54 Phys Exam - Physical Examination Constitutional: NAD Respiratory: no wheezing, no rales, no rhonchi, clear to auscultation bilateral Cardiovascular: RRR, no significant murmur, no rub Gastrointestinal: soft, non-tender, no distention, positive bowel sounds Musculoskeletal: no edema Dx/Plan (1) H/O deep venous thrombosis Code(s): Z86.718 - PERSONAL HISTORY OF OTHER VENOUS THROMBOSIS AND EMBOLISM Status: Acute (2) UTI (urinary tract infection) Status: Acute Comment: E.coli resistant to Quinolones.Pt allergic to PCN (3) CKD (chronic kidney disease) stage 3, GFR 30-59 ml/min Code(s): N18.3 - CHRONIC KIDNEY DISEASE, STAGE 3 (MODERATE) Status: Chronic (4) Anemia due to acute blood loss Code(s): D62 - ACUTE POSTHEMORRHAGIC ANEMIA Status: Acute (5) DVT (deep venous thrombosis) Code(s): I82.409 - ACUTE EMBOLISM AND THOMBOS UNSP DEEP VN UNSP LOWER EXTREMITY Status: Acute Qualifiers: DVT location: lower extremity Affected thrombotic vein of extremity: femoral Chronicity: acute Laterality: right Qualified Code(s): I82.411 - Acute embolism and thrombosis of right femoral vein Comment: nonocclusive (6) GI bleed Code(s): K92.2 - GASTROINTESTINAL HEMORRHAGE, UNSPECIFIED Status: Acute (7) Generalized weakness Code(s): R53.1 - WEAKNESS Status: Acute Comment: OT/PT - Plan * Continue to monitor. If hgb ok in am can likely discharge to home. Continue IV abx for now.
[2018-03-15] MEDS: cefTRIAXone\\ROCEPHIN 1 GM in Sodium Chloride 0.9% 100 ML IVPB SCH (14:20)
--- NOTE | 2018-03-15 19:46 | PRG ---
DATE OF SERVICE: 03/15/2018 SUBJECTIVE: Ms. Pineda underwent upper endoscopy. She had 3 AV malformations/vascular ectasias cau terized. Her hemoglobin is stable, it was 10.4 yesterday, 10.0 today. She says she feels fine and w ants to go home. OBJECTIVE: LUNGS: Clear. HEART: Regular rhythm. ABDOMEN: Soft. IMPRESSION: 1. Gastrointestinal blood loss, aggravated by anticoagulation after a deep vein thrombosis. 2. Status post inferior vena cava filter. 3. Status post cauterization of vascular ectasias. PLAN: I would recommend that she be discharged home for close outpatient followup of her hemoglobin. There is really no reason to keep her in the hospital after today in my opinion.
[2018-03-15] MEDS: Mirtazapine 15 MG TAB PO SCH (20:44)
[2018-03-15] MEDS: Enoxaparin Sodium 30 MG/0.3 ML SYRINGE SC SCH (20:56)
[2018-03-16 05:08] LABS: #Basophils 0.1 thou/uL (0.0-0.2); #Eosinphils 0.3 thou/uL (0.0-0.7); #Monocytes 0.9 thou/uL (0.11-0.59); %Basophils 1.2 % (0.0-1.0); %Eosinophils 4.4 % (0.0-10.0); %Neutrophils 54.4 % (42.0-75.0); Hemoglobin 9.9 g/dL (12.0-16.0); Mean Corpuscular HGB CONC 32.4 g/dL (32.0-36.0); Mean Corpuscular Hemoglobin 32.4 pg (27.0-31.0); Mean Platelet Volume 6.7 fL (7.4-10.4); Platelet Count 294 thou/uL (130-400); RBC Distribution Width 17.7 % (11.5-14.5); Red Blood Cell (RBC) Count 3.05 mill/uL (4.20-5.40); White Blood Cell (WBC) Count 7.3 thou/uL (4.8-10.8)
[2018-03-16] MEDS: Levothyroxine Sodium 50 MCG TAB PO SCH (05:36)
[2018-03-16] MEDS: Mometasone/Formoterol 120 PUFF INHALER INH SCH (06:56)
[2018-03-16 07:13] VITALS: TEMP 98.5
[2018-03-16] MEDS: Carvedilol 6.25 MG TAB PO SCH (09:19)
[2018-03-16] MEDS: busPIRone HCl 5 MG TAB PO SCH (09:20)
[2018-03-16] MEDS: Ferrous Sulfate 325 MG TAB PO SCH ×2 (09:21→15:55)
[2018-03-16] MEDS: Ascorbic Acid 500 mg Chewable Tablet PO SCH (09:22)
[2018-03-16] MEDS: Lisinopril 10 MG TAB PO SCH (09:22)
[2018-03-16] MEDS: Calcium Carbonate + Vit D 1 TAB PO SCH (09:23)
[2018-03-16] MEDS: Acetaminophen 500 MG TAB PO SCH (09:23)
[2018-03-16] MEDS: Estradiol 0.01% Vaginal Cream 42.5 gm Tube VAG SCH (09:27)
[2018-03-16] MEDS: Fluticasone Propionate Nasal Spray 16 gm Bottle NASAL SCH (09:27)
[2018-03-16] MEDS: Latanoprost 0.005% Ophth Soln 2.5 ml Bottle EA EYE SCH (09:28)
[2018-03-16] MEDS: Polyethylene Glycol 3350 17 GM Packet PO SCH (09:30)
--- NOTE | 2018-03-16 13:14 | PRG ---
DATE OF SERVICE: 03/16/2018 SUBJECTIVE: Ms. Pineda has no abdominal pain. She has had no overt bleeding. She is tolerating he r solid diet well. OBJECTIVE: VITAL SIGNS: Temperature is 98.5, blood pressure 148/64, pulse 80. GENERAL: She is in no acute distress, awake and alert. LUNGS: Clear to auscultation bilaterally. HEART: Regular rate and rhythm. ABDOMEN: Soft, nontender, nondistended. Bowel sounds are present. EXTREMITIES: No lower extremity edema. LABORATORY DATA: Her hemoglobin is stable at 9.9. IMPRESSION: 1. Anemia of acute blood loss and chronic blood loss while on chronic anticoagulation. Her anticoag ulation has been discontinued and she has an IVC filter in place now. 2. Three small vascular ectasias cauterized in the stomach and duodenum yesterday. She has no evide nce of overt bleeding now. RECOMMENDATIONS: 1. Proton pump inhibitor daily. 2. No further GI intervention should be necessary at this point. I will sign off. Please call if G I can be of assistance.
[2018-03-16] MEDS: cefTRIAXone\\ROCEPHIN 1 GM in Sodium Chloride 0.9% 100 ML IVPB SCH (14:58)
[2018-03-16 15:18] VITALS: BP 139/67
--- NOTE | 2018-03-17 16:29 | EKG ---
Test Reason : WEAKNESS Blood Pressure : / mmHG Vent. Rate : 092 BPM Atrial Rate : 092 BPM P-R Int : 156 ms QRS Dur : 068 ms QT Int : 360 ms P-R-T Axes : 064 023 054 degrees QTc Int : 445 ms Normal sinus rhythm Normal ECG Confirmed by DORY YORK [id number]), editorial project manager RAMIRO KING ([id number] on 03/17/2018 4:29:44 PM Referred By: Confirmed By:DORY YORK
== END 2018-03-16 17:29 | disposition home health service (06) | DRG 803 ==
LOC: ERS 16:45 → IMCU/EMU 18:53 → T4-B 03-10 14:45
PROVIDERS: ADMIT Internal Medicine; ATTEND Internal Medicine
PROC: 06H03DZ Insertion of Intraluminal Device into Inferior Vena Cava, Percutaneous Approach (ICD-10-PCS; principal; 2018-03-12)
PROC: 30233N1 Transfusion of Nonautologous Red Blood Cells into Peripheral Vein, Percutaneous Approach (ICD-10-PCS; 2018-03-13)
PROC: 0W3P8ZZ Control Bleeding in Gastrointestinal Tract, Via Natural or Artificial Opening Endoscopic (ICD-10-PCS; 2018-03-15)
DX: D62 Acute posthemorrhagic anemia (principal); N39.0 Urinary tract infection, site not specified; I13.0 Hypertensive heart and chronic kidney disease with heart failure and stage 1 through stage 4 chronic kidney disease, or unspecified chronic kidney disease; I50.32 Chronic diastolic (congestive) heart failure; I82.411 Acute embolism and thrombosis of right femoral vein; K92.2 Gastrointestinal hemorrhage, unspecified; E44.0 Moderate protein-calorie malnutrition; Z68.1 Body mass index [BMI] 19.9 or less, adult; E87.1 Hypo-osmolality and hyponatremia; N17.9 Acute kidney failure, unspecified; Z66 Do not resuscitate; Z86.718 Personal history of other venous thrombosis and embolism; B96.20 Unspecified Escherichia coli [E. coli] as the cause of diseases classified elsewhere; Z16.23 Resistance to quinolones and fluoroquinolones; N18.3 Chronic kidney disease, stage 3 (moderate); F41.9 Anxiety disorder, unspecified; F32.9 Major depressive disorder, single episode, unspecified; G30.9 Alzheimer's disease, unspecified; F02.80 Dementia in other diseases classified elsewhere, unspecified severity, without behavioral disturbance, psychotic disturbance, mood disturbance, and anxiety; J44.9 Chronic obstructive pulmonary disease, unspecified; K21.9 Gastro-esophageal reflux disease without esophagitis; H40.9 Unspecified glaucoma; E03.9 Hypothyroidism, unspecified; E78.5 Hyperlipidemia, unspecified; D63.1 Anemia in chronic kidney disease; Z91.81 History of falling; Z79.01 Long term (current) use of anticoagulants; Z87.442 Personal history of urinary calculi; Q27.33 Arteriovenous malformation of digestive system vessel; T45.515A Adverse effect of anticoagulants, initial encounter
CPT/HCPCS: 36415; 36430; 37191; 51701; 74177; 76942; 80048; 80053; 81001; 81015; 82274; 82553; 82565; 82607; 84443; 84484; 85014; 85018; 85025; 85046; 85049; 85610; 85730; 86850; 86900; 86901; 86904; 86922; 87077; 87086; 87186; 93005; 93970; 96365; 96375; A4216; A4353; C1769; G8978-GP-CK; G8979-GP-CK; G8980-GP-CK; G8987-GO-CI; G8988-GO-CI; G8989-GO-CI; J0696; J1200; J1644; J1650; J1956; J2001; J2185; J2250; J2704; J2930; J7050; P9016

== ENCOUNTER 2018-07-24 13:02 | Outpatient (CLI) | payer MEDICARE, BC ==
--- NOTE | 2018-07-24 14:39 | ULT ---
ULTRASOUND BLADDERE: Date: 07/24/18 HISTORY: Post-void residual evaluation, urinary retention. FINDINGS/IMPRESSION: Pre-void urinary bladder volume is 55 mL with a post-void residual of 1 mL. POS: OFF
== END 2018-07-24 13:03 | disposition home or self-care (01) ==
LOC: BICULT 13:02
PROVIDERS: ATTEND Internal Medicine Infectious Disease
DX: N39.0 Urinary tract infection, site not specified (principal)
CPT/HCPCS: 76856

== ENCOUNTER 2018-09-20 19:13 | Inpatient (IN) | payer MEDICARE, BC ==
--- NOTE | 2018-09-20 20:22 | RAD ---
PORTABLE CHEST ONE VIEW: 09/20/18 at 9:?13 p.m. HISTORY: Generalized weakness and lethargy. FINDINGS: Comparison made with exam of 02/19/18. The heart size is normal. The aorta is tortuous. There is scarring in the lung apices. No focal areas of consolidation, pneumothoraces or pleural effusions are seen. IMPRESSION: No radiographic evidence of acute cardiopulmonary process. POS: [facility]
[2018-09-20 20:45] LABS: #Eosinphils 0.1 thou/uL (0.0-0.7); #Lymphocytes 1.6 thou/uL (1.20-3.40); #Monocytes 0.9 thou/uL (0.11-0.59); #Neutrophils 4.9 thou/uL (1.40-6.50); %Basophils 0.6 % (0.0-1.0); %Eosinophils 1.6 % (0.0-10.0); %Lymphocytes 21.4 % (21.0-51.0); %Monocytes 11.3 % (0.0-10.0); %Neutrophils 65.1 % (42.0-75.0); Mean Corpuscular HGB CONC 33.6 g/dL (32.0-36.0); Mean Platelet Volume 5.8 fL (7.4-10.4); Platelet Count 387 thou/uL (130-400); Red Blood Cell (RBC) Count 2.92 mill/uL (4.20-5.40); White Blood Cell (WBC) Count 7.5 thou/uL (4.8-10.8)
[2018-09-20 21:05] LABS: ALT (SGPT) 15 U/L (8-55); AST (SGOT) 25 U/L (5-34); Alkaline Phosphatase 88 U/L (40-150); Anion Gap 14 mmol/L (10-20); BUN (Urea Nitrogen) 34 mg/dL (9.8-20.1); Bilirubin, Total 0.3 mg/dL (0.2-1.2); Calc. Creatinine Clearance 0 mL/min (70-130); Calcium 9.5 mg/dL (7.8-10.44); Carbon Dioxide 23 mmol/L (23-31); Chloride 93 mmol/L (98-107); Estimated GFR-MDRD 50; Globulin 3.4 g/dL (2.4-3.5); Glucose 108 mg/dL (83-110); Lipase 49 U/L (8-78); Potassium 4.3 mmol/L (3.5-5.1); Protein, Total 7.4 g/dL (6.0-8.3); Sodium 126 mmol/L (136-145)
[2018-09-20] MEDS ORDERED: methylPREDNISolone Sod Succ/PF 125 MG/2 ML VIAL ONE (23:06)
--- NOTE | 2018-09-20 23:11 | CT ---
CT BRAIN WITHOUT CONTRAST: 09/20/18 HISTORY: Weakness, injury. FINDINGS: Comparison made with exam of 05/25/16. Changes of cortical atrophy. 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 The ventricular size is stable and the basilar cisterns patent. No evidence of acute infarct, hemorrhage, midline shift, or abnormal extra-axial fluid collections ar e seen. 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 The bony calvari um is intact. The visualized paranasal sinuses and mastoid air cells are well aerated. IMPRESSION: Stable exam. No CT evidence for acute intracranial process. POS: [facility]
[2018-09-20 23:56] LABS: Bilirubin Negative (Negative); Blood, Urine Small (Negative); Clarity CLEAR (Clear); Glucose, Urine (Dipstick) Negative (Negative); Leukocyte Small (Negative); Nitrite Negative (Negative); Protein, Urine (Dipstick) Negative (Neg-Trace); Specific Gravity, Urine 1.011 (1.002-1.036); Urobilinogen 0.2 mg/dL (0.2-1.0); pH, Urine 6.5 (5.0-9.0)
[2018-09-20 23:59] LABS: Bacteria/HPF None Seen HPF (None Seen); Hyaline Casts/LPF 4-6 HYALINE CAST LPF (0-3 Hyaline); Pathc Cast-AUWi Flag 0.95 (0-2.49); Squamous Epithelial 0-3 HPF (0-3)
[2018-09-21 00:05] LABS: Renal Epithelial None Seen HPF (0-3); Transitional Epithelial NONE SEEN HPF (0-3)
[2018-09-21] MEDS ORDERED: hydrALAZINE 20 MG/ML VIAL SLOW IVP PRN (01:37)
[2018-09-21] MEDS ORDERED: Vancomycin HCl 1 GM in Premix Bag 1 BAG IVPB SCH (02:00)
[2018-09-21 03:05] VITALS: BMI 20.6
[2018-09-21] MEDS: Levothyroxine Sodium 50 MCG TAB PO SCH (05:15)
[2018-09-21] MEDS: Vancomycin HCl 750 MG in Sodium Chloride 0.9% 250 ML 250 ML IVPB SCH (05:15)
--- NOTE | 2018-09-21 05:16 | HP ---
CHIEF COMPLAINT: Weakness. HISTORY OF PRESENT ILLNESS: This patient is an 88-year-old female who presented via the emergency department. The patient's family was present on presentation and indicated the patient had about 2 weeks of weakness prior to presenting today. Today, apparently, it was worse and that prompted the visit to the emergency department. They report that she has actually fallen a couple of times in the last 3 weeks including September 03 and September 10. They felt the patient appeared to be generally pale. The patient reported some dyspnea and some cough. The family indicated she was supposed to be taking some Symbicort and a rescue inhaler when she had episodes of shortness of breath, but she had not been compliant with that. At the time of my exam, the patient unfortunately is near deaf and is unable to communicate effectively even with me being as loud as I can manage. She does indicate to me that she is having some discomfort. She indicates the discomfort is in her lower abdomen and pelvic area. Cannot elucidate when this exactly started. REVIEW OF SYSTEMS: Cannot be obtained at the moment due to the patient's history of some dementia and her profound hearing loss. 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 She also has a history of DVT as mentioned, recurrent urinary tract infections, seen by Dr. Castañeda. Generalized weakness, chronic kidney disease, stage III, Alzheimer's dementia, anxiety and depression, congestive heart failure, COPD, GERD, glaucoma, hypertension, hypothyroidism, and some protein-calorie malnutrition. Looking at her previous visits in the electronic record system, she has had labs and a bladder ultrasound obtained with the diagnosis of lower pelvic pain and urinary urgency done last month by her PCP, Dr. Dawson suggesting that this pelvic pain is not necessarily acute. FAMILY HISTORY: Cannot be obtained at the moment and records indicate that she did not have any significant contributory medical problems previously. SOCIAL HISTORY: No smoking or drugs. She did have a history of drinking socially and living at home with her family. Her code status is not known at the moment. We will leave her full code until we can reach family. In previous admissions, the patient has been a DNR. Her daughter, Ms. Minor at [phone] and [phone] is apparently her power of commonwealth attorney, so we will attempt to reach out to her in the middle of the night if that becomes necessary, but for now, the patient appears to be otherwise stable. We will defer that until first thing in the morning. ALLERGIES: ADHESIVES, CODEINE, DOXYCYCLINE, ERYTHROMYCIN, MONTELUKAST, PENICILLIN, SULFA. HOME MEDICATIONS: 1. Mirtazapine 15 mg at bedtime. 2. Levothyroxine 50 mcg p.o. daily. 3. Tylenol 500 mg b.i.d. 4. Coreg 6.25 b.i.d. 5. Seroquel 50 mg daily. 6. Meloxicam 15 mg daily. 7. BuSpar 15 mg b.i.d. 8. Lisinopril 10 mg daily. 9. Lasix 20 mg daily. 10. Iron sulfate 325 p.o. daily. 11. Glucosamine 1000 mg daily. 12. Symbicort 160/4.5, dosing regimen is not known. 13. Azelastine nasal spray 137 mcg, dosing regimen known. 14. ProAir HFA 90 mcg inhaled q.4 hours p.r.n. 15. Caltrate 600 mg/1500 mg p.o. daily. 16. Aspirin 81 mg daily. 17. Eliquis 2.5 mg b.i.d. PHYSICAL EXAMINATION: VITAL SIGNS: BP 170/96, pulse 93, respirations 18, temperature 98.1, O2 saturation 99% on 2 L. while in the room, the patient was expressing some discomfort. Her blood pressure increased to 190/100. GENERAL APPEARANCE: At the time of my exam, the patient appears to be slightly uncomfortable. She is awake, profoundly hard of hearing. HEENT: PERRL. No OP lesions. NECK: Supple and symmetric. HEART: Regular without murmurs. LUNGS: Clear to auscultation bilaterally with good chest wall expansion and air exchange. ABDOMEN: Soft, nontender, and nondistended. She does have some tenderness to palpation in the pelvic area without significant guarding or rebound. EXTREMITIES: No cyanosis, clubbing, or edema. Her feet are slightly cool to touch with diminished pulses. SKIN: Warm and dry, otherwise. LABORATORY DATA: White count 7.5, hemoglobin 10, platelets 387. Sodium 126, potassium 4.3, chloride 93, BUN 34, creatinine 1.04, lactic acid 1.3. AST is 25, ALT 15, troponin is less than 0.01. Urinalysis shows small blood, small leukocyte esterase, 11-20 white cells. Flu screen is negative. Chest x-ray negative. Head CT negative. Urine cultures obtained as an outpatient yesterday growing enterococcus. IMPRESSION AND PLAN: 1. Urinary tract infection. The patient has a history of recurrent urinary tract infections. She appears to be systematically symptomatic and is growing enterococcus from an outpatient culture from yesterday. We will go ahead and cover with the vancomycin. She has already received Levaquin in the emergency department. We will need to follow up on her sensitivities. 2. Pelvic pain of unclear etiology. The patient has had this apparently for a little while. Bladder scan was obtained and revealed urine content of 113 mL. Therefore, no Johnson catheter was placed. She appeared to tolerate the bladder scan better than she tolerated my exam. 3. Hyponatremia, chronic. No specific intervention indicated at the moment. 4. Chronic kidney disease stage 3. Her creatinine is actually better than her overall average over previous visits. 5. Hypertension. The patient's blood pressure has come up. The nurse reports that she has become more agitated since her family left. We will continue with her usual home medical regimen and add p.r.n. for severe elevations. 6. History of prior deep venous thrombosis. We will hold off on resuming her Eliquis for now until we can confirm that she is in fact on it as she did have some anemia while on it in the past and it is unclear to me that she is to be taking that now. 7. Hypothyroidism. Continue with her usual home regimen. 8. Prior history of chronic obstructive pulmonary disease. We will continue with the nebulizer treatments. The patient did report some shortness of breath and cough. In the emergency department, she has a negative chest x-ray. She did receive a dose of Solu-Medrol, but I will not continue that for now. Job ID: [id number]
[2018-09-21 06:09] LABS: #Neutrophils 5.9 thou/uL (1.40-6.50); %Eosinophils 0.4 % (0.0-10.0); %Lymphocytes 14.2 % (21.0-51.0); %Monocytes 0.4 % (0.0-10.0); Hemoglobin 11.2 g/dL (12.0-16.0); Mean Corpuscular Hemoglobin 34.3 pg (27.0-31.0); Mean Platelet Volume 6.1 fL (7.4-10.4); Platelet Count 387 thou/uL (130-400); RBC Distribution Width 11.9 % (11.5-14.5); Red Blood Cell (RBC) Count 3.27 mill/uL (4.20-5.40); White Blood Cell (WBC) Count 6.9 thou/uL (4.8-10.8)
[2018-09-21 06:40] LABS: Anion Gap 17 mmol/L (10-20); BUN (Urea Nitrogen) 32 mg/dL (9.8-20.1); Calc. Creatinine Clearance 31 mL/min (70-130); Calcium 9.9 mg/dL (7.8-10.44); Carbon Dioxide 19 mmol/L (23-31); Chloride 95 mmol/L (98-107); Estimated GFR-MDRD 49; Glucose 176 mg/dL (83-110); Sodium 127 mmol/L (136-145)
[2018-09-21] MEDS: Carvedilol 6.25 MG TAB PO SCH ×2 (08:12→16:13)
[2018-09-21] MEDS: Aspirin 81 mg Enteric Coated Tablet PO SCH (08:12)
[2018-09-21] MEDS: Lisinopril 10 MG TAB PO SCH (08:12)
[2018-09-21] MEDS: busPIRone HCl 10 MG TAB PO SCH ×2 (08:12→19:52)
[2018-09-21] MEDS: Azelastine 137 MCG/Spray 30 ML NS SCH (08:15)
[2018-09-21] MEDS ORDERED: Apixaban 2.5 MG TAB PO SCH (09:00)
[2018-09-21] MEDS ORDERED: Prevnar 13-Val Conj/PF 0.5 ML SYRINGE IM ONE (09:00)
[2018-09-21] MEDS: Acetaminophen 325 MG TAB PO PRN (19:52)
[2018-09-21] MEDS ORDERED: Mirtazapine 15 MG Soltab PO SCH (21:00)
[2018-09-21] MEDS: Hydrocortisone 1% Cream 30 GM TUBE TOP SCH (21:37)
[2018-09-22] MEDS: Vancomycin HCl 750 MG in Sodium Chloride 0.9% 250 ML 250 ML IVPB SCH (05:18)
[2018-09-22] MEDS: Levothyroxine Sodium 50 MCG TAB PO SCH (05:18)
[2018-09-22 06:46] LABS: #Eosinphils 0.1 thou/uL (0.0-0.7); #Monocytes 1.3 thou/uL (0.11-0.59); #Neutrophils 7.8 thou/uL (1.40-6.50); %Basophils 0.3 % (0.0-1.0); %Eosinophils 0.9 % (0.0-10.0); %Lymphocytes 18.2 % (21.0-51.0); %Monocytes 11.2 % (0.0-10.0); %Neutrophils 69.4 % (42.0-75.0); Hemoglobin 9.8 g/dL (12.0-16.0); Mean Corpuscular HGB CONC 34.2 g/dL (32.0-36.0); Mean Corpuscular Hemoglobin 34.3 pg (27.0-31.0); Platelet Count 368 thou/uL (130-400); RBC Distribution Width 11.9 % (11.5-14.5); Red Blood Cell (RBC) Count 2.85 mill/uL (4.20-5.40); White Blood Cell (WBC) Count 11.2 thou/uL (4.8-10.8)
[2018-09-22 06:59] LABS: Anion Gap 14 mmol/L (10-20); BUN (Urea Nitrogen) 43 mg/dL (9.8-20.1); Calc. Creatinine Clearance 33 mL/min (70-130); Calcium 9.2 mg/dL (7.8-10.44); Carbon Dioxide 21 mmol/L (23-31); Chloride 97 mmol/L (98-107); Estimated GFR-MDRD 52; Glucose 91 mg/dL (83-110); Potassium 4.3 mmol/L (3.5-5.1); Sodium 128 mmol/L (136-145)
[2018-09-22] MEDS: busPIRone HCl 10 MG TAB PO SCH ×2 (07:58→21:01)
[2018-09-22] MEDS: Lisinopril 10 MG TAB PO SCH (07:58)
[2018-09-22] MEDS: Azelastine 137 MCG/Spray 30 ML NS SCH (07:59)
[2018-09-22] MEDS: Aspirin 81 mg Enteric Coated Tablet PO SCH (07:59)
[2018-09-22] MEDS: Carvedilol 6.25 MG TAB PO SCH ×3 (07:59→21:08)
[2018-09-22] MEDS: Hydrocortisone 1% Cream 30 GM TUBE TOP SCH ×3 (08:00→21:02)
--- NOTE | 2018-09-22 11:26 | PDOC.PN ---
- Subjective Encounter Start Date: 09/22/18 Encounter Start Time: 11:24 Patient seen and examined, no new issues or complaints, all questions answered. - Objective Vital Signs & Weight: Vital Signs (12 hours) Temp Pulse Resp BP BP BP Pulse Ox 09/22/18 11:09 98.4 F 84 19 120/63 92 L 09/22/18 08:00 95 09/22/18 07:59 167/79 H 09/22/18 07:58 167/79 H 09/22/18 07:15 98.4 F 86 19 167/79 H 95 09/22/18 03:25 98.4 F 96 20 154/70 H 95 09/22/18 02:45 94 L Weight Weight 120 lb 5.958 oz I&O: 09/21/18 09/22/18 09/23/18 06:59 06:59 06:59 Intake Total 1950 Balance 1950 Result Diagrams: 09/22/18 06:13 09/22/18 06:13 Phys Exam - Physical Examination Constitutional: NAD HEENT: PERRLA, moist MMs, sclera anicteric Neck: no nodes, no JVD, supple Respiratory: no wheezing, no rales, no rhonchi Cardiovascular: RRR, no significant murmur, no rub Gastrointestinal: soft, non-tender, no distention, positive bowel sounds Musculoskeletal: pulses present, edema present Dx/Plan (1) CHF (congestive heart failure) Code(s): I50.9 - HEART FAILURE, UNSPECIFIED Status: Chronic Comment: diastolic ef 50-55%, class 2 (2) CKD (chronic kidney disease) stage 3, GFR 30-59 ml/min Code(s): N18.3 - CHRONIC KIDNEY DISEASE, STAGE 3 (MODERATE) Status: Chronic (3) COPD (chronic obstructive pulmonary disease) Status: Chronic Qualifiers: Comment: (4) Hypertension Code(s): I10 - ESSENTIAL (PRIMARY) HYPERTENSION Status: Chronic Qualifiers: (5) Hypothyroidism Code(s): E03.9 - HYPOTHYROIDISM, UNSPECIFIED Status: Chronic Qualifiers: - Plan * Breathing much better * DC vanc, cont levaquin for now * will consult PT * patient's daughter states the patient has HHC already set up and they would prefer that the patient come home after discharge and not anothe facility, patient also wishes this to be so * cont current plan with above changes * possible DC in 24-48hrs if patient's status continues to improve * case and plan d/w patient and daughter at length, they understand and agree with this plan.
[2018-09-22] MEDS ORDERED: Mirtazapine 15 MG TAB PO SCH (21:00)
[2018-09-22] MEDS: Acetaminophen 325 MG TAB PO PRN (21:12)
[2018-09-23 01:32] LABS: Hemoglobin 9.3 g/dL (12.0-16.0)
[2018-09-23] MEDS ORDERED: Levothyroxine Sodium 50 MCG TAB PO SCH (06:00)
[2018-09-23] MEDS ORDERED: Levothyroxine Sodium 75 MCG TAB PO SCH (06:00)
[2018-09-23 06:27] LABS: #Basophils 0.1 thou/uL (0.0-0.2); #Eosinphils 0.1 thou/uL (0.0-0.7); #Lymphocytes 1.9 thou/uL (1.20-3.40); #Monocytes 1.1 thou/uL (0.11-0.59); #Neutrophils 6.6 thou/uL (1.40-6.50); %Basophils 0.5 % (0.0-1.0); %Neutrophils 67.5 % (42.0-75.0); Hemoglobin 9.7 g/dL (12.0-16.0); Mean Corpuscular HGB CONC 32.6 g/dL (32.0-36.0); Mean Corpuscular Hemoglobin 33.7 pg (27.0-31.0); Mean Platelet Volume 6.3 fL (7.4-10.4); Platelet Count 348 thou/uL (130-400); RBC Distribution Width 12.1 % (11.5-14.5); Red Blood Cell (RBC) Count 2.87 mill/uL (4.20-5.40); White Blood Cell (WBC) Count 9.7 thou/uL (4.8-10.8)
[2018-09-23 06:46] LABS: Anion Gap 14 mmol/L (10-20); BUN (Urea Nitrogen) 57 mg/dL (9.8-20.1); Calc. Creatinine Clearance 26 mL/min (70-130); Calcium 9.8 mg/dL (7.8-10.44); Carbon Dioxide 24 mmol/L (23-31); Chloride 97 mmol/L (98-107); Estimated GFR-MDRD 39; Glucose 94 mg/dL (83-110); Potassium 4.7 mmol/L (3.5-5.1); Sodium 130 mmol/L (136-145)
[2018-09-23] MEDS: busPIRone HCl 10 MG TAB PO SCH (08:18)
[2018-09-23] MEDS: Carvedilol 6.25 MG TAB PO SCH (08:18)
[2018-09-23] MEDS: Azelastine 137 MCG/Spray 30 ML NS SCH (08:20)
[2018-09-23] MEDS: Hydrocortisone 1% Cream 30 GM TUBE TOP SCH ×2 (08:22→17:04)
[2018-09-23] MEDS: Acetaminophen 325 MG TAB PO PRN (08:37)
[2018-09-23] MEDS ORDERED: Aspirin 81 mg Enteric Coated Tablet PO SCH (09:00)
[2018-09-23] MEDS ORDERED: Furosemide 20 MG TAB PO SCH (09:00)
[2018-09-23] MEDS ORDERED: Lisinopril 10 MG TAB PO SCH (09:00)
--- NOTE | 2018-09-23 11:45 | PDOC.EVN ---
Event Note - Event Note Event Note: DC SUMMARY #[id number]
[2018-09-23 16:29] VITALS: TEMP 98.2
[2018-09-23 17:08] VITALS: BP 158/74
--- NOTE | 2018-09-24 02:11 | DIS ---
DATE OF ADMISSION: 09/20/2018 DATE OF DISCHARGE: 09/23/2018 ADMITTING DIAGNOSES: 1. Chronic obstructive pulmonary disease exacerbation. 2. Shortness of breath. 3. Hypoxia. 4. Hyponatremia. 5. Hypertension. 6. Hyperlipidemia. 7. Hypothyroidism. DISCHARGE DIAGNOSES: 1. Chronic obstructive pulmonary disease exacerbation, resolved. 2. Hypoxia, resolved. 3. Hyponatremia, resolved. 4. Hypothyroidism, stable. 5. Hypertension, stable. 6. Hyperlipidemia, stable. HOSPITAL COURSE: This is an 88-year-old female, presented to the hospital with hypoxia and COPD exacerbation, was admitted to Internal Medicine Team. The patient was started on IV antibiotics, steroids, and breathing treatments. The patient was observed for 48 hours. The patient after 48 hours of steroids in the hospital as well as one dose in 24 hours in the ER, was feeling better, then stated that she was back to her baseline. Denied any nausea, vomiting, diarrhea, constipation, chest pain, fevers, chills, or shortness of breath. The patient was breathing on 2 L nasal cannula, was saturating 100%. Vital signs were stable. Case was discussed with the patient's daughter at length as well, who stated that she did not want the patient to go to a senior care facility or rehab and wanted the patient to come home. The patient lives apparently with multiple family members, has significant support at home. Also has home health care and everything already arrange for her. At this point in time, we will discharge the patient with Levaquin for 5 days and Medrol Dosepak. Advised to follow up with PCP within 1 week. Case and plan were discussed with the patient at length as well as her daughter via phone with external phone number at [phone]. They both understand and agree with this plan. DISPOSITION: Home. Home health care already arranged by family. MEDICATIONS: See MAR. ACTIVITY: As tolerated with assistance as needed. DIET: Low-fat, low-calorie, high-fiber diet. CONDITION: Stable. PROGNOSIS: Good. Case and plan again were discussed with the patient and family at length. They understand and agree with this plan. Job ID: [id number]
--- NOTE | 2018-09-24 22:43 | EKG ---
Test Reason : Blood Pressure : / mmHG Vent. Rate : 083 BPM Atrial Rate : 083 BPM P-R Int : 156 ms QRS Dur : 066 ms QT Int : 380 ms P-R-T Axes : 056 018 035 degrees QTc Int : 446 ms Normal sinus rhythm Normal ECG When compared with ECG of 20-SEP-2018 22:33, Premature atrial complexes are no longer Present Criteria for Septal infarct are no longer Present Confirmed by Nadia HAQ ([id number]) on 09/24/2018 10:43:18 PM Referred By: Confirmed By:Nadia HAQ
== END 2018-09-23 17:16 | disposition home or self-care (01) | DRG 191 ==
LOC: ERS 19:13 → T4-A 23:00
PROVIDERS: ADMIT Internal Medicine; ATTEND Internal Medicine
DX: J44.1 Chronic obstructive pulmonary disease with (acute) exacerbation (principal); E87.1 Hypo-osmolality and hyponatremia; I13.0 Hypertensive heart and chronic kidney disease with heart failure and stage 1 through stage 4 chronic kidney disease, or unspecified chronic kidney disease; E46 Unspecified protein-calorie malnutrition; N39.0 Urinary tract infection, site not specified; I50.32 Chronic diastolic (congestive) heart failure; B95.2 Enterococcus as the cause of diseases classified elsewhere; N18.3 Chronic kidney disease, stage 3 (moderate); G30.9 Alzheimer's disease, unspecified; F02.80 Dementia in other diseases classified elsewhere, unspecified severity, without behavioral disturbance, psychotic disturbance, mood disturbance, and anxiety; F41.9 Anxiety disorder, unspecified; F32.9 Major depressive disorder, single episode, unspecified; K21.9 Gastro-esophageal reflux disease without esophagitis; R09.02 Hypoxemia; E03.9 Hypothyroidism, unspecified; Z68.20 Body mass index [BMI] 20.0-20.9, adult; Z88.8 Allergy status to other drugs, medicaments and biological substances; Z88.5 Allergy status to narcotic agent; Z88.2 Allergy status to sulfonamides; Z91.040 Latex allergy status; Z79.899 Other long term (current) drug therapy; Z79.51 Long term (current) use of inhaled steroids; Z79.82 Long term (current) use of aspirin; Z79.01 Long term (current) use of anticoagulants; Z86.718 Personal history of other venous thrombosis and embolism
CPT/HCPCS: 36415; 51701; 70450; 71045; 80048; 80053; 81001; 81003; 81015; 83605; 83690; 84484; 85025; 87077; 87086; 87186; 87804; 93005; 93010; 94640; 96365; 96366; 96375; A4353; J1956; J2930; J3370; J7050; J7620

== ENCOUNTER 2019-05-22 20:59 | Inpatient (IN) | payer MEDICARE, BC ==
[~2019-05-22 20:59] MED LIST changes: -ISOVUE-370 76%-LOCM 1 ML ONE; +Iopamidol 370 76% 100 ML VIAL ONE
--- NOTE | 2019-05-22 21:25 | RAD ---
EXAM: Portable chest PROVIDED CLINICAL HISTORY: Chest pain COMPARISON: 09/20/2018 FINDINGS: Cardiac silhouette appears prominent, likely least partially on the basis of portable technique. Stab le left apical opacity. No focal consolidation, pleural fluid or pneumothorax evident. Vascular calcification involves the aortic arch. IMPRESSION: No evidence for an acute cardiopulmonary process.
[2019-05-22 21:28] LABS: #Basophils 0.1 thou/uL (0.0-0.2); #Eosinphils 0.3 thou/uL (0.0-0.7); #Lymphocytes 2.1 thou/uL (1.20-3.40); #Monocytes 0.9 thou/uL (0.11-0.59); #Neutrophils 7.1 thou/uL (1.40-6.50); %Basophils 0.6 % (0.0-1.0); %Eosinophils 2.7 % (0.0-10.0); %Monocytes 8.6 % (0.0-10.0); %Neutrophils 68.1 % (42.0-75.0); Hemoglobin 12.9 g/dL (12.0-16.0); Mean Corpuscular Hemoglobin 34.9 pg (27.0-31.0); Mean Platelet Volume 6.6 fL (7.4-10.4); Platelet Count 323 thou/uL (130-400); RBC Distribution Width 12.3 % (11.5-14.5); Red Blood Cell (RBC) Count 3.69 mill/uL (4.20-5.40); White Blood Cell (WBC) Count 10.5 thou/uL (4.8-10.8)
[2019-05-22 21:50] LABS: ALT (SGPT) 15 U/L (8-55); AST (SGOT) 31 U/L (5-34); Alkaline Phosphatase 100 U/L (40-110); Anion Gap 13 mmol/L (10-20); BUN (Urea Nitrogen) 17 mg/dL (9.8-20.1); Bilirubin, Total 0.4 mg/dL (0.2-1.2); Calc. Creatinine Clearance 0 mL/min (70-130); Calcium 9.5 mg/dL (7.8-10.44); Carbon Dioxide 29 mmol/L (23-31); Chloride 98 mmol/L (98-107); Estimated GFR-MDRD 48; Globulin 3.7 g/dL (2.4-3.5); Glucose 105 mg/dL (83-110); Potassium 3.6 mmol/L (3.5-5.1); Protein, Total 7.7 g/dL (6.0-8.3); Sodium 136 mmol/L (136-145)
--- NOTE | 2019-05-22 23:17 | CT ---
EXAM: CT pulmonary angiogram with IV contrast and 3-D MIP reconstructions PROVIDED CLINICAL HISTORY: Chest pain COMPARISON: None FINDINGS: There is no evidence for central or segmental pulmonary embolus. Vascular calcification including cor onary calcium is demonstrated. Focal area of noncalcified mural plaque involves the posterior aspects of the proximal descending thoracic aorta. The lungs are free of significant opacity. Biapical pleural parenchymal scarring-type changes are see n. Small bilateral pleural effusions. No evidence for pneumothorax. No evidence for thoracic lymph node enlargement. The airway appears patent and of normal caliber. Small amount of free fluid is seen about the right hepatic margin cranially, etiology and significanc e uncertain. The osseous structures demonstrate no concerning lytic or blastic lesions. IMPRESSION: No evidence for central or segmental pulmonary embolus.
[2019-05-22] MEDS ORDERED: Aspirin Chewable 81 MG TAB ONE (23:32)
[2019-05-22] MEDS ORDERED: methylPREDNISolone Sod Succ/PF 125 MG/2 ML VIAL ONE (23:32)
--- NOTE | 2019-05-23 00:30 | PDOC.EVN ---
Event Note - Event Note Event Note: [id number]
[2019-05-23 00:56] LABS: Troponin I 0.021 ng/mL (< 0.028)
[2019-05-23] MEDS ORDERED: Azithromycin 500 MG VIAL ONE (01:19)
[2019-05-23] MEDS: Azithromycin 500 MG in Sodium Chloride 0.9% 250 ML 250 ML IVPB SCH (01:34)
[2019-05-23] MEDS ORDERED: cefTRIAXone\\ROCEPHIN 1 GM VIAL ONE (02:19)
[2019-05-23] MEDS: cefTRIAXone\\ROCEPHIN 1 GM in Sodium Chloride 0.9% 100 ML IVPB SCH (02:38)
[2019-05-23] MEDS ORDERED: Ondansetron PF 4 MG/2 ML Vial ONE (02:48)
[2019-05-23] MEDS: Ondansetron PF 4 MG/2 ML Vial SLOW IVP PRN (02:51)
[2019-05-23 03:50] LABS: Troponin I Less than 0.010 ng/mL (< 0.028)
[2019-05-23] MEDS: methylPREDNISolone Sod Succ 40 MG VIAL IVP SCH ×3 (05:41→18:06)
[2019-05-24] MEDS ORDERED: Mirtazapine 15 MG TAB PO SCH (00:45)
[2019-05-24] MEDS ORDERED: traZODone HCl 50 MG TAB PO SCH (00:45)
[2019-05-24] MEDS: methylPREDNISolone Sod Succ 40 MG VIAL IVP SCH ×4 (00:51→17:30)
[2019-05-24] MEDS: Azithromycin 500 MG in Sodium Chloride 0.9% 250 ML 250 ML IVPB SCH (00:59)
[2019-05-24] MEDS: cefTRIAXone\\ROCEPHIN 1 GM in Sodium Chloride 0.9% 100 ML IVPB SCH (01:00)
[2019-05-24] MEDS: Ondansetron PF 4 MG/2 ML Vial SLOW IVP PRN (02:03)
[2019-05-24] MEDS ORDERED: Labetalol HCl 100 MG/20 ML VIAL SLOW IVP SCH (02:30)
--- NOTE | 2019-05-24 08:08 | HP ---
CHIEF COMPLAINT: Shortness of breath and chest pain. HISTORY OF PRESENT ILLNESS: Ms. Pineda is an 88-year-old female with past medical history of hypertension, recurrent UTIs, hypothyroidism, ? bronchitis, former smoker, presents to the emergency room with shortness of breath and chest pain. The patient has been coughing with yellowish phlegm. Also, she reports chest pain and palpitations. It was reported that her pulse ox on room air was 80% to 85%. She was recently on antibiotics. PAST MEDICAL HISTORY: 1. Hypothyroidism. 2. Hypertension. 3. Chronic UTIs. 4. Anemia. 5. Hypothyroidism. PAST SURGICAL HISTORY: 1. Appendectomy. 2. Cholecystectomy. 3. Bilateral kidney stones. 4. Hysterectomy. 5. Hernia surgery. SOCIAL HISTORY: The patient is a former smoker. Lives at home with family. FAMILY HISTORY: Reviewed and noncontributory. HOME MEDICATIONS: Please see home medication reconciliation form for updated medications. ALLERGIES: THE PATIENT IS ALLERGIC TO ADHESIVES, CODEINE, DOXYCYCLINE, ERYTHROMYCIN, LATEX, MONTELUKAST, PENICILLIN, SULFA. REVIEW OF SYSTEMS: Review of 14 systems negative except what is mentioned in history of present illness. PHYSICAL EXAMINATION: GENERAL: The patient is awake, alert, in moderate respiratory distress. VITAL SIGNS: Blood pressure is 165/90, pulse is 100, respiratory rate is 20, temperature is 98.1. HEAD: Normocephalic, atraumatic. NECK: Supple. CHEST: Bilateral expiratory wheeze. HEART: S1, S2. Regular, tachycardic. ABDOMEN: Soft, nontender. NEUROLOGIC: Awake, alert, oriented, hard of hearing. PSYCHIATRIC: Normal mood. EXTREMITIES: No clubbing or cyanosis. LABORATORY DATA: Troponin 0.01. Lactic acid 1.2, hemoglobin 12.9, WBC count is 10.5. CT angiogram of the chest, no evidence of central or segmental pulmonary embolus. ASSESSMENT: 1. Chronic obstructive pulmonary disease with possible exacerbation, the patient reports that she has a history of bronchitis, but she said that she was never told that she had chronic obstructive pulmonary disease ? 2. Former cigarette smoker. 3. Hypertension. 4. Hypothyroidism. 5. Chest pain. PLAN: 1. Admit. 2. Oxygen to keep saturation more than 92%. 3. Serial troponins. 4. DuoNebs scheduled and as needed. 5. Empiric IV antibiotics. 6. Reconcile home medications. 7. DVT prophylaxis as appropriate. 8. Expected length of stay, 2 midnights or more. Job ID: [id number]
[2019-05-24] MEDS ORDERED: Iopamidol 370 76% 100 ML VIAL ONE (10:51)
--- NOTE | 2019-05-24 13:27 | CT ---
CTA CHEST WITH CONTRAST: Date: 05/24/19 Axial tomograms obtained following angio protocol with multiplanar reconstruction and 3D postprocessi ng. INDICATION: Chest pain. Shortness of breath. Assess for pulmonary embolus. Comparison made to recent CTA chest dated 05/22/19. FINDINGS: Pulmonary arteries show adequate opacification. There is no evidence of pulmonary embolus. There are small to moderate size bilateral pleural effusions, unchanged in size from 05/22/19. There is apical pleural thickening with nodular parenchymal and pleural density in the left apex which is s table in appearance. Bibasilar atelectasis. Mediastinum unremarkable with nonspecific lymph nodes. Atherosclerotic changes in the thoracic aorta without evidence of dissection. Large cysts from the superior pole left kidney incompletely imaged. IMPRESSION: 1. No evidence of pulmonary embolus. 2. Bilateral pleural effusions. 3. Bilateral apical pleural thickening with nodular parenchymal and pleural opacity in the left apex . 4. Chest CT findings are stable from 05/22/19. POS: [facility]
--- NOTE | 2019-05-24 16:25 | PDOC.HOSPP ---
- Subjective Encounter Date: 05/24/19 Encounter Time: 08:00 Subjective: Pt seen for followup re: COPD exacerbation. Feels slightly better. - Objective Vital Signs & Weight: Vital Signs (12 hours) Temp Pulse Resp BP Pulse Ox 05/24/19 13:27 121 H 18 98 05/24/19 12:00 97.4 F L 121 H 18 149/84 H 96 05/24/19 08:00 97.9 F 117 H 21 H 141/78 H 98 05/24/19 06:48 92 L 05/24/19 06:45 113 H 16 92 L Weight Weight 120 lb 2.431 oz I&O: 05/23/19 05/24/19 05/25/19 06:59 06:59 06:59 Intake Total 1860 Output Total 1150 Balance 710 Result Diagrams: 05/22/19 21:12 05/22/19 21:12 Additional Labs: Labs and MARs reviewed by me. EKG Reviewed by me: Yes (Tele; S. tach) Hospitalist ROS - Review of Systems Cardiovascular: denies: chest pain, palpitations, orthopnea, paroxysmal noc. dyspnea, edema, light headedness Gastrointestinal: reports: other. denies: nausea, vomiting, abdominal pain, diarrhea, constipation, melena, hematochezia - Medication Medications: Active Medications Generic Name Dose Route Start Last Admin Trade Name Freq PRN Reason Stop Dose Admin Albuterol/Ipratropium 3 ml 05/23/19 01:00 05/24/19 13:27 Duoneb NEB 3 ml [id number] SRINIVAS Administration Azithromycin 500 mg/ Sodium 250 mls @ 250 mls/hr 05/23/19 01:00 05/24/19 00: 59 Chloride IVPB 250 mls Q24HR SRINIVAS Administration Ceftriaxone Sodium 1 gm/ 100 mls @ 200 mls/hr 05/23/19 02:00 05/24/19 01:00 Sodium Chloride IVPB 100 mls Q24HR SRINIVAS Administration Methylprednisolone Sodium Succinate 40 mg 05/23/19 06:00 05/24/19 12:23 Solu-Medrol IVP 40 mg Q6HR SRINIVAS Administration Ondansetron HCl 4 mg 05/23/19 02:47 05/24/19 02:03 Zofran SLOW IVP 4 mg Q6H PRN Administration Nausea/Vomiting Sodium Chloride 10 ml 05/23/19 09:00 12/13/19 09:19 Flush - Normal Saline IVF Not Given Q12HR SRINIVAS - Exam General Appearance: NAD Eye: anicteric sclera ENT: moist mucosa Neck: supple Heart - other findings: S1, S2, tachy, reg Respiratory: wheezes Gastrointestinal: soft, non-tender Skin: no rashes Psychiatric: normal affect, normal behavior Hosp A/P (1) COPD exacerbation Code(s): J44.1 - CHRONIC OBSTRUCTIVE PULMONARY DISEASE W (ACUTE) EXACERBATION Status: Acute (2) Alzheimer's dementia Code(s): G30.9 - ALZHEIMER'S DISEASE, UNSPECIFIED Status: Chronic Qualifiers: Alzheimer's disease onset: unspecified onset Dementia behavioral disturbance: without behavioral disturbance Qualified Code(s): G30.9 - Alzheimer's disease, unspecified; F02.80 - Dementia in other diseases classified elsewhere without behavioral disturbance (3) GERD (gastroesophageal reflux disease) Code(s): K21.9 - GASTRO-ESOPHAGEAL REFLUX DISEASE WITHOUT ESOPHAGITIS Status: Chronic Qualifiers: Esophagitis presence: esophagitis presence not specified Qualified Code(s) : K21.9 - Gastro-esophageal reflux disease without esophagitis (4) Glaucoma Code(s): H40.9 - UNSPECIFIED GLAUCOMA Status: Chronic (5) Hypertension Code(s): I10 - ESSENTIAL (PRIMARY) HYPERTENSION Status: Chronic Qualifiers: (6) Hypothyroidism Code(s): E03.9 - HYPOTHYROIDISM, UNSPECIFIED Status: Chronic Qualifiers: (7) Protein-calorie malnutrition, moderate Code(s): E44.0 - MODERATE PROTEIN-CALORIE MALNUTRITION Status: Chronic - Plan continue antibiotics No CT evidence of PE. Continue oxygen, steroids, bronchodilators. Resume home medications.
[2019-05-24] MEDS ORDERED: tiZANidine HCl 4 MG TAB PO PRN (16:32)
[2019-05-24] MEDS ORDERED: Azelastine 137 MCG/Spray 30 ML NS PRN (17:00)
[2019-05-24] MEDS ORDERED: [UNRECOGNIZED DRUG - OTHER] PO PRN (17:15)
[2019-05-24] MEDS: Ferrous Sulfate 325 MG TAB PO SCH (17:30)
[2019-05-24] MEDS ORDERED: Phenazopyridine HCl 97.5 MG TABLET PO PRN (18:00)
[2019-05-24] MEDS: Mometasone/Formoterol 120 PUFF INHALER INH SCH (18:17)
[2019-05-24] MEDS: traZODone HCl 50 MG TAB PO SCH (20:37)
[2019-05-24] MEDS: Carvedilol 6.25 MG TAB PO SCH (20:37)
[2019-05-24] MEDS: busPIRone HCl 5 MG TAB PO SCH (20:37)
[2019-05-24] MEDS: Mirtazapine 15 MG TAB PO SCH (20:37)
[2019-05-24] MEDS: Calcium Carbonate + Vit D 1 TAB PO SCH (20:37)
[2019-05-24] MEDS: diphenhydrAMINE 12.5 MG/5 ML UDCUP PO SCH (20:38)
[2019-05-24] MEDS ORDERED: GLUCOSAMINE SULFATE 1000 MG PO SCH (21:00)
[2019-05-24] MEDS: Estradiol 0.01% Vaginal Cream 42.5 gm Tube VAG SCH (23:10)
[2019-05-25] MEDS: methylPREDNISolone Sod Succ 40 MG VIAL IVP SCH ×4 (00:26→16:55)
[2019-05-25] MEDS: Azithromycin 500 MG in Sodium Chloride 0.9% 250 ML 250 ML IVPB SCH (00:29)
[2019-05-25] MEDS: Ondansetron PF 4 MG/2 ML Vial SLOW IVP PRN ×2 (01:43→12:22)
[2019-05-25] MEDS: cefTRIAXone\\ROCEPHIN 1 GM in Sodium Chloride 0.9% 100 ML IVPB SCH (01:45)
[2019-05-25] MEDS: Acetaminophen 325 MG TAB PO PRN ×3 (02:15→21:02)
[2019-05-25] MEDS: Levothyroxine Sodium 50 MCG TAB PO SCH (05:55)
[2019-05-25] MEDS: Mometasone/Formoterol 120 PUFF INHALER INH SCH ×2 (06:46→18:30)
[2019-05-25] MEDS: Lisinopril 10 MG TAB PO SCH (08:25)
[2019-05-25] MEDS: Gabapentin 100 MG CAP PO SCH (08:26)
[2019-05-25] MEDS: Carvedilol 6.25 MG TAB PO SCH ×2 (08:26→21:03)
[2019-05-25] MEDS: busPIRone HCl 5 MG TAB PO SCH ×2 (08:26→21:03)
[2019-05-25] MEDS: Calcium Carbonate + Vit D 1 TAB PO SCH ×2 (08:27→21:02)
[2019-05-25] MEDS: Ascorbic Acid 500 mg Chewable Tablet PO SCH (08:27)
[2019-05-25] MEDS: Ferrous Sulfate 325 MG TAB PO SCH ×2 (08:27→16:54)
[2019-05-25] MEDS: Furosemide 20 MG TAB PO SCH (08:27)
[2019-05-25] MEDS: Loratadine 10 MG TAB PO SCH (08:27)
[2019-05-25] MEDS: Polyethylene Glycol 3350 17 GM Packet PO SCH (08:28)
[2019-05-25] MEDS ORDERED: Ospemifene [Osphena] 60 MG PO SCH ×2 (09:00)
[2019-05-25] MEDS: Fluticasone Propionate Nasal Spray 16 gm Bottle NASAL SCH (12:17)
--- NOTE | 2019-05-25 13:53 | PDOC.HOSPP ---
- Subjective Encounter Date: 05/25/19 Encounter Time: 07:40 Subjective: Pt seen for followup re: COPD exacerbation. Feels better. - Objective Vital Signs & Weight: Vital Signs (12 hours) Temp Pulse Resp BP BP Pulse Ox 05/25/19 11:50 97.3 F L 102 H 18 158/90 H 94 L 05/25/19 08:26 158/98 H 05/25/19 08:25 158/98 H 05/25/19 08:00 98.1 F 118 H 20 96 05/25/19 06:47 96 05/25/19 06:45 109 H 16 96 05/25/19 03:45 98.5 F 106 H 18 159/90 H 96 Weight Weight 120 lb 2.431 oz I&O: 05/24/19 05/25/19 05/26/19 06:59 06:59 06:59 Intake Total 1860 720 Output Total 1150 900 Balance 710 -180 Result Diagrams: 05/22/19 21:12 05/22/19 21:12 Additional Labs: Labs and MARs reviewed by me. Hospitalist ROS - Review of Systems Respiratory: reports: SOB with excertion. denies: cough, shortness of breath, pleuritic pain, wheezing Cardiovascular: denies: chest pain, palpitations, orthopnea, paroxysmal noc. dyspnea, edema, light headedness - Medication Medications: Active Medications Generic Name Dose Route Start Last Admin Trade Name Freq PRN Reason Stop Dose Admin Acetaminophen 650 mg 05/25/19 01:41 05/25/19 08:36 Tylenol PO 650 mg Q6H PRN Administration Headache/Fever/MILD Pain 1-3 Albuterol/Ipratropium 3 ml 05/23/19 01:00 05/25/19 06:45 Duoneb NEB 3 ml [id number] SRINIVAS Administration Ascorbic Acid 250 mg 05/25/19 09:00 05/25/19 08:27 Vitamin C PO 250 mg DAILY SRINIVAS Administration Buspirone HCl 15 mg 05/24/19 21:00 05/25/19 08:26 Buspar PO 15 mg BID SRINIVAS Administration Calcium/Vitamin D 1 tab 05/24/19 21:00 05/25/19 08:27 Caltrate 600 + Vit D PO 1 tab BID SRINIVAS Administration Carvedilol 6.25 mg 05/24/19 21:00 05/25/19 08:26 Coreg PO 6.25 mg BID SRINIVAS Administration Diphenhydramine HCl 25 mg 05/24/19 21:00 05/24/19 20:38 Benadryl PO 25 mg HS SRINIVAS Administration Estradiol 0 gm 05/24/19 21:00 05/24/19 23:10 Estrace 0.01% Vaginal Cream VAG 42.5 gm HS SRINIVAS Administration Ferrous Sulfate 325 mg 05/24/19 17:00 05/25/19 08:27 Feosol PO 325 mg BID-WM SIRNIVAS Administration Fluticasone Propionate 0 gm 05/25/19 09:00 05/25/19 12:17 Flonase Nasal [place] NASAL 1 spr DAILY SRINIVAS Administration Furosemide 20 mg 05/25/19 09:00 05/25/19 08:27 Lasix PO 20 mg DAILY SRINIVAS Administration Gabapentin 100 mg 05/25/19 09:00 05/25/19 08:26 Neurontin PO 100 mg DAILY SRINIVAS Administration Azithromycin 500 mg/ Sodium 250 mls @ 250 mls/hr 05/23/19 01:00 05/25/19 00: 29 Chloride IVPB 250 mls Q24HR SRINIVAS Administration Ceftriaxone Sodium 1 gm/ 100 mls @ 200 mls/hr 05/23/19 02:00 05/25/19 01:45 Sodium Chloride IVPB 100 mls Q24HR SRINIVAS Administration Levothyroxine Sodium 50 mcg 05/25/19 06:00 05/25/19 05:55 Synthroid PO 50 mcg 0600 SRINIVAS Administration Lisinopril 10 mg 05/25/19 09:00 05/25/19 08:25 Zestril PO 10 mg DAILY SRINIVAS Administration Loratadine 10 mg 05/25/19 09:00 05/25/19 08:27 Claritin PO 10 mg DAILY SRINIVAS Administration Methylprednisolone Sodium Succinate 40 mg 05/23/19 06:00 05/25/19 12:17 Solu-Medrol IVP 40 mg Q6HR SRINIVAS Administration Mirtazapine 15 mg 05/24/19 21:00 05/24/19 20:37 Remeron PO 15 mg HS SRINIVAS Administration Mometasone Furoate/Formoterol Fumar 2 puff 05/24/19 18:30 05/25/19 06:46 Dulera 200 Mcg/5 Mcg Inhaler INH 2 puff BID-RT SRINIVAS Administration Ondansetron HCl 4 mg 05/23/19 02:47 05/25/19 12:22 Zofran SLOW IVP 4 mg Q6H PRN Administration Nausea/Vomiting Pantoprazole Sodium 40 mg 05/25/19 09:00 05/25/19 08:25 Protonix PO 40 mg DAILY SRINIVAS Administration Phenazopyridine HCl 195 mg 05/24/19 18:00 05/24/19 23:12 Azo Standard PO 195 mg TIDPRN PRN Administration Uterine Cramping Polyethylene Glycol 17 gm 05/25/19 09:00 05/25/19 08:28 Miralax PO 17 gm DAILY SRINIVAS Administration Sodium Chloride 10 ml 05/23/19 09:00 05/25/19 08:29 Flush - Normal Saline IVF 10 ml Q12HR SRINIVAS Administration Trazodone HCl 50 mg 05/24/19 21:00 05/24/19 20:37 Desyrel PO 50 mg HS SRINIVAS Administration - Exam General Appearance: NAD, awake alert Eye: anicteric sclera ENT: moist mucosa Neck: supple, symmetric Heart - other findings: S1, S2, tachy, reg Respiratory: CTAB Gastrointestinal: soft, non-tender Extremities: no clubbing Psychiatric: normal affect, normal behavior Hosp A/P (1) COPD exacerbation Code(s): J44.1 - CHRONIC OBSTRUCTIVE PULMONARY DISEASE W (ACUTE) EXACERBATION Status: Acute (2) Alzheimer's dementia Code(s): G30.9 - ALZHEIMER'S DISEASE, UNSPECIFIED Status: Chronic Qualifiers: Alzheimer's disease onset: unspecified onset Dementia behavioral disturbance: without behavioral disturbance Qualified Code(s): G30.9 - Alzheimer's disease, unspecified; F02.80 - Dementia in other diseases classified elsewhere without behavioral disturbance (3) GERD (gastroesophageal reflux disease) Code(s): K21.9 - GASTRO-ESOPHAGEAL REFLUX DISEASE WITHOUT ESOPHAGITIS Status: Chronic Qualifiers: Esophagitis presence: esophagitis presence not specified Qualified Code(s) : K21.9 - Gastro-esophageal reflux disease without esophagitis (4) Glaucoma Code(s): H40.9 - UNSPECIFIED GLAUCOMA Status: Chronic (5) Hypertension Code(s): I10 - ESSENTIAL (PRIMARY) HYPERTENSION Status: Chronic Qualifiers: (6) Hypothyroidism Code(s): E03.9 - HYPOTHYROIDISM, UNSPECIFIED Status: Chronic Qualifiers: (7) Protein-calorie malnutrition, moderate Code(s): E44.0 - MODERATE PROTEIN-CALORIE MALNUTRITION Status: Chronic - Plan continue antibiotics Clinically improving Continue oxygen, steroids, bronchodilators. Resume home medications. Ambulate patient.
[2019-05-25] MEDS: PUMPKIN SEED EXTRACT PO SCH ×2 (17:22→17:23)
[2019-05-25] MEDS: SOY GERM PO SCH ×2 (17:22→17:23)
[2019-05-25] MEDS: GLUCOSAMINE SULFATE 1000 MG PO SCH (17:22)
[2019-05-25] MEDS: Latanoprost 0.005% Ophth Soln 2.5 ml Bottle EA EYE SCH (21:02)
[2019-05-25] MEDS: diphenhydrAMINE 12.5 MG/5 ML UDCUP PO SCH (21:03)
[2019-05-25] MEDS: Mirtazapine 15 MG TAB PO SCH (21:03)
[2019-05-25] MEDS: traZODone HCl 50 MG TAB PO SCH (21:03)
[2019-05-25] MEDS: Estradiol 0.01% Vaginal Cream 42.5 gm Tube VAG SCH (21:04)
[2019-05-26] MEDS: Azithromycin 500 MG in Sodium Chloride 0.9% 250 ML 250 ML IVPB SCH (01:00)
[2019-05-26] MEDS: methylPREDNISolone Sod Succ 40 MG VIAL IVP SCH ×3 (01:00→12:08)
[2019-05-26] MEDS: Ondansetron PF 4 MG/2 ML Vial SLOW IVP PRN (01:05)
[2019-05-26] MEDS: cefTRIAXone\\ROCEPHIN 1 GM in Sodium Chloride 0.9% 100 ML IVPB SCH (02:51)
[2019-05-26] MEDS: Levothyroxine Sodium 50 MCG TAB PO SCH (05:57)
[2019-05-26] MEDS: Mometasone/Formoterol 120 PUFF INHALER INH SCH ×2 (06:44→18:34)
[2019-05-26] MEDS: Ferrous Sulfate 325 MG TAB PO SCH ×2 (09:24→17:20)
[2019-05-26] MEDS: Ascorbic Acid 500 mg Chewable Tablet PO SCH (09:24)
[2019-05-26] MEDS: busPIRone HCl 5 MG TAB PO SCH ×2 (09:25→22:01)
[2019-05-26] MEDS: Calcium Carbonate + Vit D 1 TAB PO SCH ×2 (09:25→22:01)
[2019-05-26] MEDS: Carvedilol 6.25 MG TAB PO SCH ×2 (09:25→22:01)
[2019-05-26] MEDS: Gabapentin 100 MG CAP PO SCH (09:27)
[2019-05-26] MEDS: Lisinopril 10 MG TAB PO SCH (09:27)
[2019-05-26] MEDS: Furosemide 20 MG TAB PO SCH (09:27)
[2019-05-26] MEDS: Loratadine 10 MG TAB PO SCH (09:28)
[2019-05-26] MEDS: Polyethylene Glycol 3350 17 GM Packet PO SCH (09:28)
[2019-05-26] MEDS: Acetaminophen 325 MG TAB PO PRN ×2 (09:36→22:01)
[2019-05-26] MEDS: Fluticasone Propionate Nasal Spray 16 gm Bottle NASAL SCH (09:37)
--- NOTE | 2019-05-26 12:23 | PDOC.HOSPP ---
- Subjective Encounter Date: 05/26/19 Encounter Time: 07:40 Subjective: Pt seen for followup re: COPD exacerbation. - Objective Vital Signs & Weight: Vital Signs (12 hours) Temp Pulse Resp BP BP Pulse Ox 05/26/19 07:38 97.4 F L 107 H 18 165/89 H 94 L 05/26/19 06:44 97 05/26/19 06:43 99 16 99 05/26/19 04:00 97.2 F L 102 H 18 133/79 94 L 05/26/19 00:43 97 16 98 Weight Weight 126 lb 1.671 oz I&O: 05/25/19 05/26/19 05/27/19 06:59 06:59 06:59 Intake Total 720 1590 Output Total 900 350 Balance -180 1240 Result Diagrams: 05/22/19 21:12 05/22/19 21:12 Additional Labs: Labs and MARs reviewed by me EKG Reviewed by me: Yes (Tele: sinus tachycardia) Hospitalist ROS - Review of Systems Respiratory: denies: cough, shortness of breath, SOB with excertion, pleuritic pain, wheezing Cardiovascular: denies: chest pain, palpitations, orthopnea, paroxysmal noc. dyspnea, edema, light headedness - Medication Medications: Active Medications Generic Name Dose Route Start Last Admin Trade Name Freq PRN Reason Stop Dose Admin Acetaminophen 650 mg 05/25/19 01:41 05/26/19 09:36 Tylenol PO 650 mg Q6H PRN Administration Headache/Fever/MILD Pain 1-3 Albuterol/Ipratropium 3 ml 05/23/19 01:00 05/26/19 06:43 Duoneb NEB 3 ml [id number] SRINIVAS Administration Ascorbic Acid 250 mg 05/25/19 09:00 05/26/19 09:24 Vitamin C PO 250 mg DAILY SRINIVAS Administration Buspirone HCl 15 mg 05/24/19 21:00 05/26/19 09:25 Buspar PO 15 mg BID SRINIVAS Administration Calcium/Vitamin D 1 tab 05/24/19 21:00 05/26/19 09:25 Caltrate 600 + Vit D PO 1 tab BID SRINIVAS Administration Carvedilol 6.25 mg 05/24/19 21:00 05/26/19 09:25 Coreg PO 6.25 mg BID SRINIVAS Administration Diphenhydramine HCl 25 mg 05/24/19 21:00 05/25/19 21:03 Benadryl PO 25 mg HS SRINIVAS Administration Estradiol 0 gm 05/24/19 21:00 05/25/19 21:04 Estrace 0.01% Vaginal Cream VAG Not Given HS SRINIVAS Ferrous Sulfate 325 mg 05/24/19 17:00 05/26/19 09:24 Feosol PO 325 mg BID-WM SRINIVAS Administration Fluticasone Propionate 0 gm 05/25/19 09:00 05/26/19 09:37 Flonase Nasal [place] NASAL 1 spr DAILY SRINIVAS Administration Furosemide 20 mg 05/25/19 09:00 05/26/19 09:27 Lasix PO 20 mg DAILY SRINIVAS Administration Gabapentin 100 mg 05/25/19 09:00 05/26/19 09:27 Neurontin PO 100 mg DAILY SRINIVAS Administration Azithromycin 500 mg/ Sodium 250 mls @ 250 mls/hr 05/23/19 01:00 05/26/19 01: 00 Chloride IVPB 250 mls Q24HR SRINIVAS Administration Ceftriaxone Sodium 1 gm/ 100 mls @ 200 mls/hr 05/23/19 02:00 05/26/19 02:51 Sodium Chloride IVPB 100 mls Q24HR SRINIVAS Administration Latanoprost 1 drop 05/25/19 21:00 05/25/19 21:02 Xalatan 0.005% Oph Soln EA EYE 1 drop HS SRINIVAS Administration Levothyroxine Sodium 50 mcg 05/25/19 06:00 05/26/19 05:57 Synthroid PO 50 mcg 0600 SRINIVAS Administration Lisinopril 10 mg 05/25/19 09:00 05/26/19 09:27 Zestril PO 10 mg DAILY SRINIVAS Administration Loratadine 10 mg 05/25/19 09:00 05/26/19 09:28 Claritin PO 10 mg DAILY SRINIVAS Administration Methylprednisolone Sodium Succinate 40 mg 05/23/19 06:00 05/26/19 12:08 Solu-Medrol IVP 40 mg Q6HR SRINIVAS Administration Mirtazapine 15 mg 05/24/19 21:00 05/25/19 21:03 Remeron PO 15 mg HS SRINIVAS Administration Mometasone Furoate/Formoterol Fumar 2 puff 05/24/19 18:30 05/26/19 06:44 Dulera 200 Mcg/5 Mcg Inhaler INH 2 puff BID-RT SRINIVAS Administration Ondansetron HCl 4 mg 05/23/19 02:47 05/26/19 01:05 Zofran SLOW IVP 4 mg Q6H PRN Administration Nausea/Vomiting Pantoprazole Sodium 40 mg 05/25/19 09:00 05/26/19 09:28 Protonix PO 40 mg DAILY SRINIVAS Administration Phenazopyridine HCl 195 mg 05/24/19 18:00 05/24/19 23:12 Azo Standard PO 195 mg TIDPRN PRN Administration Uterine Cramping Polyethylene Glycol 17 gm 05/25/19 09:00 05/26/19 09:28 Miralax PO 17 gm DAILY SRINIVAS Administration Sodium Chloride 10 ml 05/23/19 09:00 05/26/19 09:28 Flush - Normal Saline IVF 10 ml Q12HR SRINIVAS Administration Trazodone HCl 50 mg 05/24/19 21:00 05/25/19 21:03 Desyrel PO 50 mg HS SRINIVAS Administration - Exam General Appearance: NAD Eye: anicteric sclera ENT: moist mucosa Neck: supple Heart - other findings: S1, S2, reg, tachy Respiratory: CTAB Gastrointestinal: soft, non-tender Psychiatric: normal affect, normal behavior Hosp A/P (1) COPD exacerbation Code(s): J44.1 - CHRONIC OBSTRUCTIVE PULMONARY DISEASE W (ACUTE) EXACERBATION Status: Acute (2) Alzheimer's dementia Code(s): G30.9 - ALZHEIMER'S DISEASE, UNSPECIFIED Status: Chronic Qualifiers: Alzheimer's disease onset: unspecified onset Dementia behavioral disturbance: without behavioral disturbance Qualified Code(s): G30.9 - Alzheimer's disease, unspecified; F02.80 - Dementia in other diseases classified elsewhere without behavioral disturbance (3) GERD (gastroesophageal reflux disease) Code(s): K21.9 - GASTRO-ESOPHAGEAL REFLUX DISEASE WITHOUT ESOPHAGITIS Status: Chronic Qualifiers: Esophagitis presence: esophagitis presence not specified Qualified Code(s) : K21.9 - Gastro-esophageal reflux disease without esophagitis (4) Glaucoma Code(s): H40.9 - UNSPECIFIED GLAUCOMA Status: Chronic (5) Hypertension Code(s): I10 - ESSENTIAL (PRIMARY) HYPERTENSION Status: Chronic Qualifiers: (6) Hypothyroidism Code(s): E03.9 - HYPOTHYROIDISM, UNSPECIFIED Status: Chronic Qualifiers: (7) Protein-calorie malnutrition, moderate Code(s): E44.0 - MODERATE PROTEIN-CALORIE MALNUTRITION Status: Chronic - Plan out of bed/ambulate Pt improving, but not ambulating. Continue oxygen, and bronchodilators. Switch to oral steroids and oral antibiotic. Ambulate patient.
[2019-05-26] MEDS: traZODone HCl 50 MG TAB PO SCH (22:01)
[2019-05-26] MEDS: Mirtazapine 15 MG TAB PO SCH (22:01)
[2019-05-26] MEDS: diphenhydrAMINE 12.5 MG/5 ML UDCUP PO SCH (22:02)
[2019-05-26] MEDS: Estradiol 0.01% Vaginal Cream 42.5 gm Tube VAG SCH (22:02)
[2019-05-26] MEDS: Latanoprost 0.005% Ophth Soln 2.5 ml Bottle EA EYE SCH (22:02)
[2019-05-27] MEDS: Levothyroxine Sodium 50 MCG TAB PO SCH (05:46)
[2019-05-27] MEDS: Mometasone/Formoterol 120 PUFF INHALER INH SCH ×2 (06:49→19:12)
[2019-05-27] MEDS: Ferrous Sulfate 325 MG TAB PO SCH ×2 (08:50→16:35)
[2019-05-27] MEDS: predniSONE 20 MG TAB PO SCH (08:50)
[2019-05-27] MEDS: Ascorbic Acid 500 mg Chewable Tablet PO SCH (08:51)
[2019-05-27] MEDS: busPIRone HCl 5 MG TAB PO SCH ×2 (08:51→20:51)
[2019-05-27] MEDS: Gabapentin 100 MG CAP PO SCH (08:52)
[2019-05-27] MEDS: Calcium Carbonate + Vit D 1 TAB PO SCH ×2 (08:52→20:51)
[2019-05-27] MEDS: Loratadine 10 MG TAB PO SCH (08:52)
[2019-05-27] MEDS: Lisinopril 10 MG TAB PO SCH (08:52)
[2019-05-27] MEDS: Carvedilol 6.25 MG TAB PO SCH ×2 (08:53→20:51)
[2019-05-27] MEDS: Furosemide 20 MG TAB PO SCH (08:53)
[2019-05-27] MEDS: Polyethylene Glycol 3350 17 GM Packet PO SCH (08:54)
[2019-05-27] MEDS: Fluticasone Propionate Nasal Spray 16 gm Bottle NASAL SCH (09:07)
[2019-05-27] MEDS: Acetaminophen 325 MG TAB PO PRN ×2 (09:08→20:50)
--- NOTE | 2019-05-27 14:48 | PDOC.HOSPP ---
- Subjective Encounter Date: 05/27/19 Encounter Time: 07:40 Subjective: Pt seen for followup re: COPD exacerbation. feels better. Not ambulating much. - Objective Vital Signs & Weight: Vital Signs (12 hours) Temp Pulse Resp BP BP BP Pulse Ox 05/27/19 13:34 97.3 F L 87 16 137/79 94 L 05/27/19 12:56 93 16 94 L 05/27/19 08:53 158/81 H 05/27/19 08:52 158/81 H 05/27/19 07:58 97.4 F L 99 20 158/81 H 94 L 05/27/19 07:55 94 L 05/27/19 06:53 94 L 05/27/19 06:52 96 16 95 05/27/19 06:49 96 16 94 L 05/27/19 04:00 98.3 F 90 23 H 141/78 H 96 Weight Weight 126 lb 1.671 oz I&O: 05/26/19 05/27/19 05/28/19 06:59 06:59 06:59 Intake Total 1590 1420 Output Total 350 800 Balance 1240 620 Result Diagrams: 05/22/19 21:12 05/22/19 21:12 Additional Labs: Labs and MARs reviewed by me EKG Reviewed by me: Yes (Tele: s. tach) Hospitalist ROS - Review of Systems Constitutional: denies: fever, chills, sweats, weakness Respiratory: denies: cough, shortness of breath, SOB with excertion, wheezing Cardiovascular: denies: chest pain, palpitations, orthopnea, paroxysmal noc. dyspnea, edema - Medication Medications: Active Medications Generic Name Dose Route Start Last Admin Trade Name Freq PRN Reason Stop Dose Admin Acetaminophen 650 mg 05/25/19 01:41 05/27/19 09:08 Tylenol PO 650 mg Q6H PRN Administration Headache/Fever/MILD Pain 1-3 Albuterol/Ipratropium 3 ml 05/23/19 01:00 05/27/19 12:56 Duoneb NEB 3 ml [id number] SRINIVAS Administration Ascorbic Acid 250 mg 05/25/19 09:00 05/27/19 08:51 Vitamin C PO 250 mg DAILY SRINIVAS Administration Buspirone HCl 15 mg 05/24/19 21:00 05/27/19 08:51 Buspar PO 15 mg BID SRINIVAS Administration Calcium/Vitamin D 1 tab 05/24/19 21:00 05/27/19 08:52 Caltrate 600 + Vit D PO 1 tab BID SRINIVAS Administration Carvedilol 6.25 mg 05/24/19 21:00 05/27/19 08:53 Coreg PO 6.25 mg BID SRINIVAS Administration Diphenhydramine HCl 25 mg 05/24/19 21:00 05/26/19 22:02 Benadryl PO 25 mg HS SRINIVAS Administration Estradiol 0 gm 05/24/19 21:00 05/26/19 22:02 Estrace 0.01% Vaginal Cream VAG Not Given HS SRINIVAS Ferrous Sulfate 325 mg 05/24/19 17:00 05/27/19 08:50 Feosol PO 325 mg BID-WM SRINIVAS Administration Fluticasone Propionate 0 gm 05/25/19 09:00 05/27/19 09:07 Flonase Nasal [place] NASAL 1 spr DAILY SRINIVAS Administration Furosemide 20 mg 05/25/19 09:00 05/27/19 08:53 Lasix PO 20 mg DAILY SRINIVAS Administration Gabapentin 100 mg 05/25/19 09:00 05/27/19 08:52 Neurontin PO 100 mg DAILY SRINIVAS Administration Latanoprost 1 drop 05/25/19 21:00 05/26/19 22:02 Xalatan 0.005% Oph Soln EA EYE 1 drop HS SRINIVAS Administration Levofloxacin 500 mg 05/27/19 06:00 05/27/19 05:46 Levaquin PO 500 mg 0600 SRINIVAS Administration Levothyroxine Sodium 50 mcg 05/25/19 06:00 05/27/19 05:46 Synthroid PO 50 mcg 0600 SRINIVAS Administration Lisinopril 10 mg 05/25/19 09:00 05/27/19 08:52 Zestril PO 10 mg DAILY SRINIVAS Administration Loratadine 10 mg 05/25/19 09:00 05/27/19 08:52 Claritin PO 10 mg DAILY SRINIVAS Administration Mirtazapine 15 mg 05/24/19 21:00 05/26/19 22:01 Remeron PO 15 mg HS SRINIVAS Administration Mometasone Furoate/Formoterol Fumar 2 puff 05/24/19 18:30 05/27/19 06:49 Dulera 200 Mcg/5 Mcg Inhaler INH 2 puff BID-RT SRINIVAS Administration Pantoprazole Sodium 40 mg 05/25/19 09:00 05/27/19 08:53 Protonix PO 40 mg DAILY SRINIVAS Administration Phenazopyridine HCl 195 mg 05/24/19 18:00 05/24/19 23:12 Azo Standard PO 195 mg TIDPRN PRN Administration Uterine Cramping Polyethylene Glycol 17 gm 05/25/19 09:00 05/27/19 08:54 Miralax PO 17 gm DAILY SRINIVAS Administration Prednisone 40 mg 05/27/19 08:00 05/27/19 08:50 Prednisone PO 40 mg QAM-WM SRINIVAS Administration Sodium Chloride 10 ml 05/23/19 09:00 05/27/19 08:54 Flush - Normal Saline IVF 10 ml Q12HR SRINIVAS Administration Trazodone HCl 50 mg 05/24/19 21:00 05/26/19 22:01 Desyrel PO 50 mg HS SRINIVAS Administration - Exam General Appearance: NAD Eye: anicteric sclera ENT: moist mucosa Neck: supple Heart: RRR Respiratory: CTAB Gastrointestinal: soft, non-tender Extremities: no cyanosis Neurological: no weakness Psychiatric: normal affect, normal behavior Hosp A/P (1) COPD exacerbation Code(s): J44.1 - CHRONIC OBSTRUCTIVE PULMONARY DISEASE W (ACUTE) EXACERBATION Status: Acute (2) Alzheimer's dementia Code(s): G30.9 - ALZHEIMER'S DISEASE, UNSPECIFIED Status: Chronic Qualifiers: Alzheimer's disease onset: unspecified onset Dementia behavioral disturbance: without behavioral disturbance Qualified Code(s): G30.9 - Alzheimer's disease, unspecified; F02.80 - Dementia in other diseases classified elsewhere without behavioral disturbance (3) GERD (gastroesophageal reflux disease) Code(s): K21.9 - GASTRO-ESOPHAGEAL REFLUX DISEASE WITHOUT ESOPHAGITIS Status: Chronic Qualifiers: Esophagitis presence: esophagitis presence not specified Qualified Code(s) : K21.9 - Gastro-esophageal reflux disease without esophagitis (4) Glaucoma Code(s): H40.9 - UNSPECIFIED GLAUCOMA Status: Chronic (5) Hypertension Code(s): I10 - ESSENTIAL (PRIMARY) HYPERTENSION Status: Chronic Qualifiers: (6) Hypothyroidism Code(s): E03.9 - HYPOTHYROIDISM, UNSPECIFIED Status: Chronic Qualifiers: (7) Protein-calorie malnutrition, moderate Code(s): E44.0 - MODERATE PROTEIN-CALORIE MALNUTRITION Status: Chronic - Plan PT/OT, out of bed/ambulate COPD exacerbation almost resolved. Walking program recommends PT eval/tx. Continue oxygen, and bronchodilators. Continue prednisone and levofloxacin.
[2019-05-27] MEDS: Estradiol 0.01% Vaginal Cream 42.5 gm Tube VAG SCH (20:52)
[2019-05-27] MEDS: diphenhydrAMINE 12.5 MG/5 ML UDCUP PO SCH (20:52)
[2019-05-27] MEDS: traZODone HCl 50 MG TAB PO SCH (20:52)
[2019-05-27] MEDS: Mirtazapine 15 MG TAB PO SCH (20:52)
[2019-05-27] MEDS: Latanoprost 0.005% Ophth Soln 2.5 ml Bottle EA EYE SCH (20:54)
[2019-05-28] MEDS: Levothyroxine Sodium 50 MCG TAB PO SCH (05:21)
[2019-05-28] MEDS: Mometasone/Formoterol 120 PUFF INHALER INH SCH (07:36)
[2019-05-28] MEDS: Calcium Carbonate + Vit D 1 TAB PO SCH (09:00)
[2019-05-28] MEDS: busPIRone HCl 5 MG TAB PO SCH (10:11)
[2019-05-28] MEDS: Lisinopril 10 MG TAB PO SCH (10:12)
[2019-05-28] MEDS: Gabapentin 100 MG CAP PO SCH ×2 (10:12→10:19)
[2019-05-28] MEDS: predniSONE 20 MG TAB PO SCH (10:12)
[2019-05-28] MEDS: Ferrous Sulfate 325 MG TAB PO SCH (10:12)
[2019-05-28] MEDS: Furosemide 20 MG TAB PO SCH (10:13)
[2019-05-28] MEDS: Loratadine 10 MG TAB PO SCH (10:13)
[2019-05-28] MEDS: Carvedilol 6.25 MG TAB PO SCH (10:13)
[2019-05-28] MEDS: Ascorbic Acid 500 mg Chewable Tablet PO SCH (10:13)
[2019-05-28] MEDS: Acetaminophen 325 MG TAB PO PRN (10:17)
[2019-05-28] MEDS: Fluticasone Propionate Nasal Spray 16 gm Bottle NASAL SCH (10:17)
[2019-05-28] MEDS: Polyethylene Glycol 3350 17 GM Packet PO SCH (10:31)
[2019-05-28 12:13] VITALS: BP 139/66; TEMP 98.4
--- NOTE | 2019-05-28 12:24 | PDOC.EVN ---
Event Note - Event Note Event Note: Patient with COPD still needing supplemental oxygen. Patient's oxygen saturations checked on room air at rest, 88%. Oxygen saturation dropped to 84% on room air with exertion. Improved to 93% with supplemental oxygen via nasal cannula. Patient will need home oxygen.
--- NOTE | 2019-05-28 13:45 | PQF ---
DATE: 05-28-19 ATTN: DR. MYLES CASTAÑEDA Please exercise your independent, professional judgment in responding to the clarification form. Clinical indicators are provided on the bottom of this form for your review Please check appropriate box(s): [ ] Acute Respiratory Failure: [ ] with Hypoxia[ ] with Hypercapnia [ ] Acute On Chronic Respiratory Failure: [ ] with Hypoxia [ ] with Hypercapnia [ ] Acute Respiratory Failure due to: (etiology) [ ] Hypoxia [ ] Other diagnosis [ ] Unable to determine In addition, please specify: Present on Admission (POA): [ ] Yes [ ] No [ ] Unable to determine For continuity of documentation, please document condition throughout progress notes and discharge summary. Thank You. CLINICAL INDICATORS - SIGNS / SYMPTOMS / LABS / RESULTS AND LOCATION IN MR: ER NOTES 05-22-19: PT PULSE OX READING NOTED TO BE 87% ON ROOM AIR. ER PHYSICIAN INCREASED SUPPLEMENTAL OXYGEN TO 2L, AFTER INTERVENTION 94% ON 2L. ER DX 05-22-19: ACUTE COPD EXACERBATION H&P 05-22-19: ? BRONCHITIS, SOB AND CP, FORMER SMOKER, IT WAS REPORTED THAT HER PULSE OX ON ROOM AIR WAS 80% TO 85%, IN MODERATE RESPIRATORY DISTRESS, COPD WITH POSSIBLE EXACERBATION, THE PATIENT REPORTS THAT SHE HAS A HX OF BRONCHITIS, BUT SHE SAID SHE WAS NEVER TOLD THAT SHE HAD COPD? EVENT NOTE DR. CASTAÑEDA 05-28-19: PATIENT'S OXYGEN SAT CHECKED ON ROOM AIR AT REST 88%. OXYGEN SATURATION DROPPED TO 84% ON RA WITH EXERTION. RISK FACTORS / RESULTS AND LOCATION IN MR: H&P 05-22-19: ? BRONCHITIS, SOB AND CP, FORMER SMOKER, IT WAS REPORTED THAT HER PULSE OX ON ROOM AIR WAS 80% TO 85%, IN MODERATE RESPIRATORY DISTRESS, COPD WITH POSSIBLE EXACERBATION, THE PATIENT REPORTS THAT SHE HAS A HX OF BRONCHITIS, BUT SHE SAID SHE WAS NEVER TOLD THAT SHE HAD COPD? TREATMENTS / RESULTS AND LOCATION IN MR: H&P 05-22-19: OXYGEN TO KEEP SAT MORE THAN 92%., DUONEBS SCHEDULED AND NEEDED Acute Respiratory Failure: ABG pH < 7.35 or > 7.45; Decreased oxygen saturation (<90% room air or < 95% on oxygen); PCO2 > 50 mm Hg; PO2 < 60 mm Hg; Labored or rapid respirations ARDS: Dx Criteria [[place] ARDS]: Respiratory symptoms within one week of a known clinical insult (e.g. shock, infection, surgery, trauma) Bilateral opacities in CXR/Chest CT not due to CHF or fluid (This form is maintained as a part of the permanent medical record) 2014 [employer]. All Rights Reserved TIFFANY [email or web address] Office: [phone] [facility] HOSPITALChandrakant
--- NOTE | 2019-05-29 02:43 | DIS ---
DATE OF ADMISSION: 05/22/2019 DATE OF DISCHARGE: 05/28/2019 PRIMARY CARE PROVIDER: Dr. Sukhwinder Dawson. DISCHARGE DIAGNOSES: 1. Acute on chronic hypoxic respiratory failure, present on admission. 2. Chronic obstructive pulmonary disease exacerbation. 3. Moderate protein-calorie malnutrition. CONDITION OF PATIENT ON THE DAY OF DISCHARGE: Stable. I assessed Ms. Pineda on the day of discharge. She denies any chest pain or shortness of breath. Vital signs are stable. S1 and S2 are heard, regular. Lungs are clear to auscultation bilaterally. DISCHARGE MEDICATIONS: She is being discharged home on oral steroid taper and levofloxacin 500 mg daily for 4 days. Otherwise, no change was made to her pre-admission home medications. HOSPITAL COURSE: Ms. Pineda is a pleasant 88-year-old lady, who was admitted to [facility] on 05/22/2019, for acute on chronic hypoxic respiratory failure secondary to COPD exacerbation. She improved with oxygen, steroids, antibiotics, and bronchodilators. She was still needing supplemental oxygen after resolution of COPD exacerbation. Arrangements are being made for home oxygen. She was also evaluated by Therapy Services. She has been recommended home health with physical therapy. POST-ACUTE CARE FOLLOWUP: The patient is advised to follow up with primary care provider in 3 days' time. ACTIVITY: As tolerated. DIET: Heart healthy. Many thanks for allowing me to participate in your patient's care. Please feel free to contact me with any questions or concerns. DISCHARGE DESTINATION: Home. TIME SPENT: Total amount of time spent coordinating this discharge: 31 minutes. Job ID: [id number]
--- NOTE | 2019-06-03 17:12 | EKG ---
Test Reason : STAT Blood Pressure : / mmHG Vent. Rate : 116 BPM Atrial Rate : 116 BPM P-R Int : 156 ms QRS Dur : 066 ms QT Int : 338 ms P-R-T Axes : 059 014 037 degrees QTc Int : 469 ms Sinus tachycardia with Premature atrial complexes Otherwise normal ECG When compared with ECG of 22-MAY-2019 21:10, (Unconfirmed) No significant change was found Confirmed by JOHN VASQUEZ M.D. ([id number]) on 06/03/2019 5:12:27 PM Referred By: AMERICA LANGSTON Confirmed By:JOHN VASQUEZ M.D.
== END 2019-05-28 18:12 | disposition home or self-care (01) | DRG 189 ==
LOC: ERS 20:59 → ERHOLD 23:46 → 2NO 05-23 05:15 → ONC 05-27 22:40
PROVIDERS: ADMIT Internal Medicine; ATTEND Internal Medicine
DX: J96.21 Acute and chronic respiratory failure with hypoxia (principal); J44.1 Chronic obstructive pulmonary disease with (acute) exacerbation; E44.0 Moderate protein-calorie malnutrition; F02.80 Dementia in other diseases classified elsewhere, unspecified severity, without behavioral disturbance, psychotic disturbance, mood disturbance, and anxiety; G30.9 Alzheimer's disease, unspecified; Z68.21 Body mass index [BMI] 21.0-21.9, adult; E03.9 Hypothyroidism, unspecified; I10 Essential (primary) hypertension; Z90.710 Acquired absence of both cervix and uterus; Z90.49 Acquired absence of other specified parts of digestive tract; Z87.440 Personal history of urinary (tract) infections; Z87.891 Personal history of nicotine dependence; Z87.442 Personal history of urinary calculi; Z88.1 Allergy status to other antibiotic agents; Z88.5 Allergy status to narcotic agent; Z88.0 Allergy status to penicillin; Z88.2 Allergy status to sulfonamides; K21.9 Gastro-esophageal reflux disease without esophagitis; H40.9 Unspecified glaucoma
CPT/HCPCS: 36415; 71045; 71275; 80053; 83605; 84484; 85025; 87040; 93005; 93010; 94640; 94760; 96361; 96365; 96366; 96375; J0456; J0696; J1956; J2405; J2920; J2930; J3490; J7050; J7512; J7620; Q0163; Q9967